=== PATIENT | female | born 1930 | race Caucasian/White ===

== ENCOUNTER 2016-09-17 13:08 | Observation (INO) | payer OTHER, BC ==
[2016-09-17 13:17] VITALS: BMI 33.9
--- NOTE | 2016-09-17 14:13 | PDOC ---
History of Present Illness - History of Present Illness Initial Comments: 09/17/16 18:09 The patient is a 86 year old female, with a significant past medical history of Afib, CHF, hypertension, anemia, and gallstones, who presents to the emergency department via taxi from [address] [place] [address] with persistent nausea withand intermittent diarrhea since Thursday. The patient reports mild left upper quadrant discomfort after episodes of constant dry-heaving. She denies episode of emesis , but reports a few episodes of small, watery, yellow bowel movements. She states she has not eaten a meal since lunch at the nursing facility on Thursday. She states she can not tolerate food, but states she has been drinking water without exacerbating her symptoms. She denies any recent travels or sick contacts. Pt denies any worsening of symptoms with exertion but states she hasnt really gotten to get out of her house since not feeling well. She denies chest pain, shortness of breath, diaphoresis, headache and dizziness. She denies fever, chills, vomit, and constipation. She denies dysuria , frequency, urgency and hematuria. Allergies: IV contrast Past surgical history: appendectomy PMD: Dr. Moeller Repair Specialist - Dr. Floyd <Otilia Henderson - Last Filed: 09/17/16 18:25> <Renzo Zaman - Last Filed: 09/17/16 18:47> - General Chief Complaint: Diarrhea Stated Complaint: LOSS OF APPETITE, TREMORS Time Seen by Provider: 09/17/16 14:05 Past History <Otilia Henderson - Last Filed: 09/17/16 18:25> - Past Medical History Anemia: Yes Cardiac Disorders: Yes (A FIB) CHF: Yes HTN: Yes Thyroid Disease: Yes (DENIES) - Surgical History Appendectomy: Yes Cholecystectomy: Yes - Immunization History Td Vaccination: Yes Immunization Up to Date: (UNKNOWN) - Psycho/Social/Smoking Cessation Hx Anxiety: No Suicidal Ideation: No Smoking Status: No Smoking History: Never smoked Have you smoked in the past 12 months: No Number of Cigarettes Smoked Daily: 0 Hx Alcohol Use: No Drug/Substance Use Hx: No Substance Use Type: None Hx Substance Use Treatment: No <Renzo Zaman - Last Filed: 09/17/16 18:47> - Past Medical History Allergies/Adverse Reactions: Allergies Allergy/AdvReac Type Severity Reaction Status Date / Time Iodinated Contrast Media - Allergy Unknown Hives Verified 09/17/16 13:18 Oral and morphine Allergy Nausea for Verified 09/17/16 13:18 long periods IV Contrast dyes Allergy Hives Uncoded 09/17/16 13:18 Home Medications: Ambulatory Orders Warfarin Sodium [Coumadin] 5 mg PO HS 04/07/14 Latanoprost 0.005% Eye Drops [Xalatan 0.005% Eye Drops -] 0 drop ASDIR 09/17/16 Metoprolol Tartrate [Lopressor -] 25 mg PO DAILY 09/17/16 Nitroglycerin [Minitran] 1 each TD ASDIR 09/17/16 Olmesartan Medoxomil [Benicar (Nf)] 0 mg PO ASDIR 09/17/16 Sennosides/Docusate Sodium [Senna S Tablet] 1 each PO ASDIR 09/17/16 Review of Systems - Review of Systems Able to Perform ROS?: Yes Comments:: 09/17/16 18:10 CONSTITUTIONAL: +Loss of Appetite No reported: Fever, Chills, Diaphoresis, Generalized Weakness , Malaise, HEENT: No reported: Rhinorrhea, Nasal Congestion, Throat Pain, Throat Swelling, Difficulty Swallowing, Mouth Swelling, Ear Pain, Eye Pain, Visual Changes CARDIOVASCULAR: No reported: Chest Pain, Syncope, Palpitations, Irregular Heart Rate, Lightheadedness, Peripheral Edema RESPIRATORY: No reported: Cough, Shortness of Breath, SOB with Exertion, Orthopnea, Wheezing , Stridor, Hemoptysis GASTROINTESTINAL: + Nausea, Diarrhea, No reported: Abdominal pain, Abdominal Distension, Vomiting ,Constipation, Melena, Hematochezia GENITOURINARY: No reported: Dysuria, Frequency, Urgency, Hesitancy, Flank Pain, Genital Pain MUSCULOSKELETAL: No reported: Myalgia, Arthralgia, Joint Swelling, Back pain, Neck Pain SKIN: No reported: Rash, Itching, Pallor HEMEATOLOGIC/IMMUNOLOGIC: No reported: Easy Bleeding, Easy Bruising, Lymphadenopathy, Frequent infections ENDOCRINE: No reported: Unexplained Weight Gain, Unexplained Weight Loss, Heat Intolerance , Cold Intolerance NEUROLOGIC: No reported: Headache, Focal Weakness, Paresthesias, Vertigo, Lightheadedness, Unsteady Gait, Seizure, Mental Status Changes, Incontinence PSYCHIATRIC: No reported: Anxiety, Depression <Morenzi,Otilia - Last Filed: 09/17/16 18:25> *Physical Exam - Vital Signs Last Vital Signs Temp Pulse Resp BP Pulse Ox 98.5 F 78 20 161/83 96 09/17/16 13:14 09/17/16 13:14 09/17/16 13:14 09/17/16 13:14 09/17/16 13:14 - Physical Exam Comments: 09/17/16 18:10 GENERAL: The patient is awake, alert, and fully oriented, Nontoxic - in no acute distress. HEAD: Normocephalic, atraumatic. EYES: extraocular movements intact, sclera anicteric, conjunctiva clear. ENT: Normal voice, Moist mucous membranes. NECK: Normal range of motion, supple LUNGS: Breath sounds equal, clear to auscultation bilaterally. No wheezes, no rhonchi, no rales. HEART: irregularly irregular, without murmur, rub or gallop. ABDOMEN: Soft, nontender, normoactive bowel sounds. No guarding, no rebound.No CVA tenderness EXTREMITIES: Normal range of motion, no edema. No clubbing or cyanosis. No cords, erythema, or tenderness. NEUROLOGICAL: No facial assymetry, Normal speech, PSYCH: Normal mood, normal affect. SKIN: Warm, Dry, normal turgor, <Otilia Henderson - Last Filed: 09/17/16 18:25> - Vital Signs Last Vital Signs Temp Pulse Resp BP Pulse Ox 98.5 F 78 20 161/83 96 09/17/16 13:14 09/17/16 13:14 09/17/16 13:14 09/17/16 13:14 09/17/16 13:14 <Renzo Zaman - Last Filed: 09/17/16 18:47> Heart Score/ECG Review - ECG Impressions Comment:: 09/17/16 18:08 Twelve-lead EKG was performed and reviewed by me. Irregularly irregular Left anterior fascicular block No significant changes when compared with EKG dated 12/03/2014 <Renzo Zaman - Last Filed: 09/17/16 18:47> ED Treatment Course - LABORATORY CBC & Chemistry Diagram: 09/17/16 15:20 09/17/16 15:20 - RADIOLOGY Radiograph Interpretation: 09/17/16 15:42 CXR was read by Dr. 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 Cardiomegaly. Mild increased density in the right lower lung zone, however, this are is not optimally seen in part due to patient rotation. Prominence of right hilum and mass cannot be excluded. CT could be helpful to further evaluate. - Medications Given in the ED: ED Medications Discontinued Medications Generic Name Dose Route Start Last Admin Trade Name Freq PRN Reason Stop Dose Admin Sodium Chloride 500 mls @ 500 mls/hr 09/17/16 14:38 09/17/16 15:25 Normal Saline - IV 09/17/16 15:37 500 mls/hr ASDIR STA Administration Ondansetron HCl 4 mg 09/17/16 14:38 09/17/16 15:25 Zofran Injection IVPB 09/17/16 14:39 4 mg ONCE ONE Administration <Otilia Henderson - Last Filed: 09/17/16 18:25> - LABORATORY CBC & Chemistry Diagram: 09/17/16 15:20 09/17/16 15:20 <Renzo Zaman - Last Filed: 09/17/16 18:47> Medical Decision Making - Medical Decision Making 09/17/16 18:21 Dr. Floyd, stereotyper helper, was oaged via phone answering service at 18:12 requesting a call back for doctor to doctor consult. Dr. Carlisle was paged via phone answering service at 18:22 requesting a call back for doctor to doctor consult and admission of Dr. Moeller's patient. Dr. Carlisle returned the call at 18:25 and the patient's case was discussed. She accepts the patient for admission at this time. <Otilia Henderson - Last Filed: 09/17/16 18:25> - Medical Decision Making 09/17/16 16:47 86Y hx of afib, chf, htn, anemia, gall stones present with persistent nausea and intermittent diarrhea x 5 days pt denies any viji abd pain, fever/chlls, diaphoresis, chest pain although the pt notes she has bene having some STEVENSON. pts exxam is unremarakble, without any notable abd tenderness. differential for the pts persistent nausea and intermittnet diarrhea includes gastroenteritis, gastritis, possible acs as pts sypmtoms are fairly vague will obtain blood work, ekg, will give pepcid, maalox gentle fluid hydration 09/17/16 18:04 trop noted borderline at .11, ?from old event? will bear repeating to trend ekg unchanged from prior will admit to observation for further management will discuss with dr. carlisle and dr. floyd A portion of this note was documented by scribe services under my direction. I have reviewed the details of the note, within reason, and agree with the documentation with the following case summary and management plan written by me 09/17/16 18:[address] Giang and dr. Carlisle will place pt in observation for r/o mi, hydration stable for tele obs Case discussed in detail with admitting physician including history, physical exam and ancillary studies. Admitting physician has assumed care for the patient, will follow all pending diagnostics and will complete the evaluation and treatment. <Renzo Zaman - Last Filed: 09/17/16 18:47> *DC/Admit/Observation/Transfer - Attestations Scribe Attestion: 09/17/16 18:11 Documentation prepared by Otilia Henderson, acting as medical claims assistant for Renzo Zaman MD <Otilia Henderson - Last Filed: 09/17/16 18:25> - Discharge Dispostion Admit: Yes <Renzo Zaman - Last Filed: 09/17/16 18:47> Diagnosis at time of Disposition: Nausea, Gastroenteritis - Discharge Dispostion Condition at time of disposition: Stable - Referrals Referrals: Joelle Moeller [Primary Care Provider] -
[2016-09-17] MEDS ORDERED: ONDANSETRON 4 MG/2 ML VIAL IVPB ONE (14:38)
[2016-09-17] MEDS ORDERED: SODIUM CHLORIDE 500 ML IV STA ×2 (14:38→17:58)
[2016-09-17] MEDS ORDERED: ONDANSETRON 4 MG/2 ML VIAL ONE (15:27)
[2016-09-17 15:33] LABS: BASOPHIL 0.4 % (0-2.0); EOSINOPHIL 0.7 % (0-4.5); MCH 28.8 pg (25.7-33.7); MCHC 32.6 g/dl (32.0-36.0); MEAN CELL VOLUME 88.3 fl (80-96); NEUTROPHILS 65.7 % (42.8-82.8); PLATELET COUNT 200 K/MM3 (134-434); RDW 13.9 % (11.6-15.6); WHITE BLOOD COUNT 5.3 K/mm3 (4.0-10.0)
[2016-09-17] MEDS ORDERED: FAMOTIDINE 20 MG/50 ML IVPB 20 MG in PREMIX 50 IVPB ONE (15:39)
[2016-09-17] MEDS ORDERED: MAG HYDROX/AL HYDROX/SIMETH 355 ML ORAL.SUSP PO ONE (15:39)
[2016-09-17] MEDS ORDERED: MAG HYDROX/AL HYDROX/SIMETH 30 ML UNIT-DOSE CUP ONE (15:43)
[2016-09-17] MEDS ORDERED: FAMOTIDINE 20 MG/50 ML IVPB 50 ML IVPB ONE (15:43)
[2016-09-17 15:52] LABS: ALBUMIN 3.5 g/dl (3.4-5.0); CALCIUM 8.6 mg/dL (8.5-10.1); COCKROFT - GAULT 62.968
[2016-09-17 15:54] LABS: TOT PROT 6.9 g/dl (6.4-8.2)
[2016-09-17 15:57] LABS: TROPONIN I 0.11 ng/ml (0.00-0.05)
[2016-09-17 17:00] LABS: URINE APPEARANCE CLEAR; URINE BILIRUBIN NEGATIVE (NEGATIVE); URINE COLOR LTYELLOW; URINE GLUCOSE (UA) NEGATIVE (NEGATIVE); URINE KETONE NEGATIVE (NEGATIVE); URINE NITRITE NEGATIVE (NEGATIVE); URINE PROTEIN NEGATIVE (NEGATIVE); URINE UROBILINOGEN NEGATIVE E.U./dl (0.2-1.0)
[2016-09-17 17:05] LABS: URINE BLOOD 1+ (NEGATIVE); URINE LEUK ESTERASE 1+ (NEGATIVE)
[2016-09-17 17:07] LABS: URINE BACTERIA RARE /hpf (NONE SEEN); URINE MUCUS RARE; URINE RBC 1 /hpf (0-3); URINE WBC 10 /hpf (3-5)
[2016-09-17] MEDS ORDERED: ASPIRIN 81 MG CHEWABLE TABLETS PO ONE (17:17)
[2016-09-17 19:11] LABS: INR 1.86 (0.82-1.09); PROTHROMBIN TIME (PATIENT) 20.7 SEC (9.98-11.88)
[2016-09-18] MEDS: WARFARIN NA 5 MG TABLET (UD) PO SCH ×2 (00:12→18:17)
[2016-09-18] MEDS: METOPROLOL TARTRATE 25 MG TABLET (FP) PO SCH ×3 (00:13→21:12)
[2016-09-18 07:12] LABS: BASOPHIL 0.7 % (0-2.0); EOSINOPHIL 1.4 % (0-4.5); MCH 29.6 pg (25.7-33.7); MCHC 33.6 g/dl (32.0-36.0); NEUTROPHILS 54.6 % (42.8-82.8); PLATELET COUNT 176 K/MM3 (134-434); RDW 13.9 % (11.6-15.6); WHITE BLOOD COUNT 4.7 K/mm3 (4.0-10.0)
[2016-09-18 07:33] LABS: INR 2.03 (0.82-1.09); PROTHROMBIN TIME (PATIENT) 22.6 SEC (9.98-11.88)
[2016-09-18 07:41] LABS: CALCIUM 8.6 mg/dL (8.5-10.1)
[2016-09-18 07:42] LABS: COCKROFT - GAULT 66.9715; CREATININE 0.9 mg/dL (0.55-1.02)
--- NOTE | 2016-09-18 08:40 | HP ---
Admitting History and Physical - Admission History of Present Illness: The patient is a 86 year old female, with a significant past medical history of Afib, CHF, hypertension, anemia, and gallstones, who presents to the emergency department via taxi from [address] [place] [address] with persistent nausea and intermittent diarrhea since Thursday. The patient reports mild left upper quadrant discomfort after episodes of constant dry-heaving. She denies episode of emesis, but reports a few episodes of small, watery, yellow bowel movements. she denies fever / chills / blood in stools. She states she has not eaten a meal since lunch on Thursday. She states she can not tolerate food, but states she has been drinking water without exacerbating her symptoms. She denies any recent travels or sick contacts. Pt denies any worsening of symptoms with exertion but has remained at home for last few days She denies chest pain, shortness of breath, diaphoresis, headache and dizziness. this morning tolerating PO well - no nausea / vomiting reports 7 episodes of diarrhea last nght ?? reports only watery stools History Source: Patient, Medical Record Limitations to Obtaining History: No Limitations - Past Medical History [employer]: Yes: Vertigo Cardiovascular: Yes: AFIB (on coumadin), CHF (diastolic), HTN Gastrointestinal: Yes: Other (hx hepatitis A / reports similar episodes about every 2 months most subside on their own -- takes Zofran PRN as out patient) ...: No Heme/Onc: Yes: Anemia Endocrine: Yes: [place]'s Disease, Hypothyroidism, Other (Goiter) - Past Surgical History Past Surgical History: Yes: Appendectomy, Hysterectomy - Smoking History Smoking history: Never smoked Have you smoked in the past 12 months: No Aproximately how many cigarettes per day: 0 - Alcohol/Substance Use Hx Alcohol Use: No History of Substance Use: reports: None - Social History Usual Living Arrangement: Yes: Alone ADL: Support Services History of Recent Travel: No Home Medications - Allergies Allergies/Adverse Reactions: Allergies Allergy/AdvReac Type Severity Reaction Status Date / Time Iodinated Contrast Media - Allergy Unknown Hives Verified 09/17/16 13:18 Oral and morphine Allergy Nausea for Verified 09/17/16 13:18 long periods IV Contrast dyes Allergy Hives Uncoded 09/17/16 13:18 - Home Medications Home Medications: Ambulatory Orders Warfarin Sodium [Coumadin] 5 mg PO HS 04/07/14 Latanoprost 0.005% Eye Drops [Xalatan 0.005% Eye Drops -] 0 drop ASDIR 09/17/16 Metoprolol Tartrate [Lopressor -] 25 mg PO DAILY 09/17/16 Nitroglycerin [Minitran] 1 each TD ASDIR 09/17/16 Olmesartan Medoxomil [Benicar (Nf)] 0 mg PO ASDIR 09/17/16 Sennosides/Docusate Sodium [Senna S Tablet] 1 each PO ASDIR 09/17/16 Family Disease History - Family Disease History Family Disease History: Heart Disease: Sister (1 sister of heart dz; another sister of Alzheimer's) Review of Systems - Review of Systems Constitutional: reports: Loss of Appetite, Malaise, Weakness Eyes: reports: No Symptoms HENT: reports: No Symptoms Neck: reports: No Symptoms Cardiovascular: reports: No Symptoms Respiratory: reports: No Symptoms Gastrointestinal: reports: Abdominal Pain, Diarrhea, Nausea Genitourinary: reports: No Symptoms Breasts: reports: No Symptoms Reported Musculoskeletal: reports: No Symptoms Integumentary: reports: No Symptoms Neurological: reports: No Symptoms Endocrine: reports: No Symptoms Hematology/Lymphatic: reports: No Symptoms Psychiatric: reports: No Symptoms Physical Examination Vital Signs: Vital Signs Temperature 98.1 F 09/18/16 05:00 Pulse Rate 68 09/18/16 05:00 Respiratory Rate 18 09/18/16 05:00 Blood Pressure 179/72 09/18/16 05:00 O2 Sat by Pulse Oximetry (%) 97 09/17/16 22:36 Constitutional: Yes: Well Nourished, No Distress, Calm Eyes: Yes: Conjunctiva Clear, EOM Intact HENT: Yes: Atraumatic, Normocephalic Neck: Yes: WNL, Supple, Trachea Midline Cardiovascular: Yes: WNL, Pulse Irregular Respiratory: Yes: Regular, CTA Bilaterally Gastrointestinal: Yes: Normal Bowel Sounds, Soft, Abdomen, Obese, Tenderness ( diffusely tender left lower quadrant / no guarding) Renal/: Yes: WNL Musculoskeletal: Yes: WNL Extremities: Yes: WNL Peripheral Pulses WNL: Yes Peripheral Pulses: Left Radial: 1+, Right Radial: 1+, Left Doralis Pedis: 1+, Right Dorsalis Pedis: 1+, Left Femoral: 1+, Right Femoral: 1+ Integumentary: Yes: WNL Wound/Incision: Yes: Clean/Dry Neurological: Yes: Alert, Oriented Psychiatric: Yes: Alert, Oriented Labs: CBC, BMP 09/18/16 05:35 09/18/16 05:35 Problem List - Problems (1) Gastroenteritis Code(s): K52.9 - NONINFECTIVE GASTROENTERITIS AND COLITIS, UNSPECIFIED (2) Nausea Code(s): R11.0 - NAUSEA (3) Atrial fibrillation Code(s): I48.91 - UNSPECIFIED ATRIAL FIBRILLATION (4) Dizziness Code(s): R42 - DIZZINESS AND GIDDINESS (5) Fatigue Code(s): R53.83 - OTHER FATIGUE (6) Hypertension Code(s): I10 - ESSENTIAL (PRIMARY) HYPERTENSION
[2016-09-18] MEDS: PANTOPRAZOLE 40 MG TABLET (FP) PO SCH (09:55)
[2016-09-18] MEDS ORDERED: METOPROLOL TARTRATE 25 MG TABLET (FP) PO SCH (10:00)
[2016-09-18] MEDS ORDERED: LOSARTAN POTASSIUM 50 MG TABLET (FP) PO SCH (10:00)
[2016-09-18 10:40] LABS: TROPONIN I 0.1 ng/ml (0.00-0.05)
--- NOTE | 2016-09-18 11:33 | CON.CARD ---
Cardiology Consult (text) - Consultation Consultation Note: cc: sent from [facility] for n/v hpi: 86 f hx dchf, htn, afib, dvts, hep b, sent from [facility] for n/v. For years has intermittent episodes of n/v/lack of appetite. Hadn't happened in a while then occurred few days ago with nausea/vomiting/diarrhea/abd pain. No cp, sob, palps, dizzy, loc, pnd, orthopnea, le edema. Ate breakfast this AM and feeling better now. Sees dr floyd for cardio. pmh: per hpi psh: appendectomy, hysterectomy social: no tob fam: no premature cad, scd ros: per hpi; no fever, cough, nasal congestion, PHILIPPE, vision changes, rash, gib , hematuria, dysuria meds: Ambulatory Orders Warfarin Sodium [Coumadin] 5 mg PO HS 04/07/14 Latanoprost 0.005% Eye Drops [Xalatan 0.005% Eye Drops -] 0 drop ASDIR 09/17/16 Metoprolol Tartrate [Lopressor -] 25 mg PO DAILY 09/17/16 Nitroglycerin [Minitran] 1 each TD ASDIR 09/17/16 Olmesartan Medoxomil [Benicar (Nf)] 0 mg PO ASDIR 09/17/16 Sennosides/Docusate Sodium [Senna S Tablet] 1 each PO ASDIR 09/17/16 pe: Vital Signs Period Temp Pulse Resp BP Sys/Menjivar Pulse Ox Last 24 Hr 97.9 F-98.9 F 60-78 18-20 151-191/72-98 96-97 nad no jvd irreg s1s2 no mrg cta bl nl eff aaox3 no le e/c/c abd nt nd pos bs no jaundice diaphoresis pos dp pt no carotid bruits Laboratory Last Values WBC 4.7 K/mm3 (4.0-10.0) 09/18/16 05:35 RBC 4.76 M/mm3 (3.60-5.2) 09/18/16 05:35 Hgb 14.1 GM/dL (10.7-15.3) 09/18/16 05:35 Hct 41.8 % (32.4-45.2) 09/18/16 05:35 MCV 88.0 fl (80-96) 09/18/16 05:35 MCHC 33.6 g/dl (32.0-36.0) 09/18/16 05:35 RDW 13.9 % (11.6-15.6) 09/18/16 05:35 Plt Count 176 K/MM3 (134-434) 09/18/16 05:35 MPV 9.0 fl (7.5-11.1) 09/18/16 05:35 Neutrophils % 54.6 % (42.8-82.8) 09/18/16 05:35 Lymphocytes % 31.1 % (8-40) D 09/18/16 05:35 Monocytes % 12.2 % (3.8-10.2) H 09/18/16 05:35 Eosinophils % 1.4 % (0-4.5) D 09/18/16 05:35 Basophils % 0.7 % (0-2.0) 09/18/16 05:35 INR 2.03 (0.82-1.09) H 09/18/16 05:35 Sodium 142 mmol/L (136-145) 09/18/16 05:35 Potassium 3.7 mmol/L (3.5-5.1) 09/18/16 05:35 Chloride 104 mmol/L (98-107) 09/18/16 05:35 Carbon Dioxide 26 mmol/L (21-32) 09/18/16 05:35 Anion Gap 12 (8-16) 09/18/16 05:35 BUN 10 mg/dL (7-18) 09/18/16 05:35 Creatinine 0.9 mg/dL (0.55-1.02) 09/18/16 05:35 Creat Clearance w eGFR 52.82 (>60) 09/17/16 15:20 Random Glucose 95 mg/dL (74-106) 09/18/16 05:35 Calcium 8.6 mg/dL (8.5-10.1) 09/18/16 05:35 Magnesium 2.0 mg/dL (1.8-2.4) 09/18/16 05:35 Total Bilirubin 1.0 mg/dL (0.2-1.0) 09/17/16 15:20 AST 30 U/L (15-37) D 09/17/16 15:20 ALT 22 U/L (12-78) 09/17/16 15:20 Alkaline Phosphatase 55 U/L (45-117) 09/17/16 15:20 Creatine Kinase 157 IU/L (26-192) 09/18/16 05:35 Troponin I 0.10 ng/ml (0.00-0.05) H 09/18/16 05:35 Total Protein 6.9 g/dl (6.4-8.2) 09/17/16 15:20 Albumin 3.5 g/dl (3.4-5.0) 09/17/16 15:20 Lipase 158 U/L (73-393) 09/17/16 15:20 Urine Color Ltyellow 09/17/16 16:26 Urine Appearance Clear 09/17/16 16:26 Urine pH 5.0 (5.0-8.0) D 09/17/16 16:26 Ur Specific [place] <= 1.005 (1.005-1.025) 09/17/16 16:26 Urine Protein Negative (NEGATIVE) 09/17/16 16:26 Urine Glucose (UA) Negative (NEGATIVE) 09/17/16 16:26 Urine Ketones Negative (NEGATIVE) 09/17/16 16:26 Urine Blood 1+ (NEGATIVE) H 09/17/16 16:26 Urine Nitrite Negative (NEGATIVE) 09/17/16 16:26 Urine Bilirubin Negative (NEGATIVE) 09/17/16 16:26 Urine Urobilinogen Negative E.U./dl (0.2-1.0) 09/17/16 16:26 Ur Leukocyte Esterase 1+ (NEGATIVE) H 09/17/16 16:26 Urine RBC 1 /hpf (0-3) 09/17/16 16:26 Urine WBC 10 /hpf (3-5) 09/17/16 16:26 Ur Epithelial Cells Rare /hpf (FEW) 09/17/16 16:26 Urine Bacteria Rare /hpf (NONE SEEN) 09/17/16 16:26 Urine Mucus Rare 09/17/16 16:26 ecg 09/17/16: afib, 70, nl qtc, lvh, no ischemic changes cxr: no chf echo 09/2014: nl lv/rv, mod lae, mild ar/mr tele: rate controlled afib a/p: 86 f hx dchf, htn, afib, dvts, hep b, sent from [facility] for n/v. n/v/d: -no obvious cardiac etiology -trop in borderline range with nl ck and flat trend. Prior similar trop levels in 2013 and 2014 so these elevations represent her baseline and not acs. -w/u per pmd dchf: -stable, no vol overload -check updated echo htn: -cont home meds, likely elevated 2/2 pain yesterday, monitor afib: -rate controlled on bb -cont ac per inr if echo benign then ok for dc from cardiac pov
[2016-09-18] MEDS: NITROGLYCERIN 0.2 MG/HOUR TD PATCH TD SCH (12:01)
--- NOTE | 2016-09-18 16:30 | EKG ---
Test Reason : Blood Pressure : / mmHG Vent. Rate : 068 BPM Atrial Rate : 052 BPM P-R Int : 000 ms QRS Dur : 122 ms QT Int : 440 ms P-R-T Axes : 000 -52 060 degrees QTc Int : 467 ms ATRIAL FIBRILLATION LEFT ANTERIOR FASCICULAR BLOCK LEFT VENTRICULAR HYPERTROPHY WITH QRS WIDENING ABNORMAL ECG WHEN COMPARED WITH ECG OF 03-DEC-2014 16:24, NO SIGNIFICANT CHANGE WAS FOUND Confirmed by AP RESTREPO, VIV ([id number]) on 09/18/2016 4:30:21 PM Referred By: Confirmed By:VIV DE SOUZA MD
[2016-09-18] MEDS ORDERED: LOSARTAN POTASSIUM 50 MG TABLET (FP) PO ONE (18:00)
[2016-09-18] MEDS ORDERED: WARFARIN NA 5 MG TABLET (UD) PO SCH (18:00)
[2016-09-18] MEDS: ONDANSETRON 4 MG/2 ML VIAL IVPUSH PRN (18:17)
[2016-09-18] MEDS: SENNOSIDES 8.6MG TABLET (FP) PO SCH (21:13)
[2016-09-18] MEDS ORDERED: PT OWN MED DRAWER 7, Y5N ONE (22:39)
[2016-09-19] MEDS ORDERED: PT OWN MED DRAWER 7, Y5N ONE (09:27)
[2016-09-19] MEDS: LOSARTAN POTASSIUM 50 MG TABLET (FP) PO SCH (09:29)
[2016-09-19] MEDS: amLODIPine BESYLATE 5 MG TABLET (FP) PO SCH (09:29)
[2016-09-19] MEDS: METOPROLOL TARTRATE 25 MG TABLET (FP) PO SCH ×2 (09:29→21:52)
[2016-09-19] MEDS: PANTOPRAZOLE 40 MG TABLET (FP) PO SCH (09:29)
--- NOTE | 2016-09-19 10:54 | PN ---
Progress Note (short form) - Note Progress Note: s: no cp sob palps dizzy; ate this AM, stomach feeling better o: Vital Signs Period Temp Pulse Resp BP Sys/Menjivar Pulse Ox Last 24 Hr 97.5 F-98.1 F 59-73 16-18 165-178/69-85 97 nad no jvd irreg s1s2 no mrg cta bl nl eff aaox3 no le e/c/c abd nt nd pos bs no jaundice diaphoresis Current Medications Generic Name Dose Route Start Last Admin Trade Name Freq PRN Reason Stop Dose Admin Amlodipine Besylate 5 mg 09/19/16 10:00 09/19/16 09:29 Norvasc - PO 5 mg DAILY AMALIA Administration Losartan Potassium 100 mg 09/19/16 10:00 09/19/16 09:29 Cozaar - PO 100 mg DAILY AMALIA Administration Metoprolol Tartrate 25 mg 09/17/16 23:45 09/19/16 09:29 Lopressor - PO 25 mg BID AMALIA Administration Nitroglycerin 0.2 mg 09/18/16 10:00 09/18/16 12:01 Nitro-Dur Patch - TD 0.2 mg DAILY AMALIA Administration Ondansetron HCl 4 mg 09/18/16 09:01 09/18/16 18:17 Zofran Injection IVPUSH 4 mg Q6H PRN Administration NAUSEA AND/OR VOMITING Pantoprazole Sodium 40 mg 09/18/16 10:00 09/19/16 09:29 Protonix - PO 40 mg DAILY AMALIA Administration Senna 1 tab 09/18/16 22:00 09/18/16 21:13 Senna - PO 1 tab HS AMALIA Administration Warfarin Sodium 5 mg 09/17/16 23:45 09/18/16 18:17 Coumadin - PO 5 mg DAILY@1800 AMALIA Administration CBC, BMP 09/18/16 05:35 09/18/16 05:35 ecg 09/17/16: afib, 70, nl qtc, lvh, no ischemic changes cxr: no chf echo 09/2014: nl lv/rv, mod lae, mild ar/mr echo 09/2016: nl lv/rv, mild lae, mild mr, mild pulm htn, mod tele: rate controlled afib a/p: 86 f hx dchf, htn, afib, dvts, hep b, sent from [facility] for n/v. n/v/d: -no obvious cardiac etiology -trop in borderline range with nl ck and flat trend. Prior similar trop levels in 2013 and 2014 so these elevations represent her baseline and not acs. -w/u per pmd/GI dchf: -stable, no vol overload -echo with nl lvef, no severe valve dz htn: -remains elevated despite increasing cozaar yesterday. Will add norvasc 5mg today. afib: -rate controlled on bb -cont ac per inr : -moderate on echo here, cont routine outpt monitoring
[2016-09-19] MEDS: NITROGLYCERIN 0.2 MG/HOUR TD PATCH TD SCH (11:43)
[2016-09-19] MEDS: ONDANSETRON 4 MG/2 ML VIAL IVPUSH PRN (14:10)
--- NOTE | 2016-09-19 16:02 | CON.GI ---
Consult Consult Specialty:: GI Referred by:: Dr. Carlisle Reason for Consultation:: nausea, vomiting and diarrhea - History of Present Illness Chief Complaint: I was nauseaous and couldn't take any food for 4 days History of Present Illness: 86F admitted though [facility] ER for evaluation of nausea, vomiting and diarrhea. She is followed by Dr. Lenz and last saw him 03/05 for similar complaints. at that time he felt that she had chronic nausea without weight loss and advised CT head to exclude brain lesion (this has been performed and was negative), trial of an antidepressant, and he felt that he gallstones were not the cause of her chronic nausea. She says that this episode was different than previous as she simply could not tolerate any solids or liquids for 4 days priot to admission and did not want to eat. She had associated diarrhea as well however there was no abdominal pain. there were no fevers/chills. Electrolytes and BUN were normal on admission as was her WBC. There has been no diarrhea reported and seems to have been tolerating food during the admission. 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 She had an unrevealing non contrast CT scan of the abdomen and pelvis in 2013 aside from gallstones. - History Source History Provided By: Patient, Medical Record Limitations to Obtaining History: No Limitations - Past Medical History [employer]AD[employer]: Yes: Vertigo Cardio/Vascular: Yes: AFIB (on coumadin), CHF (diastolic), HTN, Other (Moderate aortic stenosis) Gastrointestinal: Yes: Other (hx hepatitis A / reports similar episodes about every 2 months most subside on their own -- takes Zofran PRN as out patient) ...: No Endocrine: Yes: Juniata's Disease, Hypothyroidism, Other (Goiter) - Past Surgical History Past Surgical History: Yes: Appendectomy, Hysterectomy - Alcohol/Substance Use Hx Alcohol Use: No History of Substance Use: reports: None - Smoking History Smoking history: Never smoked Have you smoked in the past 12 months: No Aproximately how many cigarettes per day: 0 - Social History Usual Living Arrangement: Assisted Living ADL: Support Services Place of : [place] History of Recent Travel: No Home Medications - Allergies Allergies/Adverse Reactions: Allergies Allergy/AdvReac Type Severity Reaction Status Date / Time Iodinated Contrast Media - Allergy Unknown Hives Verified 09/17/16 13:18 Oral and morphine Allergy Nausea for Verified 09/17/16 13:18 long periods IV Contrast dyes Allergy Hives Uncoded 09/17/16 13:18 - Home Medications Home Medications: Ambulatory Orders Warfarin Sodium [Coumadin] 5 mg PO HS 04/07/14 Latanoprost 0.005% Eye Drops [Xalatan 0.005% Eye Drops -] 0 drop ASDIR 09/17/16 Metoprolol Tartrate [Lopressor -] 25 mg PO DAILY 09/17/16 Nitroglycerin [Minitran] 1 each TD ASDIR 09/17/16 Olmesartan Medoxomil [Benicar (Nf)] 0 mg PO ASDIR 09/17/16 Sennosides/Docusate Sodium [Senna S Tablet] 1 each PO ASDIR 09/17/16 Family Disease History - Family Disease History Family Disease History: Heart Disease: Sister (1 sister of heart dz; another sister of Alzheimer's) Other Family History: No family history of colorectal cancer or other GI malignancy Review of Systems - Review of Systems Constitutional: denies: Chills, Diaphoresis Cardiovascular: denies: Chest Pain, Shortness of Breath Respiratory: denies: Cough Gastrointestinal: reports: Diarrhea, Nausea, Vomiting. denies: Abdominal Pain, Constipation, Dysphagia, Melena, Rectal Bleeding, Vomiting Blood Physical Exam-GI Vital Signs: Vital Signs Temperature 98.2 F 09/19/16 14:41 Pulse Rate 61 09/19/16 14:41 Respiratory Rate 16 09/19/16 14:41 Blood Pressure 157/90 09/19/16 14:41 O2 Sat by Pulse Oximetry (%) 95 09/19/16 09:00 Constitutional: Yes: Calm Eyes: No: Sclera Icterus Cardiovascular: Yes: Regular Rate and Rhythm, Murmur Respiratory: Yes: CTA Bilaterally Gastrointestinal Inspection: Yes: Scars (+ pelvic surgical scar). No: Distention ...Auscultate: Yes: Normoactive Bowel Sounds ...Palpate: No: Tenderness ...Percussion: No: Tympanitic ...Rectal Exam: Yes: Guaiac Negative (trace light brown stool) Edema: Yes (trace LE edema) Neurological: Yes: Alert, Oriented Labs: CBC, BMP 09/18/16 05:35 09/18/16 05:35 INR, PTT INR 2.03 (0.82-1.09) H 09/18/16 05:35 Hepatic Panel Total Bilirubin 1.0 mg/dL (0.2-1.0) 09/17/16 15:20 AST 30 U/L (15-37) D 09/17/16 15:20 ALT 22 U/L (12-78) 09/17/16 15:20 Alkaline Phosphatase 55 U/L (45-117) 09/17/16 15:20 Albumin 3.5 g/dl (3.4-5.0) 09/17/16 15:20 Problem List - Problems (1) Nausea Assessment/Plan: Acute on chronic complaint: CT scan of the abdomen and pelvis with PO contrast Low residue diet consider changing BP medication from benicar as it can cause a sprue like intestinal disease probiotic HIDA with EF If unrevealing, MRI of the abdomen with contrast (given her iodinated IV contrast allergy) If diarrhea, check stool for c. diff, O&P, culture, norovirus Code(s): R11.0 - NAUSEA
[2016-09-19] MEDS: LACTOBACILLUS ACIDOPHILUS 1 EACH TAB (FP) PO SCH (17:58)
[2016-09-19 18:06] LABS: INR 2.23 (0.82-1.09); PROTHROMBIN TIME (PATIENT) 24.9 SEC (9.98-11.88)
[2016-09-19] MEDS: WARFARIN NA 5 MG TABLET (UD) PO SCH (18:43)
[2016-09-19] MEDS ORDERED: amLODIPine BESYLATE 5 MG TABLET (FP) PO ONE (18:45)
[2016-09-19] MEDS: SENNOSIDES 8.6MG TABLET (FP) PO SCH (21:52)
--- NOTE | 2016-09-19 22:43 | PN ---
Progress Note (short form) - Note Progress Note: sitting in chair tolerating PO well reports has regained her appetite no documented diarrhea denies abdominal pain Vital Signs Period Temp Pulse Resp BP Sys/Menjivar Pulse Ox Last 24 Hr 97.5 F-98.6 F 59-71 16-18 157-198/67-90 95 neck supple heart reg S1/S2 lungs clear bilat abd soft non tender ext race edema / no calf tenderness CBC, BMP 09/18/16 05:35 09/18/16 05:35 INR, PTT INR 2.23 (0.82-1.09) H 09/19/16 16:30 appreciate Cardio follow up and GI consult HTN medication adjusted as per GI recommendation will keep off Benicar and adjust meds for adequate control Problem List - Problems (1) Hypertension Assessment/Plan: uncontrolled / meds adjusted Code(s): I10 - ESSENTIAL (PRIMARY) HYPERTENSION (2) Nausea Code(s): R11.0 - NAUSEA (3) Atrial fibrillation Code(s): I48.91 - UNSPECIFIED ATRIAL FIBRILLATION (4) Gastroenteritis Code(s): K52.9 - NONINFECTIVE GASTROENTERITIS AND COLITIS, UNSPECIFIED (5) Dizziness Code(s): R42 - DIZZINESS AND GIDDINESS (6) Fatigue Code(s): R53.83 - OTHER FATIGUE
[2016-09-20] MEDS ORDERED: PT OWN MED DRAWER 7, Y5N ONE (10:24)
[2016-09-20] MEDS: LACTOBACILLUS ACIDOPHILUS 1 EACH TAB (FP) PO SCH (10:28)
[2016-09-20] MEDS: amLODIPine BESYLATE 5 MG TABLET (FP) PO SCH (10:29)
[2016-09-20] MEDS: PANTOPRAZOLE 40 MG TABLET (FP) PO SCH (10:29)
[2016-09-20] MEDS: METOPROLOL TARTRATE 25 MG TABLET (FP) PO SCH ×2 (10:29→22:10)
[2016-09-20] MEDS: LOSARTAN POTASSIUM 50 MG TABLET (FP) PO SCH (10:29)
[2016-09-20] MEDS ORDERED: amLODIPine BESYLATE 10 MG TABLET (FP) PO SCH (11:15)
[2016-09-20] MEDS ORDERED: FUROSEMIDE 40 MG TABLET (FP) PO ONE (11:15)
[2016-09-20 11:28] LABS: INR 2.52 (0.82-1.09); PROTHROMBIN TIME (PATIENT) 28.3 SEC (9.98-11.88)
--- NOTE | 2016-09-20 12:05 | PN ---
Progress Note (short form) - Note Progress Note: sitting in chair comfortable but states still with GI discomfort No Nausea / vomiting / diarrhea concerned over all the testing done / I have reviewed all with her. Vital Signs Period Temp Pulse Resp BP Sys/Menjivar Pulse Ox Last 24 Hr 97.8 F-99 F 61-71 16-18 157-198/67-91 95-96 neck supple heart S1/s2 lungs clear bilat abd soft non tender / no guarding ext no calf tenderness CBC, BMP 09/18/16 05:35 09/18/16 05:35 INR, PTT INR 2.52 (0.82-1.09) H 09/20/16 10:[address] of abd /pelvis HIDA requested yet patient declines / aware she has gallstones Will D/C HIDA Active Medications Amlodipine Besylate (Norvasc -) 10 mg PO DAILY [facility] Lactobacillus Acidophilus (Bacid -) 1 tab PO DAILY [facility] Last Admin: 09/20/16 10:28 Dose: 1 tab Losartan Potassium (Cozaar -) 100 mg PO DAILY [facility] Last Admin: 09/20/16 10:29 Dose: 100 mg Metoprolol Tartrate (Lopressor -) 25 mg PO BID [facility] Last Admin: 09/20/16 10:29 Dose: 25 mg Nitroglycerin (Nitro-Dur Patch -) 0.2 mg TD DAILY [facility] Last Admin: 09/19/16 11:43 Dose: 0.2 mg Ondansetron HCl (Zofran Injection) 4 mg IVPUSH Q6H PRN PRN Reason: NAUSEA AND/OR VOMITING Last Admin: 09/19/16 14:10 Dose: 4 mg Pantoprazole Sodium (Protonix -) 40 mg PO DAILY [facility] Last Admin: 09/20/16 10:29 Dose: 40 mg Senna (Senna -) 1 tab PO HS [facility] Last Admin: 09/19/16 21:52 Dose: 1 tab Warfarin Sodium (Coumadin -) 5 mg PO DAILY@1800 [facility] Last Admin: 09/19/16 18:43 Dose: 5 mg Problem List - Problems (1) Hypertension Assessment/Plan: NOrvasc increased will add HCTZ 12.5 mg Q Day continue with Losartan instead of Benicar as out patient Code(s): I10 - ESSENTIAL (PRIMARY) HYPERTENSION (2) Nausea Code(s): R11.0 - NAUSEA (3) Atrial fibrillation Code(s): I48.91 - UNSPECIFIED ATRIAL FIBRILLATION (4) Gastroenteritis Code(s): K52.9 - NONINFECTIVE GASTROENTERITIS AND COLITIS, UNSPECIFIED (5) Dizziness Code(s): R42 - DIZZINESS AND GIDDINESS (6) Fatigue Code(s): R53.83 - OTHER FATIGUE
--- NOTE | 2016-09-20 12:15 | PN ---
Progress Note, Physician History of Present Illness: No CV complaints Tele Afib 50s - Current Medication List Current Medications: Active Medications Amlodipine Besylate (Norvasc -) 10 mg PO DAILY [facility] Hydrochlorothiazide (Hctz -) 12.5 mg PO DAILY [facility] Lactobacillus Acidophilus (Bacid -) 1 tab PO DAILY [facility] Last Admin: 09/20/16 10:28 Dose: 1 tab Losartan Potassium (Cozaar -) 100 mg PO DAILY [facility] Last Admin: 09/20/16 10:29 Dose: 100 mg Metoprolol Tartrate (Lopressor -) 25 mg PO BID [facility] Last Admin: 09/20/16 10:29 Dose: 25 mg Nitroglycerin (Nitro-Dur Patch -) 0.2 mg TD DAILY [facility] Last Admin: 09/19/16 11:43 Dose: 0.2 mg Ondansetron HCl (Zofran Injection) 4 mg IVPUSH Q6H PRN PRN Reason: NAUSEA AND/OR VOMITING Last Admin: 09/19/16 14:10 Dose: 4 mg Pantoprazole Sodium (Protonix -) 40 mg PO DAILY [facility] Last Admin: 09/20/16 10:29 Dose: 40 mg Senna (Senna -) 1 tab PO HS [facility] Last Admin: 09/19/16 21:52 Dose: 1 tab Warfarin Sodium (Coumadin -) 5 mg PO DAILY@1800 [facility] Last Admin: 09/19/16 18:43 Dose: 5 mg - Objective Vital Signs: Vital Signs Temperature 99 F 09/20/16 09:21 Pulse Rate 67 09/20/16 09:21 Respiratory Rate 18 09/20/16 09:21 Blood Pressure 184/76 09/20/16 09:21 O2 Sat by Pulse Oximetry (%) 96 09/20/16 09:00 Constitutional: Yes: No Distress Eyes: Yes: WNL HENT: Yes: WNL Neck: Yes: WNL Cardiovascular: Yes: Pulse Irregular Respiratory: Yes: Regular, CTA Bilaterally Edema: No Labs: CBC, BMP 09/18/16 05:35 09/18/16 05:35 INR, PTT INR 2.52 (0.82-1.09) H 09/20/16 10:50 Assessment/Plan a/p: 86 f hx dchf, htn, afib, dvts, hep b, sent from [facility] for n/v. n/v/d: -no obvious cardiac etiology -trop in borderline range with nl ck and flat trend. Prior similar trop levels in 2013 and 2014 so these elevations represent her baseline and not acs. -w/u per pmd/GI dchf: -stable, no vol overload -echo with nl lvef, no severe valve dz htn: -remains elevated despite increasing cozaar yesterday. Will increase norvasc to 10mg today. Will given single dose furosemide afib: -rate controlled on bb -cont ac per inr : -moderate on echo here, cont routine outpt monitoring
[2016-09-20] MEDS ORDERED: amLODIPine BESYLATE 5 MG TABLET (FP) PO ONE (12:45)
[2016-09-20] MEDS: NITROGLYCERIN 0.2 MG/HOUR TD PATCH TD SCH (12:49)
[2016-09-20] MEDS: HYDROCHLOROTHIAZIDE 12.5 MG CAPSULE (FP) PO SCH (12:52)
--- NOTE | 2016-09-20 14:14 | PN ---
GI Progress Note Subjective: GI F/U NOTE PT APPEARS VERY COMFORTABLE OOB IN CHAIR RESTING COMFORTABLY FEELS A LITTLE BETTER NO F/C/S NO VOMITING SOME NAUSEA NO PAIN NO BM GOING TO TRY SOME FRUIT - Objective Vital Signs: Vital Signs Temperature 98.8 F 09/20/16 13:40 Pulse Rate 62 09/20/16 13:40 Respiratory Rate 18 09/20/16 13:40 Blood Pressure 157/75 09/20/16 13:40 O2 Sat by Pulse Oximetry (%) 96 09/20/16 09:00 Constitutional: Well Nourished, No Distress, Calm (+BS/SOFT/NT NO M/R/G) Labs: CBC, BMP 09/18/16 05:35 09/18/16 05:35 INR, PTT INR 2.52 (0.82-1.09) H 09/20/16 10:50 Assessment/Plan CHRONIC INTERMITTENT NASUSEA OF LONGSTANDING DURATION HAS HAD W/U IN PAST WITHOUT FINDINGS NOW FEELS BETTER NO OTHER GI COMPLAINTS AT ALL NO PAIN PT HAS KNOWN GALLSTONES, BUT THAT DOESNOT APPEAR TO BE THE CULPRIT HAS NORMAL EXAM, LABS, AND CT SCAN NO ACUTE GI FINDINGS SUPPORTIVE CARE/ INCREASE DIET/ OBSERVE MD BERENICE
[2016-09-20] MEDS: WARFARIN NA 5 MG TABLET (UD) PO SCH (18:21)
[2016-09-20] MEDS: SENNOSIDES 8.6MG TABLET (FP) PO SCH (22:09)
[2016-09-21] MEDS ORDERED: DOCUSATE SODIUM 100 MG CAPSULE (FP) PO ONE (06:30)
[2016-09-21] MEDS ORDERED: POLYETHYLENE GLYCOL 3350 119 GM BTL PO ONE (06:30)
[2016-09-21 08:55] LABS: INR 2.79 (0.82-1.09); PROTHROMBIN TIME (PATIENT) 31.3 SEC (9.98-11.88)
--- NOTE | 2016-09-21 09:12 | PN ---
Progress Note, Physician History of Present Illness: No CV complaints Tele HR 40s - Current Medication List Current Medications: Active Medications Amlodipine Besylate (Norvasc -) 10 mg PO DAILY [facility] Hydrochlorothiazide (Hctz -) 12.5 mg PO DAILY [facility] Last Admin: 09/20/16 12:52 Dose: 12.5 mg Lactobacillus Acidophilus (Bacid -) 1 tab PO DAILY [facility] Last Admin: 09/20/16 10:28 Dose: 1 tab Losartan Potassium (Cozaar -) 100 mg PO DAILY [facility] Last Admin: 09/20/16 10:29 Dose: 100 mg Metoprolol Tartrate (Lopressor -) 25 mg PO BID [facility] Last Admin: 09/20/16 22:10 Dose: Not Given Nitroglycerin (Nitro-Dur Patch -) 0.2 mg TD DAILY [facility] Last Admin: 09/20/16 12:49 Dose: 0.2 mg Ondansetron HCl (Zofran Injection) 4 mg IVPUSH Q6H PRN PRN Reason: NAUSEA AND/OR VOMITING Last Admin: 09/19/16 14:10 Dose: 4 mg Pantoprazole Sodium (Protonix -) 40 mg PO DAILY [facility] Last Admin: 09/20/16 10:29 Dose: 40 mg Senna (Senna -) 1 tab PO HS [facility] Last Admin: 09/20/16 22:09 Dose: 1 tab Warfarin Sodium (Coumadin -) 5 mg PO DAILY@1800 [facility] Last Admin: 09/20/16 18:21 Dose: 5 mg - Objective Vital Signs: Vital Signs Temperature 98.0 F 09/21/16 06:00 Pulse Rate 61 09/21/16 06:00 Respiratory Rate 20 09/21/16 06:00 Blood Pressure 132/72 09/21/16 06:00 O2 Sat by Pulse Oximetry (%) 96 09/20/16 21:00 Constitutional: Yes: No Distress Eyes: Yes: WNL HENT: Yes: WNL Neck: Yes: WNL Cardiovascular: Yes: Regular Rate and Rhythm, Murmur Respiratory: Yes: WNL Edema: No Labs: CBC, BMP 09/18/16 05:35 09/18/16 05:35 INR, PTT INR 2.79 (0.82-1.09) H 09/21/16 08:05 Assessment/Plan a/p: 86 f hx dchf, htn, afib, dvts, hep b, sent from [facility] for n/v. n/v/d: -no obvious cardiac etiology -trop in borderline range with nl ck and flat trend. Prior similar trop levels in 2013 and 2014 so these elevations represent her baseline and not acs. -w/u per pmd/GI dchf: -stable, no vol overload -echo with nl lvef, no severe valve dz htn: -Given HCTZ yesterday -BP much improved -Would continue Norvasc at 10 ng decrease metoprolol to QD given shaka at night. afib: -rate controlled on bb -cont ac per inr : -moderate on echo here, cont routine outpt monitoring
[2016-09-21] MEDS: LACTOBACILLUS ACIDOPHILUS 1 EACH TAB (FP) PO SCH (11:05)
[2016-09-21] MEDS: LOSARTAN POTASSIUM 50 MG TABLET (FP) PO SCH (11:07)
[2016-09-21] MEDS: NITROGLYCERIN 0.2 MG/HOUR TD PATCH TD SCH (11:07)
[2016-09-21] MEDS: HYDROCHLOROTHIAZIDE 12.5 MG CAPSULE (FP) PO SCH (11:07)
[2016-09-21] MEDS: METOPROLOL SUCCINATE 25 MG TAB.SR.24H (FP) PO SCH (11:08)
[2016-09-21] MEDS: PANTOPRAZOLE 40 MG TABLET (FP) PO SCH (11:08)
[2016-09-21] MEDS: amLODIPine BESYLATE 10 MG TABLET (FP) PO SCH (11:08)
[2016-09-21] MEDS ORDERED: NITROGLYCERIN 0.2 MG/HOUR TD PATCH TD SCH (11:15)
--- NOTE | 2016-09-21 11:40 | PN ---
Progress Note (short form) - Note Progress Note: appreciate cardio follow up episode of shaka on tele over niught HR 30 asymptomatic ?? now decreased to once daily BP improved control c/o of constipation no BM in "days" tolerating PO well for last 2 days Vital Signs Period Temp Pulse Resp BP Sys/Menjivar Pulse Ox Last 24 Hr 97.9 F-98.8 F 54-70 18-20 132-157/61-77 96 neck supple heart irreg [id number] CLEAR BILAT ABD SOFT6 NON tender EXT no edema CBC, BMP 09/18/16 05:35 09/18/16 05:35 INR, PTT INR 2.79 (0.82-1.09) H 09/21/16 08:05 Active Medications Amlodipine Besylate (Norvasc -) 10 mg PO DAILY [facility] Last Admin: 09/21/16 11:08 Dose: 10 mg Docusate Sodium (Colace -) 200 mg PO BID [facility] Hydrochlorothiazide (Hctz -) 12.5 mg PO DAILY [facility] Last Admin: 09/21/16 11:07 Dose: 12.5 mg Lactobacillus Acidophilus (Bacid -) 1 tab PO DAILY [facility] Last Admin: 09/21/16 11:05 Dose: 1 tab Losartan Potassium (Cozaar -) 100 mg PO DAILY [facility] Last Admin: 09/21/16 11:07 Dose: 100 mg Metoprolol Succinate (Toprol Xl -) 25 mg PO DAILY [facility] Last Admin: 09/21/16 11:08 Dose: 25 mg Nitroglycerin (Nitro-Dur Patch -) 0.2 mg TD DAILY [facility] Ondansetron HCl (Zofran Injection) 4 mg IVPUSH Q6H PRN PRN Reason: NAUSEA AND/OR VOMITING Last Admin: 09/19/16 14:10 Dose: 4 mg Pantoprazole Sodium (Protonix -) 40 mg PO DAILY [facility] Last Admin: 09/21/16 11:08 Dose: 40 mg Polyethylene Glycol (Miralax (For Daily Use) -) 17 gm PO BID [facility] Senna (Senna -) 1 tab PO HS [facility] Last Admin: 09/20/16 22:09 Dose: 1 tab Warfarin Sodium (Coumadin -) 5 mg PO DAILY@1800 [facility] Stop: 09/24/16 23:59 Last Admin: 09/20/16 18:21 Dose: 5 mg Problem List - Problems (1) Hypertension Code(s): I10 - ESSENTIAL (PRIMARY) HYPERTENSION (2) Nausea Code(s): R11.0 - NAUSEA (3) Atrial fibrillation Code(s): I48.91 - UNSPECIFIED ATRIAL FIBRILLATION (4) Gastroenteritis Code(s): K52.9 - NONINFECTIVE GASTROENTERITIS AND COLITIS, UNSPECIFIED (5) Dizziness Code(s): R42 - DIZZINESS AND GIDDINESS (6) Fatigue Code(s): R53.83 - OTHER FATIGUE
[2016-09-21] MEDS: POLYETHYLENE GLYCOL 3350 119 GM BTL PO SCH ×2 (12:24→21:20)
[2016-09-21] MEDS: DOCUSATE SODIUM 100 MG CAPSULE (FP) PO SCH ×2 (12:24→21:16)
[2016-09-21] MEDS: WARFARIN NA 5 MG TABLET (UD) PO SCH (18:00)
[2016-09-21] MEDS: SENNOSIDES 8.6MG TABLET (FP) PO SCH (21:16)
[2016-09-22 07:38] LABS: INR 3.37 (0.82-1.09)
--- NOTE | 2016-09-22 08:22 | PN ---
Progress Note, Physician - Current Medication List Current Medications: Active Medications Amlodipine Besylate (Norvasc -) 10 mg PO DAILY [facility] Last Admin: 09/21/16 11:08 Dose: 10 mg Docusate Sodium (Colace -) 200 mg PO BID [facility] Last Admin: 09/21/16 21:16 Dose: 200 mg Hydrochlorothiazide (Hctz -) 12.5 mg PO DAILY [facility] Last Admin: 09/21/16 11:07 Dose: 12.5 mg Lactobacillus Acidophilus (Bacid -) 1 tab PO DAILY [facility] Last Admin: 09/21/16 11:05 Dose: 1 tab Losartan Potassium (Cozaar -) 100 mg PO DAILY [facility] Last Admin: 09/21/16 11:07 Dose: 100 mg Metoprolol Succinate (Toprol Xl -) 25 mg PO DAILY [facility] Last Admin: 09/21/16 11:08 Dose: 25 mg Nitroglycerin (Nitro-Dur Patch -) 0.2 mg TD DAILY [facility] Last Admin: 09/21/16 12:23 Dose: 0.2 mg Ondansetron HCl (Zofran Injection) 4 mg IVPUSH Q6H PRN PRN Reason: NAUSEA AND/OR VOMITING Last Admin: 09/19/16 14:10 Dose: 4 mg Pantoprazole Sodium (Protonix -) 40 mg PO DAILY [facility] Last Admin: 09/21/16 11:08 Dose: 40 mg Polyethylene Glycol (Miralax (For Daily Use) -) 17 gm PO BID [facility] Last Admin: 09/21/16 21:20 Dose: Not Given Senna (Senna -) 1 tab PO HS [facility] Last Admin: 09/21/16 21:16 Dose: 1 tab Warfarin Sodium (Coumadin -) 5 mg PO DAILY@1800 [facility] Stop: 09/24/16 23:59 Last Admin: 09/21/16 18:00 Dose: 5 mg - Objective Vital Signs: Vital Signs Temperature 97.6 F 09/22/16 06:00 Pulse Rate 75 09/22/16 06:00 Respiratory Rate 20 09/22/16 06:00 Blood Pressure 156/80 09/22/16 06:00 O2 Sat by Pulse Oximetry (%) 95 09/21/16 21:00 Labs: CBC, BMP 09/18/16 05:35 09/18/16 05:35 INR, PTT INR 3.37 (0.82-1.09) H 09/22/16 05:38 Assessment/Plan ecg 09/17/16: afib, 70, nl qtc, lvh, no ischemic changes cxr: no chf echo 09/2014: nl lv/rv, mod lae, mild ar/mr echo 09/2016: nl lv/rv, mild lae, mild mr, mild pulm htn, mod tele: rate controlled afib a/p: 86 f hx dchf, htn, afib, dvts, hep b, [facility]. n/v/d: -no obvious cardiac etiology -trop in borderline range with nl ck and flat trend. Prior similar trop levels in 2013 and 2014 so these elevations represent her baseline and not acs. -no further w/u necessary per GI input dchf: -stable, no vol overload -wt down 201 to 196 on its own here -echo with nl lvef, no severe valve dz htn: -BP elevated here: losartan added, amlodipine added then incr'd to 10mg, HCTZ given 09/21 -she will not adhere with thiazide at home, given repeated objections to any diuretic therapy (due to her severe urinary frequency) -change losartan to diovan (greater potency) -would add low dose hydralazine next (10-20mg bid) if necessary -observe trend: would rec tolerating sbp <160 with occasional 160s here, given pt risks of med non-compliance at home afib: -rate controlled on bb -cont ac per inr : -moderate on echo here, cont routine outpt monitoring
[2016-09-22] MEDS ORDERED: PT OWN MED DRAWER 7, Y5N ONE (09:04)
[2016-09-22] MEDS: PANTOPRAZOLE 40 MG TABLET (FP) PO SCH (09:20)
[2016-09-22] MEDS: LACTOBACILLUS ACIDOPHILUS 1 EACH TAB (FP) PO SCH (09:20)
[2016-09-22] MEDS: METOPROLOL SUCCINATE 25 MG TAB.SR.24H (FP) PO SCH (09:20)
[2016-09-22] MEDS: amLODIPine BESYLATE 10 MG TABLET (FP) PO SCH (09:21)
[2016-09-22] MEDS: DOCUSATE SODIUM 100 MG CAPSULE (FP) PO SCH (09:21)
[2016-09-22] MEDS: POLYETHYLENE GLYCOL 3350 119 GM BTL PO SCH (09:23)
[2016-09-22] MEDS ORDERED: VALSARTAN 160 MG TABLET (UD) PO SCH (10:00)
--- NOTE | 2016-09-22 11:07 | PN ---
Problem List - Problems (1) Hypertension Code(s): I10 - ESSENTIAL (PRIMARY) HYPERTENSION (2) Nausea Code(s): R11.0 - NAUSEA (3) Atrial fibrillation Code(s): I48.91 - UNSPECIFIED ATRIAL FIBRILLATION (4) Gastroenteritis Code(s): K52.9 - NONINFECTIVE GASTROENTERITIS AND COLITIS, UNSPECIFIED (5) Dizziness Code(s): R42 - DIZZINESS AND GIDDINESS (6) Fatigue Code(s): R53.83 - OTHER FATIGUE
--- NOTE | 2016-09-22 11:29 | DS ---
Physical Examination Vital Signs: Vital Signs Temperature 97.6 F 09/22/16 06:00 Pulse Rate 75 09/22/16 06:00 Respiratory Rate 20 09/22/16 06:00 Blood Pressure 156/80 09/22/16 06:00 O2 Sat by Pulse Oximetry (%) 95 09/21/16 21:00 Constitutional: Yes: Well Nourished, No Distress, Calm Eyes: Yes: WNL, Conjunctiva Clear, EOM Intact HENT: Yes: WNL, Atraumatic, Normocephalic Neck: Yes: Supple, Trachea Midline Cardiovascular: Yes: Pulse Irregular Respiratory: Yes: WNL, CTA Bilaterally Gastrointestinal: Yes: Normal Bowel Sounds, Soft, Abdomen, Obese Renal/: Yes: WNL Breast(s): Yes: WNL Musculoskeletal: Yes: WNL Extremities: Yes: WNL Edema: LLE: Trace, RLE: Trace Peripheral Pulses WNL: Yes Integumentary: Yes: WNL Neurological: Yes: WNL, Alert, Oriented ...Motor Strength: WNL Psychiatric: Yes: Alert, Oriented Labs: CBC, BMP 09/18/16 05:35 09/18/16 05:35 Discharge Summary Reason For Visit: NAUSEA Current Active Problems Gastroenteritis (Acute) Nausea (Acute) atrial fibrillation Aortic stenosis dehydration htn -- uncontrolled Medication changes avoid diuretics - as per Cardio will not comply Cholelithiasis recommed low fat diet Patient will be discharged home today assited living documentation completed Condition: Stable - Instructions Referrals: Joelle Moeller [Primary Care Provider] - Vik Lenz MD [Staff Physician] - 2 Weeks - Home Medications Comprehensive Discharge Medication List: Ambulatory Orders Warfarin Sodium [Coumadin] 5 mg PO HS 04/07/14 Latanoprost 0.005% Eye Drops [Xalatan 0.005% Eye Drops -] 0 drop ASDIR 09/17/16 Amlodipine Besylate [Norvasc -] 10 mg PO DAILY #30 tablet 09/22/16 Lactobacillus Acidophilus [Bacid -] 1 tab PO DAILY tab 09/22/16 Valsartan [Diovan] 320 mg PO DAILY #30 tablet 09/22/16 Warfarin Na [Coumadin -] 5 mg PO DAILY@1800 tablet 09/22/16
[2016-09-22 12:31] VITALS: BP 137/69; PULSE 69; TEMP 97.3
== END 2016-09-22 13:13 ==
LOC: JER 13:08 → JERBED 18:30 → J4S 21:17
PROVIDERS: ADMIT Family Medicine; ATTEND Family Medicine
PROC: 3E033GC Introduction of Other Therapeutic Substance into Peripheral Vein, Percutaneous Approach (ICD-10-PCS; principal; 2016-09-17)
PROC: 3E0337Z Introduction of Electrolytic and Water Balance Substance into Peripheral Vein, Percutaneous Approach (ICD-10-PCS; 2016-09-17)
DX: K52.9 Noninfective gastroenteritis and colitis, unspecified (principal); R11.0 Nausea; I48.91 Unspecified atrial fibrillation; R42 Dizziness and giddiness; R53.83 Other fatigue; I10 Essential (primary) hypertension; I50.30 Unspecified diastolic (congestive) heart failure; Z79.01 Long term (current) use of anticoagulants; E86.0 Dehydration; I35.0 Nonrheumatic aortic (valve) stenosis; K80.20 Calculus of gallbladder without cholecystitis without obstruction; Z88.6 Allergy status to analgesic agent; Z86.2 Personal history of diseases of the blood and blood-forming organs and certain disorders involving the immune mechanism; Z91.041 Radiographic dye allergy status
CPT/HCPCS: 36415; 70450-TC; 71010-TC; 71250-TC; 74176-TC; 80048; 80053; 81003; 81015; 82550; 82553; 83690; 83735; 84484; 85025; 85610; 93005; 93010; 93306-TC; 97116-GP; 97161; 99284-25; G0378

== ENCOUNTER 2016-10-27 23:24 | Inpatient (IN) | payer OTHER, BC ==
[2016-10-28] MEDS ORDERED: ONDANSETRON 4 MG/2 ML VIAL IVPUSH ONE (00:02)
[2016-10-28] MEDS ORDERED: ONDANSETRON 4 MG/2 ML VIAL ONE (00:12)
--- NOTE | 2016-10-28 00:17 | PDOC ---
History of Present Illness - General Chief Complaint: Nausea Stated Complaint: Nausea Time Seen by Provider: 10/27/16 23:32 - History of Present Illness Initial Comments: 86 year old female, with PMH of Afib, CHF, hypertension, anemia, and gallstones , who presents to the emergency department via EMS from [address] [place] [address] for nausea and abdominal pain x 3 hours. She denies any strange food ingestion or recent sick symptoms/ sick contacts but reports this burning deep abdominal pain that started suddenly along with some belching and nausea along with a feeling of impending . Denies radiation of pain, shortness of breath, diarrhea, cough, explicit chest pain, or other sick symptoms. She was seen for this issue many times in the past without any GI pathology elucidated despite extensive imaging. Her PCP is Dr. Joelle Moeller but there are some notes from Dr. Carlisle and her pulp press tender is Dr. Aranda. Past History - Past Medical History Allergies/Adverse Reactions: Allergies Allergy/AdvReac Type Severity Reaction Status Date / Time Iodinated Contrast Media - Allergy Unknown Hives Verified 10/27/16 23:41 Oral and morphine Allergy Nausea for Verified 10/27/16 23:41 long periods IV Contrast dyes Allergy Hives Uncoded 10/27/16 23:41 Home Medications: Ambulatory Orders Warfarin Sodium [Coumadin] 5 mg PO HS 04/07/14 Latanoprost 0.005% Eye Drops [Xalatan 0.005% Eye Drops -] 0 drop ASDIR 09/17/16 Amlodipine Besylate [Norvasc -] 10 mg PO DAILY #30 tablet 09/22/16 Lactobacillus Acidophilus [Bacid -] 1 tab PO DAILY tab 09/22/16 Valsartan [Diovan] 320 mg PO DAILY #30 tablet 09/22/16 Warfarin Na [Coumadin -] 5 mg PO DAILY@1800 tablet 09/22/16 Anemia: Yes Cardiac Disorders: Yes (A FIB) CHF: Yes HTN: Yes Thyroid Disease: Yes (GOITER) - Surgical History Appendectomy: Yes Cholecystectomy: Yes - Immunization History Td Vaccination: Yes Immunization Up to Date: (UNKNOWN) - Psycho/Social/Smoking Cessation Hx Anxiety: No Suicidal Ideation: No Smoking Status: No Smoking History: Never smoked Have you smoked in the past 12 months: No Number of Cigarettes Smoked Daily: 0 Information on smoking cessation initiated: No Hx Alcohol Use: No Drug/Substance Use Hx: No Substance Use Type: None Hx Substance Use Treatment: No *Physical Exam - Vital Signs Last Vital Signs Temp Pulse Resp BP Pulse Ox 98.1 F 81 16 170/78 95 10/27/16 23:41 10/27/16 23:41 10/27/16 23:41 10/27/16 23:41 10/27/16 23:41 ED Treatment Course - LABORATORY CBC & Chemistry Diagram: 10/28/16 00:56 10/28/16 00:56 Medical Decision Making - Medical Decision Making 86 year old female presenting with nausea, belching, and abdominal pain since 9 :00PM. She has history of CHF but no MIs in the past. On eliquist for chronic Afib. Given her risk factors of HTN, age, story (deep boring pain with feeling of impending ) and cardiac history will obtian EKG, troponin and treat her symptomatically. At 1:58 AM her troponin returned at .15 without EKG changes and an INR of 2.9. Will admit patient for HEART pathway rule out ACS (most likely NSTEMI Type II). 10/28/16 01:56 10/28/16 02:[address] Carlisle and we will admit her as an observation for a troponin rule out via the heart pathway. Will give reglan and maalox for GI complaints. *DC/Admit/Observation/Transfer Diagnosis at time of Disposition: Elevated troponin I level Diagnosis at time of Disposition: (Ruled Out): NSTEMI, initial episode of care - Discharge Dispostion Condition at time of disposition: Stable Admit: Yes - Attestations Physician Attestion: 10/28/16 02:55 I, Dr. Moira Singh, attest that this document has been prepared under my direction and personally reviewed by me in its entirety. I further attest, that it accurately reflects all work, treatment, procedures and medical decision -making performed by me.
[2016-10-28 01:06] LABS: MCH 28.9 pg (25.7-33.7); MCHC 33.1 g/dl (32.0-36.0); MEAN CELL VOLUME 87.4 fl (80-96); MEAN PLT VOLUME 8.8 fl (7.5-11.1); PLATELET COUNT 233 K/MM3 (134-434); WHITE BLOOD COUNT 10.7 K/mm3 (4.0-10.0)
[2016-10-28 01:19] LABS: INR 2.8 (0.82-1.09); PROTHROMBIN TIME (PATIENT) 31.4 SEC (9.98-11.88)
[2016-10-28 01:44] LABS: ALBUMIN 3.7 g/dl (3.4-5.0); ANION GAP 12 (8-16); BILIRUBIN,TOTAL 0.8 mg/dL (0.2-1.0); CALCIUM 8.7 mg/dL (8.5-10.1); CO2 24 mmol/L (21-32); CREATININE 0.9 mg/dL (0.55-1.02); GLUCOSE,RANDOM 138 mg/dL (74-106); SGOT/AST 24 U/L (15-37); SGPT/ALT 23 U/L (12-78); TOT PROT 7.3 g/dl (6.4-8.2)
[2016-10-28 01:45] LABS: ALK PHOS 72 U/L (45-117)
[2016-10-28 01:46] LABS: AMYLASE 48 U/L (25-115)
[2016-10-28] MEDS ORDERED: MAG HYDROX/AL HYDROX/SIMETH 30 ML UNIT-DOSE CUP PO ONE (02:15)
[2016-10-28] MEDS ORDERED: METOCLOPRAMIDE HCL INJECTION 10 MG/2 ML VIAL IVPUSH ONE (02:16)
[2016-10-28] MEDS ORDERED: METOCLOPRAMIDE HCL INJECTION 10 MG/2 ML VIAL ONE (02:17)
[2016-10-28] MEDS ORDERED: MAG HYDROX/AL HYDROX/SIMETH 30 ML UNIT-DOSE CUP ONE (02:18)
[2016-10-28] MEDS ORDERED: ASPIRIN 81 MG CHEWABLE TABLETS PO ONE ×2 (02:36→23:30)
[2016-10-28] MEDS ORDERED: ASPIRIN 81 MG CHEWABLE TABLETS ONE (02:48)
[2016-10-28 08:14] VITALS: BMI 32.6
[2016-10-28] MEDS ORDERED: ONDANSETRON 4 MG/2 ML VIAL IVPB PRN (09:29)
[2016-10-28] MEDS ORDERED: DEXTROSE 5%-0.45% SALINE 1,000 ML IV SCH (09:30)
[2016-10-28 09:44] LABS: TROPONIN I 1.15 ng/ml (0.00-0.05)
[2016-10-28] MEDS ORDERED: HEPARIN NA (PORCINE) 5,000 UNITS/ML 1ML VIAL SQ SCH (10:00)
[2016-10-28] MEDS: METOCLOPRAMIDE HCL INJECTION 10 MG/2 ML VIAL IVPB SCH ×2 (11:00→17:22)
--- NOTE | 2016-10-28 11:40 | CON.CARD ---
Cardiology Consult (text) - Consultation Consultation Note: cc: elevated troponins hpi: 86 f hx dchf, htn, hl, afib on coumadin, h/o TIA per Dr. 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 For years has intermittent episodes of n/v/lack of appetite. Now with recurrence of nausea. Unable to gather further history, patient states she cannot remember her recent symptoms. Per Dr. Floyd's note. + cid at baseline (walking from one room to the next). May be slowly progressive. No cp, palps, dizzy, loc, pnd, orthopnea, le edema. no f/c/s, cough, congestion, rashes, visual disturbances, headache. Sees dr floyd for cardio. pmh: per hpi psh: appendectomy, hysterectomy social: no tob fam: mother of CHF 68; no CAD ros: per hpi; meds: Ambulatory Orders Warfarin Sodium [Coumadin] 5 mg PO HS 04/07/14 Latanoprost 0.005% Eye Drops [Xalatan 0.005% Eye Drops -] 0 drop ASDIR 09/17/16 Amlodipine Besylate [Norvasc -] 10 mg PO DAILY #30 tablet 09/22/16 Lactobacillus Acidophilus [Bacid -] 1 tab PO DAILY tab 09/22/16 Valsartan [Diovan] 320 mg PO DAILY #30 tablet 09/22/16 Warfarin Na [Coumadin -] 5 mg PO DAILY@1800 tablet 09/22/16 Current Medications Heparin Sodium (Porcine) (Heparin -) 5,000 unit SQ BID AMALIA Dextrose/Sodium Chloride (D5-1/2ns -) 1,000 mls @ 83 mls/hr IV ASDIR AMALIA Metoclopramide HCl (Reglan Injection -) 10 mg IVPB Q8H-IV AMALIA Ondansetron HCl (Zofran Injection) 4 mg IVPB Q6H PRN PRN Reason: NAUSEA Vital Signs - 24 hr 10/27/16 10/28/16 10/28/16 23:41 02:55 04:15 Temperature 98.1 F 98 F 98.1 F Pulse Rate 81 98 H Pulse Rate [ 82 Apical] Respiratory 16 16 16 Rate Blood Pressure 170/78 149/72 Blood Pressure 168/82 [Right] O2 Sat by Pulse 95 96 100 Oximetry (%) Intake & Output 10/26/16 10/27/16 10/28/16 10/29/16 07:59 07:59 07:59 07:59 Weight 202 lb 4 oz nad calm jvd?, neck supple irreg s1s2 no 2/6 murmur at sternal border bibasilar crackles, nl eff no le e/c/c abd nt nd pos bs no jaundice diaphoresis pos dp pt no carotid bruits CBC, BMP 10/28/16 00:56 10/28/16 00:56 Laboratory Tests 09/18/16 10/28/16 10/28/16 05:35 00:56 00:56 INR Total Bilirubin 0.8 AST 24 ALT 23 Alkaline Phosphatase 72 D Creatine Kinase 157 Troponin I 0.10 H Albumin 3.7 Total Amylase 48 Lipase 192 10/28/16 10/28/16 00:56 08:35 INR 2.80 H Total Bilirubin AST ALT Alkaline Phosphatase Creatine Kinase Troponin I 1.15 H* Albumin Total Amylase Lipase ecg afib, lad, lvh with qrs widening. non-specific anterolateral twi. similar to priors tele: afib, rate controlled. cxr: wnl echo 08/2016: nl lv/rv, 1+ lae, mod (3.3 m/s, 44/27), 1+ mr, 1+ phtn MIBI 03/04 (lala): no STs; no isch (variable breast); nl EF; no LVE/TID a/p: 86 f hx dchf, htn, hl, afib on coumadin, h/o TIA per Dr. 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 nstemi - Prior trop levels have been in intermediate range and not thought to represent acs. However, now with higher spike, would treat as ACS. Already anticoagulated with therapeutic INR. If head CT negative (patient unable to remember recent events? does not appear to have memory issues based on recent notes) --> transition to heparin drip/lovenox once INR subtherapeutic. Add asa , plavix, statin. Trend cardiac enzymes to peak. - ? nausea unlikely to be anginal equivalent as is longstanding, but cid may be. - MB remains wnl ddx of troponin elevation --> aortic stenosis (if it is more severe than measured on recent echo), CVA, PE (pt with h/o hypercoaguable state) , myopericarditis. Would get CTA. ESR. CRP - repeat echo n/v/d: - chronic mgm't per pmd - while getting chest CTA would evaluate abdominal arteries as well. ? mesenteric ischemia. mod /dchf: -recently initiated on torsemide 20 mg prn as outpatient. currently holding while with nausea/clear liquids diet. stable, no vol overload. -currently on IVF. Would decrease rate. - ? mod on echo should not be causing sx's. Repeat echo - daily standing weights, bmp, I/O's. htn: -cont home meds: benicar 40, toprol 25. Also on nitrol patch, but will hold off for now to avoid hypotension. afib: -rate controlled on bb -holding coumadin as above h/o TIA - head ct to rule out cva, - AC, statin chronic cid - appears to be at baseline? - r/o PE as mentioned. ? anginal equivalent. - does not appear to have pulmonary edema, con't to monitor - ? diagnosis of copd, will defer to pmd.
--- NOTE | 2016-10-28 11:46 | HP ---
Admitting History and Physical - Primary Care Physician PCP: Betty Carlisle I - Admission Chief Complaint: nausea and vomiting History of Present Illness: 86F PMHx of Afib on coumadin, diastolic CHF, hypertension,, who presented to the emergency department via EMS from [address] [place] [address] for nausea and abdominal pain for a couple hours prior to presentation. Difficulty answering some questions due to physical condition. She stated that she has some burning chest and abdominal pain. She denies diaphoresis or radiation of the pain to her arm or jaw. She denies visual changes or any neurological symptoms. She states the pain was dull in nature. When the abdominal pain started she started having belching and felt worried. Denies sick contacts or recent travel. Denies radiation of pain, shortness of breath, diarrhea, cough, explicit chest pain. Patient was given aspirin in the ED. second troponin increased to 1.15. Patient is already anticoagulated on coumadin. 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 Cardiovascular: Yes: AFIB (on coumadin), CHF (diastolic), HTN, Other (Moderate aortic stenosis) Gastrointestinal: Yes: Other (hx hepatitis A / reports similar episodes about every 2 months most subside on their own -- takes Zofran PRN as out patient) Heme/Onc: Yes: Anemia Endocrine: Yes: Ankur's Disease, Hypothyroidism, Other (Goiter) - Past Surgical History Past Surgical History: Yes: Appendectomy, Hysterectomy Additional Past Surgical History: Knee surgery - Smoking History Smoking history: Never smoked Have you smoked in the past 12 months: No Aproximately how many cigarettes per day: 0 - Alcohol/Substance Use Hx Alcohol Use: No History of Substance Use: reports: None - Social History ADL: Support Services History of Recent Travel: No Home Medications - Allergies Allergies/Adverse Reactions: Allergies Allergy/AdvReac Type Severity Reaction Status Date / Time Iodinated Contrast Media - Allergy Unknown Hives Verified 10/27/16 23:41 Oral and morphine Allergy Nausea for Verified 10/27/16 23:41 long periods IV Contrast dyes Allergy Hives Uncoded 10/27/16 23:41 - Home Medications Home Medications: Ambulatory Orders Latanoprost 0.005% Eye Drops [Xalatan 0.005% Eye Drops -] 0 drop ASDIR 09/17/16 Amlodipine Besylate [Norvasc -] 10 mg PO DAILY #30 tablet 09/22/16 Lactobacillus Acidophilus [Bacid -] 1 tab PO DAILY tab 09/22/16 Valsartan [Diovan] 320 mg PO DAILY #30 tablet 09/22/16 Warfarin Na [Coumadin -] 5 mg PO DAILY@1800 tablet 09/22/16 Family Disease History - Family Disease History Family Disease History: Heart Disease: Sister (1 sister of heart dz; another sister of Alzheimer's) Review of Systems - Review of Systems Constitutional: reports: Malaise Eyes: reports: No Symptoms HENT: reports: No Symptoms Neck: reports: No Symptoms Cardiovascular: reports: Chest Pain, Shortness of Breath Respiratory: denies: Cough Gastrointestinal: reports: Abdominal Pain, Nausea, Vomiting Genitourinary: reports: No Symptoms Musculoskeletal: reports: No Symptoms Integumentary: reports: No Symptoms Neurological: reports: No Symptoms Endocrine: reports: No Symptoms Hematology/Lymphatic: reports: No Symptoms Psychiatric: reports: No Symptoms Physical Examination Vital Signs: Vital Signs Temperature 98.1 F 10/28/16 04:15 Pulse Rate 82 10/28/16 04:15 Respiratory Rate 16 10/28/16 04:15 Blood Pressure 168/82 10/28/16 04:15 O2 Sat by Pulse Oximetry (%) 100 10/28/16 04:15 Constitutional: Yes: No Distress Eyes: Yes: Conjunctiva Clear HENT: Yes: Atraumatic, Normocephalic Cardiovascular: Yes: Pulse Irregular, Murmur (3/6 systolic murmur best heard at RUSB), S1, S2 Respiratory: Yes: CTA Bilaterally Gastrointestinal: Yes: Soft Edema: Yes Edema: LLE: 1+, RLE: 1+ Neurological: Yes: Alert, Oriented ...Motor Strength: WNL Imaging - Results Chest X-ray: Report Reviewed, Image Reviewed Assessment/Plan 86F with multiple medical probelsm presents to the ED with abdominal pain found to have elevated troponin. Problem list: NSTEMI possible exacerbation of heart failure secondary to aortic stenosis diastolic CHF Hepatitis A Anemia Addisons Disease Hypothyroidism/Goiter HTN Plan: Admit to Telemetry Trend troponins for peak Send CK/MB patient is already anticoagulated-continue coumadin EKG PRN chest pain restart Home BP meds Check lipid panel Check HbA1c Give statin Will consider aspirin and plavix pending cardiology recommendations Will do Head CT to rule out CVA as this may be a cause for elevated troponin- patient was tired appearing at the beginning of interview now is more awake consider GI consult if nausea and vomiting worsens Cardiology consult appreciated may need a stress test Echo recently done last month Case discussed with attending and medical team. Full H&P to follow by medical team Visit type - Emergency Visit Emergency Visit: Yes ED Registration Date: 10/28/16 Care time: The patient presented to the Emergency Department on the above date and was hospitalized for further evaluation of their emergent condition. - New Patient This patient is new to me today: Yes Date on this admission: 10/28/16 - Critical Care Critical Care patient: No
[2016-10-28 15:52] LABS: CHOLESTEROL 183 mg/dL (50-200); LDL CHOLESTEROL (ONLY SJRH) 110 mg/dL (5-100)
--- NOTE | 2016-10-28 16:19 | HP ---
CHIEF COMPLAINT: Nausea PCP: Dr. Carlisle HISTORY OF PRESENT ILLNESS: Patient is an 86 year old female with a PMHx of Diastolic CHF, HTN, lyme disease , DVT, atrial fibrilation on Coumadin, hypothyriodism, and glaucoma that presented overnight to the ED for severe nausea that woke her from sleep. The patient does not note any associated pain. Patient normally complains of indigestion and nausea at baseline but states that her current symptoms are more intense and makes her feel "like she is going to ." Patient reports a dull constant headache and painful swelling in the lower extremities. Otherwise , patient denies any chest pain, SOB, fever, chills, arthralgias, LOC, trauma, sick contacts or recent travel. ER course was notable for: (1) Vital signs in ED: 98.1F, HR 81, BP 170/78, RR 16, 95 (2) ASA 162mg PO, Metoclopramide 10mg IV push, Zofran 4mg IV push, Mylanta 30ml PO (3) EKG, CXR Recent Travel: denies PAST MEDICAL/Surgical HISTORY: - hysterectomy at age 48 - 1 knee and 2 hip replacments at age 64 - lyme disease - HTN - diastolic HF - Glaucoma Social History: Smoking: Denies Alcohol: Denies Drugs: Denies - patient eats a balanced diet at assisted living facility, has a minimum level of exercise, drinks one cup of caffeine, no history of prolonged smoking, and patient had a colonoscopy previously at an unknown date. Family History: -mother and father had diastolic heart failure -father of lung cancer -both sisters diagnosed with Alzheimer Allergies Iodinated Contrast Media - Oral and Allergy (Unknown, Verified 10/27/16 23:41) Hives morphine Allergy (Verified 10/27/16 23:41) Nausea for long periods IV Contrast dyes Allergy (Uncoded 10/27/16 23:41) Hives HOME MEDICATIONS: Home Medications Medication Instructions Recorded Latanoprost 0.005% Eye Drops 0 drop ASDIR 09/17/16 [Xalatan 0.005% Eye Drops -] Amlodipine Besylate [Norvasc -] 10 mg PO DAILY #30 tablet 09/22/16 Lactobacillus Acidophilus [Bacid -] 1 tab PO DAILY tab 09/22/16 Valsartan [Diovan] 320 mg PO DAILY #30 tablet 09/22/16 Warfarin Na [Coumadin -] 5 mg PO DAILY@1800 tablet 09/22/16 Metoprolol Succinate [Toprol Xl -] 25 mg PO DAILY 10/28/16 Nitroglycerin Patch [Nitro-Dur] 0.2 mg TD DAILY 10/28/16 Torsemide [Demadex] 20 mg PO BID 10/28/16 REVIEW OF SYSTEMS CONSTITUTIONAL: malaise Absent: fever, chills, diaphoresis, generalized weakness, loss of appetite, weight change HEENT: rhinorrhea Absent: nasal congestion, throat pain, throat swelling, difficulty swallowing, mouth swelling, ear pain, eye pain, visual changes CARDIOVASCULAR: peripheral edema Absent: chest pain, syncope, palpitations, irregular heart rate, lightheadedness , RESPIRATORY: Absent: cough, shortness of breath, dyspnea with exertion, orthopnea, wheezing, stridor, hemoptysis GASTROINTESTINAL:nausea Absent: abdominal pain, abdominal distension, , vomiting, diarrhea, constipation , melena, hematochezia GENITOURINARY: hesitancy Absent: dysuria, frequency, urgency, hematuria, flank pain, genital pain MUSCULOSKELETAL: Absent: myalgia, arthralgia, joint swelling, back pain, neck pain SKIN: Absent: rash, itching, pallor HEMATOLOGIC/IMMUNOLOGIC: Absent: easy bleeding, easy bruising, lymphadenopathy, frequent infections ENDOCRINE: Absent: unexplained weight gain, unexplained weight loss, heat intolerance, cold intolerance NEUROLOGIC: headache Absent: , focal weakness or paresthesias, dizziness, unsteady gait, seizure, mental status changes, bladder or bowel incontinence PSYCHIATRIC: Absent: anxiety, depression, suicidal or homicidal ideation, hallucinations. PHYSICAL EXAMINATION Vital Signs - 24 hr 10/28/16 10/28/16 10/28/16 04:15 09:00 09:30 Temperature 98.1 F 98.4 F Pulse Rate 89 Pulse Rate [ 82 Apical] Respiratory 16 16 Rate Blood Pressure 147/65 Blood Pressure 168/82 [Right] O2 Sat by Pulse 100 100 Oximetry (%) 10/28/16 10/28/16 15:00 15:17 Temperature 99.4 F 98 F Pulse Rate 71 69 Pulse Rate [ Apical] Respiratory 18 18 Rate Blood Pressure 130/66 129/74 Blood Pressure [Right] O2 Sat by Pulse Oximetry (%) GENERAL: Awake, alert, and fully oriented, in no acute distress. HEAD: Normal with no signs of trauma. EYES: Pupils equal, round and reactive to light, extraocular movements intact, sclera anicteric, conjunctiva clear. No lid lag. EARS, NOSE, THROAT: Ears normal, nares patent, oropharynx clear without exudates. Moist mucous membranes. NECK: Normal range of motion, supple without lymphadenopathy, JVD, or masses. LUNGS: Breath sounds equal, clear to auscultation bilaterally. No wheezes, and no crackles. No accessory muscle use. HEART: Regular rate and rhythm, normal S1 and soft S2 with 3/6 systolic murmur best heard right upper sternal border, no rub or gallop. ABDOMEN: Soft, nontender on distracted exam, not distended, normoactive bowel sounds, no guarding, no rebound, no masses. No hepatomegaly or splenomegaly. MUSCULOSKELETAL: Normal range of motion at all joints. No bony deformities or tenderness. No CVA tenderness. UPPER EXTREMITIES: 2+ pulses, warm, well-perfused. No cyanosis. No clubbing. No peripheral edema. LOWER EXTREMITIES: 2+ pulses, warm, well-perfused. No calf tenderness. 1+ pitting edema. NEUROLOGICAL: Cranial nerves II-XII intact. Normal speech. Gait not observed. PSYCHIATRIC: Cooperative. Good eye contact. Appropriate mood and affect. SKIN: Warm, dry, normal turgor, no rashes or lesions noted, normal capillary refill. Laboratory Results - last 24 hr 10/28/16 10/28/16 08:35 14:30 Hemoglobin A1c % 6.1 H Creatine Kinase 166 CK-MB (CK-2) 3.157 Troponin I 1.15 H* ASSESSMENT/PLAN: Charlene is a 86 year old female with multiple past medical histories who presented to the ER after one day of nasuea and abdomenal pain. # NSTEMI - Head CT was ordered to rule out CVA - Patient was given in ER: ASA 162mg PO, Metoclopramide 10mg IV push, Zofran 4mg IV push, Mylanta 30ml PO - EKG, CXR in ED - Cardiology has been consulted with possible cathertization or stress test at a later date - Patient therapeutic on warfarin 5 mg PO (INR 2.8), atorvastatin 40 mg PO daily , SQ heparin BID 5000 units and D5 1/2 NS at 1000 mls @ 83 mls/hr. -Clopidogrel 75mg PO #Hypertension -Patient started on amlodipine 10 mg PO daily -Valsartan 20mg PO daily #Diastolic CHF -Torsemide 20mg PO BID #R/o DM - A1C ordered to rule out diabetes #R/o HLD - Lipid panel is ordered Visit type - Emergency Visit Emergency Visit: Yes ED Registration Date: 10/28/16 Care time: The patient presented to the Emergency Department on the above date and was hospitalized for further evaluation of their emergent condition. - New Patient This patient is new to me today: Yes Date on this admission: 10/29/16 - Critical Care Critical Care patient: No
[2016-10-28 16:35] LABS: TROPONIN I 2.27 ng/ml (0.00-0.05)
[2016-10-28] MEDS: amLODIPine BESYLATE 10 MG TABLET (FP) PO SCH (17:22)
[2016-10-28] MEDS: VALSARTAN 160 MG TABLET (UD) PO SCH (17:22)
[2016-10-28] MEDS ORDERED: WARFARIN NA 5 MG TABLET (UD) PO SCH (18:00)
[2016-10-28] MEDS: DEXTROSE 5%-0.45% SALINE 1,000 ML IV SCH (19:25)
--- NOTE | 2016-10-28 20:29 | PN ---
Teaching Attending Note Name of Resident: Too Hahn ATTENDING PHYSICIAN STATEMENT I saw and evaluated the patient. I reviewed the resident's note and discussed the case with the resident. I agree with the resident's findings and plan as documented. SUBJECTIVE: Patient presented with nausea and no other complains. OBJECTIVE: Vital Signs Temperature 98 F 10/28/16 15:17 Pulse Rate 69 10/28/16 15:17 Respiratory Rate 18 10/28/16 15:17 Blood Pressure 129/74 10/28/16 15:17 O2 Sat by Pulse Oximetry (%) 100 10/28/16 09:00 CBCD WBC 10.7 K/mm3 (4.0-10.0) H D 10/28/16 00:56 RBC 4.64 M/mm3 (3.60-5.2) 10/28/16 00:56 Hgb 13.4 GM/dL (10.7-15.3) 10/28/16 00:56 Hct 40.6 % (32.4-45.2) 10/28/16 00:56 MCV 87.4 fl (80-96) 10/28/16 00:56 MCHC 33.1 g/dl (32.0-36.0) 10/28/16 00:56 RDW 14.0 % (11.6-15.6) 10/28/16 00:56 Plt Count 233 K/MM3 (134-434) D 10/28/16 00:56 MPV 8.8 fl (7.5-11.1) 10/28/16 00:56 CMP Sodium 140 mmol/L (136-145) 10/28/16 00:56 Potassium 4.0 mmol/L (3.5-5.1) 10/28/16 00:56 Chloride 104 mmol/L (98-107) 10/28/16 00:56 Carbon Dioxide 24 mmol/L (21-32) 10/28/16 00:56 Anion Gap 12 (8-16) 10/28/16 00:56 BUN 22 mg/dL (7-18) H D 10/28/16 00:56 Creatinine 0.9 mg/dL (0.55-1.02) 10/28/16 00:56 Creat Clearance w eGFR 59.65 (>60) 10/28/16 00:56 Random Glucose 138 mg/dL (74-106) H D 10/28/16 00:56 Calcium 8.7 mg/dL (8.5-10.1) 10/28/16 00:56 Total Bilirubin 0.8 mg/dL (0.2-1.0) 10/28/16 00:56 AST 24 U/L (15-37) 10/28/16 00:56 ALT 23 U/L (12-78) 10/28/16 00:56 Alkaline Phosphatase 72 U/L (45-117) D 10/28/16 00:56 Total Protein 7.3 g/dl (6.4-8.2) 10/28/16 00:56 Albumin 3.7 g/dl (3.4-5.0) 10/28/16 00:56 CARDIAC ENZYMES Creatine Kinase 405 IU/L (26-192) H D 10/28/16 14:30 Troponin I 2.27 ng/ml (0.00-0.05) H* 10/28/16 14:30 CBCD WBC 10.7 K/mm3 (4.0-10.0) H D 10/28/16 00:56 RBC 4.64 M/mm3 (3.60-5.2) 10/28/16 00:56 Hgb 13.4 GM/dL (10.7-15.3) 10/28/16 00:56 Hct 40.6 % (32.4-45.2) 10/28/16 00:56 MCV 87.4 fl (80-96) 10/28/16 00:56 MCHC 33.1 g/dl (32.0-36.0) 10/28/16 00:56 RDW 14.0 % (11.6-15.6) 10/28/16 00:56 Plt Count 233 K/MM3 (134-434) D 10/28/16 00:56 MPV 8.8 fl (7.5-11.1) 10/28/16 00:56 CMP Sodium 140 mmol/L (136-145) 10/28/16 00:56 Potassium 4.0 mmol/L (3.5-5.1) 10/28/16 00:56 Chloride 104 mmol/L (98-107) 10/28/16 00:56 Carbon Dioxide 24 mmol/L (21-32) 10/28/16 00:56 Anion Gap 12 (8-16) 10/28/16 00:56 BUN 22 mg/dL (7-18) H D 10/28/16 00:56 Creatinine 0.9 mg/dL (0.55-1.02) 10/28/16 00:56 Creat Clearance w eGFR 59.65 (>60) 10/28/16 00:56 Random Glucose 138 mg/dL (74-106) H D 10/28/16 00:56 Calcium 8.7 mg/dL (8.5-10.1) 10/28/16 00:56 Total Bilirubin 0.8 mg/dL (0.2-1.0) 10/28/16 00:56 AST 24 U/L (15-37) 10/28/16 00:56 ALT 23 U/L (12-78) 10/28/16 00:56 Alkaline Phosphatase 72 U/L (45-117) D 10/28/16 00:56 Total Protein 7.3 g/dl (6.4-8.2) 10/28/16 00:56 Albumin 3.7 g/dl (3.4-5.0) 10/28/16 00:56 CARDIAC ENZYMES Creatine Kinase 405 IU/L (26-192) H D 10/28/16 14:30 Troponin I 2.27 ng/ml (0.00-0.05) H* 10/28/16 14:30 Current Medications Generic Name Dose Route Start Last Admin Trade Name Freq PRN Reason Stop Dose Admin Amlodipine Besylate 10 mg 10/28/16 12:45 10/28/16 17:22 Norvasc - PO 10 mg DAILY [facility] Administration Aspirin 81 mg 10/29/16 10:00 Asa - PO DAILY [facility] Atorvastatin Calcium 40 mg 10/28/16 22:00 Lipitor - PO HS [facility] Clopidogrel Bisulfate 75 mg 10/28/16 17:30 Plavix - PO DAILY [facility] Dextrose/Sodium Chloride 1,000 mls @ 42 mls/hr 10/28/16 17:45 10/28/16 19:25 D5-1/2ns - IV Not Given ASDIR [facility] Metoclopramide HCl 10 mg 10/28/16 10:00 10/28/16 17:22 Reglan Injection - IVPB 10 mg Q8H-IV [facility] Administration Metoprolol Succinate 25 mg 10/29/16 10:00 Toprol Xl - PO DAILY [facility] Ondansetron HCl 4 mg 10/28/16 09:29 Zofran Injection IVPB Q6H PRN NAUSEA Valsartan 320 mg 10/28/16 12:45 10/28/16 17:22 Diovan - PO 320 mg DAILY [facility] Administration Home Medications Medication Instructions Recorded Latanoprost 0.005% Eye Drops 0 drop ASDIR 09/17/16 [Xalatan 0.005% Eye Drops -] Amlodipine Besylate [Norvasc -] 10 mg PO DAILY #30 tablet 09/22/16 Lactobacillus Acidophilus [Bacid -] 1 tab PO DAILY tab 09/22/16 Valsartan [Diovan] 320 mg PO DAILY #30 tablet 09/22/16 Warfarin Na [Coumadin -] 5 mg PO DAILY@1800 tablet 09/22/16 Metoprolol Succinate [Toprol Xl -] 25 mg PO DAILY 10/28/16 Nitroglycerin Patch [Nitro-Dur] 0.2 mg TD DAILY 10/28/16 Torsemide [Demadex] 20 mg PO BID 10/28/16 Laboratory Tests 10/28/16 10/28/16 10/28/16 00:56 08:35 14:30 Creatine Kinase 166 405 H D Troponin I 0.15 H 1.15 H* 2.[address]* [address] of the head is negative. PE: per resident's note CVS: MIKAYLA 3/6 otherwise RRR. ASSESSMENT AND PLAN: Charlene is a 86 year old female with multiple past medical histories who presented to the ER after one day of nasuea and abdomenal pain. # Acuet NSTEMI, patient is anticoagulated with therapeutic INR, Cardio consulted , appreciated, On asa, plavix, statin., will add 40mg of Lipitor - Patient therapeutic on warfarin 5 mg PO (INR 2.8), atorvastatin 40 mg PO daily , SQ heparin BID 5000 units and D5 1/2 NS at 1000 mls @ 83 mls/hr. -Clopidogrel 75mg PO , Echo, Troponin 2 more sets , #Hypertension on amlodipine 10 mg PO daily and Valsartan 20mg PO daily continue #Hx of Diastolic CHF with Moderate on Torsemide 20mg PO BID continue, I's and Os , daily weight #Mildly elevated Blood sugar r/o T2DM; A1C ordered to rule out diabetes # afib:rate controlled on bb #h/o TIA head ct to rule out cva, AC, statin DVT: on Coumadin case dsicussed with the resident
[2016-10-28] MEDS: CLOPIDOGREL BISULFATE 75 MG TABLET (FP) PO SCH (21:57)
[2016-10-28] MEDS: ATORVASTATIN CA 40 MG TABLET (FP) PO SCH (21:57)
[2016-10-28] MEDS ORDERED: TORSEMIDE 20 MG TABLET (FP) PO SCH (22:00)
[2016-10-28 22:15] LABS: TROPONIN I 2.24 ng/ml (0.00-0.05)
[2016-10-28] MEDS ORDERED: HEPARIN NA (PORCINE) 5,000 UNITS/ML 1ML VIAL IVPUSH PRN ×2 (23:01)
[2016-10-28] MEDS ORDERED: HEPARIN INFUSION - 500 ML IVPB SCH (23:15)
[2016-10-29] MEDS: METOCLOPRAMIDE HCL INJECTION 10 MG/2 ML VIAL IVPB SCH ×3 (02:47→17:26)
[2016-10-29] MEDS: DEXTROSE 5%-0.45% SALINE 1,000 ML IV SCH ×2 (06:46→17:26)
--- NOTE | 2016-10-29 07:54 | PN ---
Physical Exam: SUBJECTIVE: Patient seen and examined at bedside. No acute events overnight. Pt states she feels much better and has no complaints at this time. Pt denies headache, cp, sob, abd pain, nausea, vomiting, diarrhea, dysuria, fever. OBJECTIVE: Vital Signs Period Temp Pulse Resp BP Sys/Menjivar Pulse Ox Last 24 Hr 98 F-99.4 F 69-89 16-18 113-147/54-74 100-100 GENERAL: The patient is awake, alert, and fully oriented, in no acute distress. HEAD: Normal with no signs of trauma. EYES: PERRL, extraocular movements intact, sclera anicteric, conjunctiva clear. No ptosis. ENT: Ears normal, nares patent, oropharynx clear without exudates, moist mucous membranes. NECK: Trachea midline, full range of motion, supple. LUNGS: Breath sounds equal, clear to auscultation bilaterally, no wheezes, no crackles, no accessory muscle use. HEART: Regular rate and rhythm, S1, S2 without murmur, rub or gallop. ABDOMEN: Soft, nontender, nondistended, normoactive bowel sounds, no guarding, no rebound, no hepatosplenomegaly, no masses. EXTREMITIES: 2+ pulses, warm, well-perfused, no edema. NEUROLOGICAL: Cranial nerves II through XII grossly intact. Normal speech, gait not observed. PSYCH: Normal mood, normal affect. SKIN: Warm, dry, normal turgor, no rashes or lesions noted Laboratory Results - last 24 hr 10/28/16 10/28/16 10/28/16 08:35 14:30 14:30 ESR D-Dimer Hemoglobin A1c % Lactic Acid Creatine Kinase 166 405 H D CK-MB (CK-2) 3.157 3.184 Troponin I 1.15 H* 2.27 H* C-Reactive Protein Triglycerides 91 Cholesterol 183 Total LDL Cholesterol 110 H HDL Cholesterol 64 H 10/28/16 10/28/16 10/28/16 14:30 20:30 20:30 ESR D-Dimer Hemoglobin A1c % 6.1 H Lactic Acid Creatine Kinase 540 H D CK-MB (CK-2) 2.820 Troponin I 2.24 H* C-Reactive Protein 1.3 H Triglycerides Cholesterol Total LDL Cholesterol HDL Cholesterol 10/28/16 10/28/16 10/28/16 20:30 20:30 20:40 ESR 45 H D-Dimer 239 H Hemoglobin A1c % Lactic Acid 1.0 Creatine Kinase CK-MB (CK-2) Troponin I C-Reactive Protein Triglycerides Cholesterol Total LDL Cholesterol HDL Cholesterol Active Medications Generic Name Dose Route Start Last Admin Trade Name Freq PRN Reason Stop Dose Admin Amlodipine Besylate 10 mg 10/28/16 12:45 10/28/16 17:22 Norvasc - PO 10 mg DAILY [facility] Administration Aspirin 81 mg 10/29/16 10:00 Asa - PO DAILY [facility] Atorvastatin Calcium 40 mg 10/28/16 22:00 10/28/16 21:57 Lipitor - PO 40 mg HS [facility] Administration Clopidogrel Bisulfate 75 mg 10/28/16 17:30 10/28/16 21:57 Plavix - PO 75 mg DAILY [facility] Administration Dextrose/Sodium Chloride 1,000 mls @ 42 mls/hr 10/28/16 17:45 10/29/16 06:46 D5-1/2ns - IV 42 mls/hr ASDIR [facility] Administration Metoclopramide HCl 10 mg 10/28/16 10:00 10/29/16 02:47 Reglan Injection - IVPB 10 mg Q8H-IV [facility] Administration Metoprolol Succinate 25 mg 10/29/16 10:00 Toprol Xl - PO DAILY [facility] Ondansetron HCl 4 mg 10/28/16 09:29 Zofran Injection IVPB Q6H PRN NAUSEA Valsartan 320 mg 10/28/16 12:45 10/28/16 17:22 Diovan - PO 320 mg DAILY [facility] Administration ASSESSMENT/PLAN: Charlene is a 86 year old female with multiple past medical histories who presented to the ER after one day of nasuea and abdomenal pain. # NSTEMI -Tn trend 0.15 -> 1.15 -> 2.27 -> 2.24 -> 1.96 - Head CT ruled out CVA - Patient was given in ER: ASA 162mg PO, Metoclopramide 10mg IV push, Zofran 4mg IV push, Mylanta 30ml PO - EKG, CXR in ED - Cardiology has been consulted with possible cathertization or stress test at a later date - Patient therapeutic on warfarin 5 mg PO (INR 2.8), atorvastatin 40 mg PO daily , SQ heparin BID 5000 units and D5 1/2 NS at 1000 mls @ 83 mls/hr. -Clopidogrel 75mg PO #r/o PE -pt was tachycardic with history of DVT and Afib -f/u U/S -f/u V/Q scan -f/u Echo #Hypertension -Patient started on amlodipine 10 mg PO daily -Valsartan 20mg PO daily #Diastolic CHF -per Dr. Giang, hold Torsemide 20mg PO BID since the patient is stable and has no swelling #R/o DM - A1C ordered to rule out diabetes #R/o HLD - Lipid panel is ordered #FEN -not on fluid -lytes WNL. Will monitor -Soft Diet Discussed with Dr. De Souza Visit type - Emergency Visit Emergency Visit: Yes ED Registration Date: 10/28/16 Care time: The patient presented to the Emergency Department on the above date and was hospitalized for further evaluation of their emergent condition. - New Patient This patient is new to me today: Yes Date on this admission: 10/29/16 - Critical Care Critical Care patient: No
[2016-10-29 08:02] LABS: MCH 29.5 pg (25.7-33.7); MCHC 33.6 g/dl (32.0-36.0); MEAN CELL VOLUME 87.9 fl (80-96); MEAN PLT VOLUME 9.1 fl (7.5-11.1); PLATELET COUNT 230 K/MM3 (134-434); RDW 13.9 % (11.6-15.6); WHITE BLOOD COUNT 8.3 K/mm3 (4.0-10.0)
[2016-10-29 09:05] LABS: INR 2.47 (0.82-1.09); PROTHROMBIN TIME (PATIENT) 27.7 SEC (9.98-11.88)
[2016-10-29 09:35] LABS: ALBUMIN 3.6 g/dl (3.4-5.0); ALK PHOS 65 U/L (45-117); AMYLASE 39 U/L (25-115); ANION GAP 10 (8-16); BILIRUBIN,TOTAL 1.8 mg/dL (0.2-1.0); CALCIUM 8.8 mg/dL (8.5-10.1); CO2 28 mmol/L (21-32); CREATININE 0.8 mg/dL (0.55-1.02); GLUCOSE,RANDOM 95 mg/dL (74-106); MAGNESIUM 2.2 mg/dL (1.8-2.4); PHOSPHOROUS 2.8 mg/dL (2.5-4.9); SGOT/AST 29 U/L (15-37); SGPT/ALT 18 U/L (12-78); TOT PROT 6.3 g/dl (6.4-8.2)
[2016-10-29] MEDS: METOPROLOL SUCCINATE 25 MG TAB.SR.24H (FP) PO SCH (09:43)
[2016-10-29] MEDS: ASPIRIN 81 MG CHEWABLE TABLETS PO SCH (09:43)
[2016-10-29] MEDS: CLOPIDOGREL BISULFATE 75 MG TABLET (FP) PO SCH (09:43)
[2016-10-29] MEDS: amLODIPine BESYLATE 10 MG TABLET (FP) PO SCH (09:43)
[2016-10-29] MEDS: VALSARTAN 160 MG TABLET (UD) PO SCH (09:43)
[2016-10-29 10:08] LABS: TROPONIN I 1.96 ng/ml (0.00-0.05)
--- NOTE | 2016-10-29 10:46 | PN ---
Progress Note (short form) - Note Progress Note: cc: nstemi s: no cp sob palps dizzy; feeling well, no overnight events o: Vital Signs Temp 98.1 F 10/29/16 08:00 Pulse 66 10/29/16 08:00 Resp 18 10/29/16 08:00 BP 116/50 10/29/16 08:00 Pulse Ox 100 10/28/16 21:00 Intake & Output 10/28/16 10/28/16 10/29/16 11:59 23:59 11:59 Intake Total 1001 530 Output Total 3 2 Balance 998 528 Weight 202 lb 4 oz 200 lb 6 oz Intake: IV 701 330 D5-1/2Ns - 1,000 ml @ 83 415 mls/hr IV ASDIR AMALIA Rx#: [id number] D5-1/2Ns - 1,000 ml @ 42 286 330 mls/hr IV ASDIR AMALIA Rx#: [id number] IVPB 50 Oral 300 150 Output: Gastric Drainage 2 Urine 3 Void 3 Other: Voiding Method Toilet Toilet # Unmeasured Voids Void 1 Bowel Movement No Height 5 ft 6 in Body Mass Index (BMI) 32.6 Weight Measurement Method Standing Scale nad calm, no jvd, neck supple irreg s1s2 no 2/6 murmur at sternal border cta bl, nl eff no le e/c/c abd nt nd pos bs no jaundice diaphoresis aaox3 pos dp pt Current Medications Generic Name Dose Route Start Last Admin Trade Name Freq PRN Reason Stop Dose Admin Amlodipine Besylate 10 mg 10/28/16 12:45 10/29/16 09:43 Norvasc - PO 10 mg DAILY [facility] Administration Aspirin 81 mg 10/29/16 10:00 10/29/16 09:43 Asa - PO 81 mg DAILY [facility] Administration Atorvastatin Calcium 40 mg 10/28/16 22:00 10/28/16 21:57 Lipitor - PO 40 mg HS [facility] Administration Clopidogrel Bisulfate 75 mg 10/28/16 17:30 10/29/16 09:43 Plavix - PO 75 mg DAILY [facility] Administration Dextrose/Sodium Chloride 1,000 mls @ 42 mls/hr 10/28/16 17:45 10/29/16 06:46 D5-1/2ns - IV 42 mls/hr ASDIR [facility] Administration Metoclopramide HCl 10 mg 10/28/16 10:00 10/29/16 09:43 Reglan Injection - IVPB 10 mg Q8H-IV [facility] Administration Metoprolol Succinate 25 mg 10/29/16 10:00 10/29/16 09:43 Toprol Xl - PO 25 mg DAILY [facility] Administration Ondansetron HCl 4 mg 10/28/16 09:29 Zofran Injection IVPB Q6H PRN NAUSEA Valsartan 320 mg 10/28/16 12:45 10/29/16 09:43 Diovan - PO 320 mg DAILY [facility] Administration Warfarin Sodium 5 mg 10/29/16 18:00 Coumadin - PO DAILY@1800 [facility] Laboratory Last Values WBC 8.3 K/mm3 (4.0-10.0) 10/29/16 05:48 RBC 4.47 M/mm3 (3.60-5.2) 10/29/16 05:48 Hgb 13.2 GM/dL (10.7-15.3) 10/29/16 05:48 Hct 39.3 % (32.4-45.2) 10/29/16 05:48 MCV 87.9 fl (80-96) 10/29/16 05:48 MCH 29.5 pg (25.7-33.7) 10/29/16 05:48 MCHC 33.6 g/dl (32.0-36.0) 10/29/16 05:48 RDW 13.9 % (11.6-15.6) 10/29/16 05:48 Plt Count 230 K/MM3 (134-434) 10/29/16 05:48 MPV 9.1 fl (7.5-11.1) 10/29/16 05:48 ESR 45 mm/hr (0-30) H 10/28/16 20:30 INR 2.47 (0.82-1.09) H 10/29/16 05:48 D-Dimer 239 ng/ml (<200-235) H 10/28/16 20:30 Sodium 140 mmol/L (136-145) 10/29/16 05:48 Potassium 3.9 mmol/L (3.5-5.1) 10/29/16 05:48 Chloride 102 mmol/L (98-107) 10/29/16 05:48 Carbon Dioxide 28 mmol/L (21-32) 10/29/16 05:48 Anion Gap 10 (8-16) 10/29/16 05:48 BUN 12 mg/dL (7-18) D 10/29/16 05:48 Creatinine 0.8 mg/dL (0.55-1.02) 10/29/16 05:48 Creat Clearance w eGFR > 60 (>60) 10/29/16 05:48 Random Glucose 95 mg/dL (74-106) D 10/29/16 05:48 Hemoglobin A1c % 6.1 % (4.8-6.0) H 10/28/16 14:30 Lactic Acid 1.0 mmol/L (0.4-2.0) 10/28/16 20:40 Calcium 8.8 mg/dL (8.5-10.1) 10/29/16 05:48 Phosphorus 2.8 mg/dL (2.5-4.9) D 10/29/16 05:48 Magnesium 2.2 mg/dL (1.8-2.4) 10/29/16 05:48 Total Bilirubin 1.8 mg/dL (0.2-1.0) H D 10/29/16 05:48 AST 29 U/L (15-37) D 10/29/16 05:48 ALT 18 U/L (12-78) D 10/29/16 05:48 Alkaline Phosphatase 65 U/L (45-117) 10/29/16 05:48 Creatine Kinase 372 IU/L (26-192) H D 10/29/16 05:48 CK-MB (CK-2) 2.119 ng/ml (0.5-3.6) 10/29/16 05:48 Troponin I 1.96 ng/ml (0.00-0.05) H* 10/29/16 05:48 C-Reactive Protein 1.3 MG/DL (0.00-0.3) H 10/28/16 20:30 Total Protein 6.3 g/dl (6.4-8.2) L 10/29/16 05:48 Albumin 3.6 g/dl (3.4-5.0) 10/29/16 05:48 Triglycerides 91 mg/dL (35-160) 10/28/16 14:30 Cholesterol 183 mg/dL (50-200) 10/28/16 14:30 Total LDL Cholesterol 110 mg/dL (5-100) H 10/28/16 14:30 HDL Cholesterol 64 mg/dL (40-60) H 10/28/16 14:30 Total Amylase 39 U/L (25-115) 10/29/16 05:48 Lipase 150 U/L (73-393) 10/29/16 05:48 ecg afib, lad, lvh with qrs widening. non-specific anterolateral twi. similar to priors tele: afib, rate controlled. cxr: wnl echo 08/2016: nl lv/rv, 1+ lae, mod (3.3 m/s, 44/27), 1+ mr, 1+ phtn MIBI 03/04 (lala): no STs; no isch (variable breast); nl EF; no LVE/TID a/p: 86 f hx dchf, htn, hl, afib on coumadin, h/o TIA per Dr. 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 nstemi - Prior trop levels have been in intermediate range and not thought to represent acs. However, now with higher spike, so now treating as ACS. Already anticoagulated with therapeutic INR, cont coumadin. Added asa, plavix, statin. Trend cardiac enzymes until start to trend down - ? nausea unlikely to be anginal equivalent as is longstanding, but cid may be. - MB remains wnl ddx of troponin elevation --> aortic stenosis (if it is more severe than measured on recent echo), CVA, PE (pt with h/o hypercoaguable state) , myopericarditis. v/q scan pending. -repeat echo pending. -will consider stress testing prior to dc for risk stratification n/v/d: - chronic mgm't per pmd mod /dchf: -recently initiated on torsemide 20 mg prn as outpatient. currently holding while with nausea/clear liquids diet. stable, no vol overload. -currently on IVF. - is mod on echo and should not be causing sx's. Repeat echo here to monitor htn: -cont home meds: benicar 40, toprol 25. Also on nitrol patch, but will hold off for now to avoid hypotension. afib: -rate controlled on bb -on ac with coumadin h/o TIA - head ct w/o acute findings - cont AC, statin chronic cid - appears to be at baseline? - r/o PE as mentioned. ? anginal equivalent. - does not appear to have pulmonary edema, con't to monitor - ? diagnosis of copd, will defer to pmd.
[2016-10-29 11:40] LABS: BILIRUBIN,DIRECT 0.3 mg/dL (0.0-0.2)
[2016-10-29 11:55] LABS: THYROID STIMULATING HORMONE 1.77 uIU/ml (0.358-3.74)
--- NOTE | 2016-10-29 11:55 | EKG ---
Test Reason : Blood Pressure : / mmHG Vent. Rate : 064 BPM Atrial Rate : 070 BPM P-R Int : 000 ms QRS Dur : 124 ms QT Int : 434 ms P-R-T Axes : 000 -48 039 degrees QTc Int : 447 ms ATRIAL FIBRILLATION LEFT ANTERIOR FASCICULAR BLOCK LEFT VENTRICULAR HYPERTROPHY WITH QRS WIDENING ABNORMAL ECG WHEN COMPARED WITH ECG OF 28-OCT-2016 00:28, T WAVE INVERSION NO LONGER EVIDENT IN LATERAL LEADS Confirmed by MIREYA JACKSON MD ([id number]) on 10/29/2016 11:55:19 AM Referred By: Evaristo NARAYAN Confirmed By:MIREYA JACKSON MD
--- NOTE | 2016-10-29 13:02 | EKG ---
Test Reason : Blood Pressure : / mmHG Vent. Rate : 088 BPM Atrial Rate : 192 BPM P-R Int : 000 ms QRS Dur : 122 ms QT Int : 392 ms P-R-T Axes : 000 -40 096 degrees QTc Int : 474 ms ATRIAL FIBRILLATION LEFT AXIS DEVIATION LEFT VENTRICULAR HYPERTROPHY WITH QRS WIDENING ABNORMAL ECG WHEN COMPARED WITH ECG OF 17-SEP-2016 15:42, T WAVE INVERSION NOW EVIDENT IN LATERAL LEADS Confirmed by RENETTA RESTREPO, MIREYA ([id number]) on 10/29/2016 1:02:27 PM Referred By: Confirmed By:MIREYA JACKSON MD
[2016-10-29 13:08] LABS: FREE T4 1.24 ng/dl (0.76-1.46)
--- NOTE | 2016-10-29 15:55 | MSN ---
Progress Note (short form) - Note Progress Note: Subjective: Patient was seen by me at the bed side. There were no over night events as per the nurses but telemetry showed multiple boughts of bradycardia <50 bpm over night. Patient was alert and oriented and able to answer questions. Patient stated feeling much better today. When questioned patient stated that he nauseas has subsided and that she no longer has a headache. Patients only complaint is constipation in which she has not defecated since admission. The patient also denies any chest pain, SOB, fever chills, or diarrhea. Vital Signs Period Temp Pulse Resp BP Sys/Menjivar Pulse Ox Last 24 Hr 98.1 F-98.2 F 66-72 16-20 113-133/50-72 96-100 Exam: Gen- alert and oreited in no acute distress Eyes- PEARLA, EOM intact, sclera anicteric and conjuctiva clear Neck- supple, no JVD, lyphademapthy or tracheal deviationb Heart- 3/6 systolic murmur best heard at the upper right sternal boarder with no rubs or gallops Lungs- clear to auscultation bilaterally in all lung rodriguez no wheezes, rales, ort rhonchi abdomen- no guarding, distension or rebounding, normoactive bowel sounds, no tendernes to palpation in any of the four quadrants extremities- 4/5 muscle strength 2/4 pulses and intact sensation in all extremities with decreased edema in the lower extremities. Skin- warm, pink, and dry with normal turgor Laboratory Results - last 24 hr 10/28/16 10/28/16 10/28/16 14:30 14:30 14:30 WBC RBC Hgb Hct MCV MCH MCHC RDW Plt Count MPV ESR INR D-Dimer Sodium Potassium Chloride Carbon Dioxide Anion Gap BUN Creatinine Creat Clearance w eGFR Random Glucose Hemoglobin A1c % 6.1 H Lactic Acid Calcium Phosphorus Magnesium Total Bilirubin Direct Bilirubin AST ALT Alkaline Phosphatase Creatine Kinase 405 H D CK-MB (CK-2) 3.184 Troponin I 2.27 H* C-Reactive Protein Total Protein Albumin Triglycerides 91 Cholesterol 183 Total LDL Cholesterol 110 H HDL Cholesterol 64 H Total Amylase Lipase TSH Free T4 10/28/16 10/28/16 10/28/16 20:30 20:30 20:30 WBC RBC Hgb Hct MCV MCH MCHC RDW Plt Count MPV ESR 45 H INR D-Dimer Sodium Potassium Chloride Carbon Dioxide Anion Gap BUN Creatinine Creat Clearance w eGFR Random Glucose Hemoglobin A1c % Lactic Acid Calcium Phosphorus Magnesium Total Bilirubin Direct Bilirubin AST ALT Alkaline Phosphatase Creatine Kinase 540 H D CK-MB (CK-2) 2.820 Troponin I 2.24 H* C-Reactive Protein 1.3 H Total Protein Albumin Triglycerides Cholesterol Total LDL Cholesterol HDL Cholesterol Total Amylase Lipase TSH Free T4 10/28/16 10/28/16 10/29/16 20:30 20:40 05:48 WBC 8.3 RBC 4.47 Hgb 13.2 Hct 39.3 MCV 87.9 MCH 29.5 MCHC 33.6 RDW 13.9 Plt Count 230 MPV 9.1 ESR INR D-Dimer 239 H Sodium Potassium Chloride Carbon Dioxide Anion Gap BUN Creatinine Creat Clearance w eGFR Random Glucose Hemoglobin A1c % Lactic Acid 1.0 Calcium Phosphorus Magnesium Total Bilirubin Direct Bilirubin AST ALT Alkaline Phosphatase Creatine Kinase CK-MB (CK-2) Troponin I C-Reactive Protein Total Protein Albumin Triglycerides Cholesterol Total LDL Cholesterol HDL Cholesterol Total Amylase Lipase TSH Free T4 10/29/16 10/29/16 10/29/16 05:48 05:48 05:48 WBC RBC Hgb Hct MCV MCH MCHC RDW Plt Count MPV ESR INR 2.47 H D-Dimer Sodium 140 Potassium 3.9 Chloride 102 Carbon Dioxide 28 Anion Gap 10 BUN 12 D Creatinine 0.8 Creat Clearance w eGFR > 60 Random Glucose 95 D Hemoglobin A1c % Lactic Acid Calcium 8.8 Phosphorus 2.8 D Magnesium 2.2 Total Bilirubin 1.8 H D Direct Bilirubin 0.3 H AST 29 D ALT 18 D Alkaline Phosphatase 65 Creatine Kinase 372 H D CK-MB (CK-2) 2.119 Troponin I 1.96 H* C-Reactive Protein Total Protein 6.3 L Albumin 3.6 Triglycerides Cholesterol Total LDL Cholesterol HDL Cholesterol Total Amylase 39 Lipase 150 TSH 1.77 Free T4 1.24 10/29/16 10/29/16 05:48 10:50 WBC RBC Hgb Hct MCV MCH MCHC RDW Plt Count MPV ESR INR D-Dimer Sodium Potassium Chloride Carbon Dioxide Anion Gap BUN Creatinine Creat Clearance w eGFR Random Glucose Hemoglobin A1c % Lactic Acid Calcium Phosphorus Magnesium Total Bilirubin Direct Bilirubin Cancelled AST ALT Alkaline Phosphatase Creatine Kinase CK-MB (CK-2) Troponin I C-Reactive Protein Total Protein Albumin Triglycerides Cholesterol Total LDL Cholesterol HDL Cholesterol Total Amylase Lipase TSH Free T4 Cancelled Current Medications Generic Name Dose Route Start Last Admin Trade Name Freq PRN Reason Stop Dose Admin Amlodipine Besylate 10 mg 10/28/16 12:45 10/29/16 09:43 Norvasc - PO 10 mg DAILY [facility] Administration Aspirin 81 mg 10/29/16 10:00 10/29/16 09:43 Asa - PO 81 mg DAILY [facility] Administration Atorvastatin Calcium 40 mg 10/28/16 22:00 10/28/16 21:57 Lipitor - PO 40 mg HS [facility] Administration Clopidogrel Bisulfate 75 mg 10/28/16 17:30 10/29/16 09:43 Plavix - PO 75 mg DAILY [facility] Administration Dextrose/Sodium Chloride 1,000 mls @ 42 mls/hr 10/28/16 17:45 10/29/16 06:46 D5-1/2ns - IV 42 mls/hr ASDIR [facility] Administration Metoclopramide HCl 10 mg 10/28/16 10:00 10/29/16 09:43 Reglan Injection - IVPB 10 mg Q8H-IV [facility] Administration Metoprolol Succinate 25 mg 10/29/16 10:00 10/29/16 09:43 Toprol Xl - PO 25 mg DAILY [facility] Administration Ondansetron HCl 4 mg 10/28/16 09:29 Zofran Injection IVPB Q6H PRN NAUSEA Valsartan 320 mg 10/28/16 12:45 10/29/16 09:43 Diovan - PO 320 mg DAILY AMALIA Administration Warfarin Sodium 5 mg 10/29/16 18:00 Coumadin - PO DAILY@1800 AMALIA Imaging: Chest x-ray (10/28/16)- no evidence of any acute pulmonary pathology Head CT (10/28/16)- no acute intracranial pathology RUQ ultrasound (10/29/16)- confirmed cholelithiasis Lower limb Doppler ultra sound (10/29/16)- kam cyst 1.7 x .7, and thrombus in the the superficial femoral vein. Thought to be chronic. Assessment and plan: Patient is an 86 year old female with multiple past medical histories who present to the ER with nasuea and abdominal pain who was found to have NSTEMI. # Nausea - improved - continue metocloprimide 10 mg IVPB q8hr - continue zofran 4mg IVPB q6 hrs PRN #NSTEMI - Echo ordered, awating interpretation - EKG showed no ST canges - trops .15, 1.15, 2.27, 2.24 - conitnue warfarin 5mg PO daily (INR 2.47) - ASA 81 mg PO daily - clopidigrel 75 mg PO daily - metroprol 25mg PO daily - atorvastatin 25mg PO daily #HTN - continue amlodipine 10 mg PO daily - losartan 320 mg PO daily F/E/N - D5 04/21 NS 1000ml @ 42 mls/hr IV - soft diet DVT propholaxysis -currently anticoagulated
[2016-10-29] MEDS ORDERED: PT OWN MED DRAWER 7, Y5N ONE (16:41)
[2016-10-29] MEDS: WARFARIN NA 5 MG TABLET (UD) PO SCH (17:26)
--- NOTE | 2016-10-29 19:07 | PN ---
Teaching Attending Note Name of Resident: Too Hahn ATTENDING PHYSICIAN STATEMENT I saw and evaluated the patient. I reviewed the resident's note and discussed the case with the resident. I agree with the resident's findings and plan as documented. SUBJECTIVE: no CP or fever . has no SOB now . had severe nausea yesterday which was different than her intermittent chronic nausea. OBJECTIVE: NAD CV : RRR, no JVD Lungs: CTAB ext : trace LE edema Abd : sfot, NT,. ND , NL BS . Lower abd surgical scar ASSESSMENT AND PLAN: 86 year old female with h/o DVT, PE, CVA , HTN, A fib on coumadin and other medical problems who presented with severe nausea and was found to have NSTEMI 1- NSTEMI: EKG with A fib and no ST or TW changes. L axis no signs of heart failure or hemodynamic instability - cont ASA , plavix . - cont BB , and statin - INR > 2 , if below 2 will start heparin gtt - will need a stress test before dc - clinical suspicion for PE is low ( WELLS score 0 ) , but D dimer slightly elevated. allergic to Iodine , so VQ scan ( low probability ) and US doppler ( old R popliteal and L superficial femoral clots ) done. ( WELLS 1.5 after US results ) - echo reviewed. NL EF , PUlm HTN, Mod -severe TR 2- A fib , rate controlled on BB - cont BB - cont coumadin 3- h/o D heart failure :L looks euvolemic now . - advanced diet - dc IVF - cont to hold home tordemide for now 4- Nausea: acute severe nausea yesterday , is likely related to her NE. chronic intermittent nausea was extensively w/u in past by GI. notable today rising indirect bili. Us done with no signs of obstruction . - monitor LFTS 5- chronic STEVENSON: probably due to pulm HTN and TR. w/u can cont as out pt with PFTs. 6- prediabetes: diet and exercise HLOC
[2016-10-29] MEDS: ATORVASTATIN CA 40 MG TABLET (FP) PO SCH (21:17)
[2016-10-30] MEDS: METOCLOPRAMIDE HCL INJECTION 10 MG/2 ML VIAL IVPB SCH ×3 (02:55→17:38)
--- NOTE | 2016-10-30 06:16 | PN ---
Physical Exam: SUBJECTIVE: Patient seen and examined at bedside. Pt had pauses of up to 2 sec on the cardiac rn overnight. Pt complains of constipation. No other complaints at this time. Pt denies headache, cp, sob, abd pain, nausea, vomiting , diarrhea, dysuria. OBJECTIVE: Vital Signs Period Temp Pulse Resp BP Sys/Menjivar Pulse Ox Last 24 Hr 97.6 F-98.1 F 61-74 16-20 116-144/50-74 96-97 GENERAL: The patient is awake, alert, and fully oriented, in no acute distress. HEAD: Normal with no signs of trauma. EYES: PERRL, extraocular movements intact, sclera anicteric, conjunctiva clear. No ptosis. ENT: Ears normal, nares patent, oropharynx clear without exudates, moist mucous membranes. NECK: Trachea midline, full range of motion, supple. LUNGS: Breath sounds equal, clear to auscultation bilaterally, no wheezes, no crackles, no accessory muscle use. HEART: Regular rate and rhythm, S1, S2 3/6 systolic murmur, rub or gallop. ABDOMEN: Soft, nontender, nondistended, normoactive bowel sounds, no guarding, no rebound, no hepatosplenomegaly, no masses. EXTREMITIES: 2+ pulses, warm, well-perfused, no edema. NEUROLOGICAL: Cranial nerves II through XII grossly intact. Normal speech, gait not observed. PSYCH: Normal mood, normal affect. SKIN: Warm, dry, normal turgor, no rashes or lesions noted Laboratory Results - last 24 hr 10/29/16 10/29/16 10/29/16 05:48 05:48 05:48 WBC 8.3 RBC 4.47 Hgb 13.2 Hct 39.3 MCV 87.9 MCH 29.5 MCHC 33.6 RDW 13.9 Plt Count 230 MPV 9.1 INR Sodium 140 Potassium 3.9 Chloride 102 Carbon Dioxide 28 Anion Gap 10 BUN 12 D Creatinine 0.8 Creat Clearance w eGFR > 60 Random Glucose 95 D Calcium 8.8 Phosphorus 2.8 D Magnesium 2.2 Total Bilirubin 1.8 H D Direct Bilirubin 0.3 H AST 29 D ALT 18 D Alkaline Phosphatase 65 Creatine Kinase 372 H D CK-MB (CK-2) 2.119 Troponin I 1.96 H* Total Protein 6.3 L Albumin 3.6 Total Amylase 39 Lipase 150 TSH 1.77 Free T4 1.24 Free T3 10/29/16 10/29/16 10/29/16 05:48 05:48 05:48 WBC RBC Hgb Hct MCV MCH MCHC RDW Plt Count MPV INR 2.47 H Sodium Potassium Chloride Carbon Dioxide Anion Gap BUN Creatinine Creat Clearance w eGFR Random Glucose Calcium Phosphorus Magnesium Total Bilirubin Direct Bilirubin AST ALT Alkaline Phosphatase Creatine Kinase CK-MB (CK-2) Troponin I Total Protein Albumin Total Amylase Lipase TSH Free T4 Cancelled Free T3 2.3 10/29/16 10:50 WBC RBC Hgb Hct MCV MCH MCHC RDW Plt Count MPV INR Sodium Potassium Chloride Carbon Dioxide Anion Gap BUN Creatinine Creat Clearance w eGFR Random Glucose Calcium Phosphorus Magnesium Total Bilirubin Direct Bilirubin Cancelled AST ALT Alkaline Phosphatase Creatine Kinase CK-MB (CK-2) Troponin I Total Protein Albumin Total Amylase Lipase TSH Free T4 Free T3 Active Medications Generic Name Dose Route Start Last Admin Trade Name Freq PRN Reason Stop Dose Admin Amlodipine Besylate 10 mg 10/28/16 12:45 10/29/16 09:43 Norvasc - PO 10 mg DAILY AMALIA Administration Aspirin 81 mg 10/29/16 10:00 10/29/16 09:43 Asa - PO 81 mg DAILY AMALIA Administration Atorvastatin Calcium 40 mg 10/28/16 22:00 10/29/16 21:17 Lipitor - PO 40 mg HS AMALIA Administration Clopidogrel Bisulfate 75 mg 10/28/16 17:30 10/29/16 09:43 Plavix - PO 75 mg DAILY AMALIA Administration Metoclopramide HCl 10 mg 10/28/16 10:00 10/30/16 02:55 Reglan Injection - IVPB 10 mg Q8H-IV AMALIA Administration Metoprolol Succinate 25 mg 10/29/16 10:00 10/29/16 09:43 Toprol Xl - PO 25 mg DAILY AMALIA Administration Ondansetron HCl 4 mg 10/28/16 09:29 Zofran Injection IVPB Q6H PRN NAUSEA Valsartan 320 mg 10/28/16 12:45 10/29/16 09:43 Diovan - PO 320 mg DAILY AMALIA Administration Warfarin Sodium 5 mg 10/29/16 18:00 10/29/16 17:26 Coumadin - PO 5 mg DAILY@1800 AMALIA Administration ASSESSMENT/PLAN: Charlene is a 86 year old female with multiple past medical histories who presented to the ER after one day of nasuea and abdomenal pain. # NSTEMI -Tn trend 0.15 -> 1.15 -> 2.27 -> 2.24 -> 1.96 - Head CT ruled out CVA - Patient was given in ER: ASA 162mg PO, Metoclopramide 10mg IV push, Zofran 4mg IV push, Mylanta 30ml PO - EKG stable - CXR - Cardiology has been consulted with possible cathertization at a later date - Per Cardio, pt will have a pharmacologic stress test - Patient therapeutic on warfarin 5 mg PO (INR 2.8) - ASA 81mg PO daily - Atorvastatin 40 mg PO daily -Metopralol 25mg PO daily #Afib -rate control with Metopralol 25mg PO daily -Pt theraputic on Coumadin (INR 2.47) #r/o CVA -Head CT negative #r/o PE -pt was tachycardic with history of DVT and Afib -vascular U/S study showed 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 Large airway disease present -Echo LV function is normal. RV pressure slightly elevated. #nausea -workup by GI in the past -Abd U/S revealed cholelithiasis without cholecystitis #Hypertension -Patient started on amlodipine 10 mg PO daily -Valsartan 20mg PO daily #Diastolic CHF -per Dr. Giang, hold Torsemide 20mg PO BID since the patient is stable and has no swelling #HLD - cholesterol 183 - Total LDL 110 - HDL 64 - Lipitor 40mg PO HS - Plavix 75mg PO HS #Pre DM - A1C 6.1% - Diabetic diet #FEN -not on fluid -lytes WNL. Will monitor -Diabetic Diet Discussed with Dr. De Souza Visit type - Emergency Visit Emergency Visit: No - New Patient This patient is new to me today: No - Critical Care Critical Care patient: No - Discharge Referral Referred to [facility] Med [facility] No
[2016-10-30 07:54] LABS: EOSINOPHIL 3.6 % (0-4.5); MCH 29.1 pg (25.7-33.7); MCHC 33.5 g/dl (32.0-36.0); MEAN CELL VOLUME 86.9 fl (80-96); MEAN PLT VOLUME 8.8 fl (7.5-11.1); NEUTROPHILS 64.1 % (42.8-82.8); PLATELET COUNT 250 K/MM3 (134-434); RDW 13.6 % (11.6-15.6); WHITE BLOOD COUNT 7.3 K/mm3 (4.0-10.0)
[2016-10-30 08:26] LABS: ANION GAP 6 (8-16); CALCIUM 8.9 mg/dL (8.5-10.1); CO2 30 mmol/L (21-32); GLUCOSE,RANDOM 103 mg/dL (74-106)
[2016-10-30] MEDS ORDERED: POLYETHYLENE GLYCOL 3350 119 GM BTL PO ONE (09:30)
[2016-10-30] MEDS: ASPIRIN 81 MG CHEWABLE TABLETS PO SCH (09:44)
[2016-10-30] MEDS: CLOPIDOGREL BISULFATE 75 MG TABLET (FP) PO SCH (09:44)
[2016-10-30] MEDS: amLODIPine BESYLATE 10 MG TABLET (FP) PO SCH (09:44)
[2016-10-30] MEDS: METOPROLOL SUCCINATE 25 MG TAB.SR.24H (FP) PO SCH (09:44)
[2016-10-30] MEDS: VALSARTAN 160 MG TABLET (UD) PO SCH (09:44)
[2016-10-30 09:47] LABS: CREATININE 0.9 mg/dL (0.55-1.02)
[2016-10-30] MEDS: DOCUSATE SODIUM 100 MG CAPSULE (FP) PO SCH ×2 (09:47→21:09)
[2016-10-30] MEDS ORDERED: DOCUSATE SODIUM 100 MG CAPSULE (FP) PO SCH (10:00)
--- NOTE | 2016-10-30 11:35 | PN ---
Progress Note (short form) - Note Progress Note: cc: nstemi s: no cp sob palps dizzy; feeling well, no overnight events no cigs o: Vital Signs Temp 98 F 10/30/16 10:00 Pulse 78 10/30/16 10:00 Resp 18 10/30/16 10:00 BP 117/66 10/30/16 10:00 Pulse Ox 97 10/30/16 09:00 Intake & Output 10/29/16 10/29/16 10/30/16 11:59 23:59 11:59 Intake Total 530 420 0 Output Total 2 Balance 528 420 0 Weight 200 lb 6 oz 199 lb Intake: IV 330 D5-1/2Ns - 1,000 ml @ 42 330 mls/hr IV ASDIR AMALIA Rx#: [id number] IVPB 50 Oral 150 420 0 Output: Gastric Drainage 2 Other: Voiding Method Toilet Toilet Toilet Bowel Movement No No Weight Measurement Method Standing Scale Standing Scale nad calm, no jvd, neck supple irreg s1s2 no 2/6 murmur at sternal border cta bl, nl eff no le e/c/c abd nt nd pos bs no jaundice diaphoresis aaox3 pos dp pt Current Medications Generic Name Dose Route Start Last Admin Trade Name Freq PRN Reason Stop Dose Admin Amlodipine Besylate 10 mg 10/28/16 12:45 10/30/16 09:44 Norvasc - PO 10 mg DAILY AMALIA Administration Aspirin 81 mg 10/29/16 10:00 10/30/16 09:44 Asa - PO 81 mg DAILY AMALIA Administration Atorvastatin Calcium 40 mg 10/28/16 22:00 10/29/16 21:17 Lipitor - PO 40 mg HS AMALIA Administration Clopidogrel Bisulfate 75 mg 10/28/16 17:30 10/30/16 09:44 Plavix - PO 75 mg DAILY AMALIA Administration Docusate Sodium 100 mg 10/30/16 10:00 10/30/16 09:47 Colace - PO 100 mg BID AMALIA Administration Metoclopramide HCl 10 mg 10/28/16 10:00 10/30/16 09:44 Reglan Injection - IVPB 10 mg Q8H-IV AMALIA Administration Metoprolol Succinate 25 mg 10/29/16 10:00 10/30/16 09:44 Toprol Xl - PO 25 mg DAILY AMALIA Administration Ondansetron HCl 4 mg 10/28/16 09:29 Zofran Injection IVPB Q6H PRN NAUSEA Polyethylene Glycol 17 gm 10/31/16 10:00 Miralax (For Daily Use) - PO DAILY [facility] Senna 2 tab 10/30/16 22:00 Senna - PO HS [facility] Valsartan 320 mg 10/28/16 12:45 10/30/16 09:44 Diovan - PO 320 mg DAILY [facility] Administration Warfarin Sodium 5 mg 10/29/16 18:00 10/29/16 17:26 Coumadin - PO 5 mg DAILY@1800 AMALIA Administration Laboratory Last Values WBC 7.3 K/mm3 (4.0-10.0) 10/30/16 05:45 RBC 4.77 M/mm3 (3.60-5.2) 10/30/16 05:45 Hgb 13.9 GM/dL (10.7-15.3) 10/30/16 05:45 Hct 41.4 % (32.4-45.2) 10/30/16 05:45 MCV 86.9 fl (80-96) 10/30/16 05:45 MCH 29.1 pg (25.7-33.7) 10/30/16 05:45 MCHC 33.5 g/dl (32.0-36.0) 10/30/16 05:45 RDW 13.6 % (11.6-15.6) 10/30/16 05:45 Plt Count 250 K/MM3 (134-434) 10/30/16 05:45 MPV 8.8 fl (7.5-11.1) 10/30/16 05:45 Neutrophils % 64.1 % (42.8-82.8) 10/30/16 05:45 Lymphocytes % 23.5 % (8-40) D 10/30/16 05:45 Monocytes % 7.8 % (3.8-10.2) 10/30/16 05:45 Eosinophils % 3.6 % (0-4.5) D 10/30/16 05:45 Basophils % 1.0 % (0-2.0) 10/30/16 05:45 ESR 45 mm/hr (0-30) H 10/28/16 20:30 INR 2.47 (0.82-1.09) H 10/29/16 05:48 D-Dimer 239 ng/ml (<200-235) H 10/28/16 20:30 Sodium 139 mmol/L (136-145) 10/30/16 05:45 Potassium 4.1 mmol/L (3.5-5.1) 10/30/16 05:45 Chloride 103 mmol/L (98-107) 10/30/16 05:45 Carbon Dioxide 30 mmol/L (21-32) 10/30/16 05:45 Anion Gap 6 (8-16) L 10/30/16 05:45 BUN 14 mg/dL (7-18) 10/30/16 05:45 Creatinine 0.9 mg/dL (0.55-1.02) 10/30/16 05:45 Creat Clearance w eGFR > 60 (>60) 10/29/16 05:48 Random Glucose 103 mg/dL (74-106) 10/30/16 05:45 Hemoglobin A1c % 6.1 % (4.8-6.0) H 10/28/16 14:30 Lactic Acid 1.0 mmol/L (0.4-2.0) 10/28/16 20:40 Calcium 8.9 mg/dL (8.5-10.1) 10/30/16 05:45 Phosphorus 2.8 mg/dL (2.5-4.9) D 10/29/16 05:48 Magnesium 2.2 mg/dL (1.8-2.4) 10/29/16 05:48 Total Bilirubin 1.8 mg/dL (0.2-1.0) H D 10/29/16 05:48 Direct Bilirubin Cancelled 10/29/16 10:50 AST 29 U/L (15-37) D 10/29/16 05:48 ALT 18 U/L (12-78) D 10/29/16 05:48 Alkaline Phosphatase 65 U/L (45-117) 10/29/16 05:48 Creatine Kinase 372 IU/L (26-192) H D 10/29/16 05:48 CK-MB (CK-2) 2.119 ng/ml (0.5-3.6) 10/29/16 05:48 Troponin I 1.96 ng/ml (0.00-0.05) H* 10/29/16 05:48 C-Reactive Protein 1.3 MG/DL (0.00-0.3) H 10/28/16 20:30 Total Protein 6.3 g/dl (6.4-8.2) L 10/29/16 05:48 Albumin 3.6 g/dl (3.4-5.0) 10/29/16 05:48 Triglycerides 91 mg/dL (35-160) 10/28/16 14:30 Cholesterol 183 mg/dL (50-200) 10/28/16 14:30 Total LDL Cholesterol 110 mg/dL (5-100) H 10/28/16 14:30 HDL Cholesterol 64 mg/dL (40-60) H 10/28/16 14:30 Total Amylase 39 U/L (25-115) 10/29/16 05:48 Lipase 150 U/L (73-393) 10/29/16 05:48 TSH 1.77 uIU/ml (0.358-3.74) 10/29/16 05:48 Free T4 1.24 ng/dl (0.76-1.46) 10/29/16 05:48 Free T3 2.3 pg/ml (2.0-4.4) 10/29/16 05:48 ecg afib, lad, lvh with qrs widening. non-specific anterolateral twi. similar to priors tele: afib, rate controlled. cxr: wnl echo 08/2016: nl lv/rv, 1+ lae, mod (3.3 m/s, 44/27), 1+ mr, 1+ phtn echo 11/03: nl lvef, rv tds, mod fallon, mild mr, mod as, mild-mod AR, mod-sev tr, rvsp 40-50 MIBI 03/04 (lala): no STs; no isch (variable breast); nl EF; no LVE/TID a/p: 86 f hx dchf, htn, hl, afib on coumadin, h/o TIA per Dr. 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 nstemi - Prior trop levels have been in intermediate range and not thought to represent acs. However, now with higher spike, so now treating as ACS. Already anticoagulated with therapeutic INR, cont coumadin. Added asa, plavix, statin. trop trending down now. -v/q scan low prob -echo similar to prior -will send for nuclear stress test tomorrow for risk stratification n/v/d: - chronic mgm't per pmd mod /dchf: -recently initiated on torsemide 20 mg prn as outpatient. currently holding while with nausea/clear liquids diet. stable, no vol overload. - is mod on echo and should not be causing sx's. htn: -cont home meds: benicar 40, toprol 25. Also on nitrol patch, but will hold off for now to avoid hypotension. afib: -rate controlled on bb -on ac with coumadin h/o TIA - head ct w/o acute findings - cont AC, statin
--- NOTE | 2016-10-30 14:13 | MSN ---
Progress Note (short form) - Note Progress Note: Subjective: Patient was seen by my at the bedside. Patient was shown to have bradycardia < 50 bpm on multiple occasions over night as per the monitor worker. When seen the patient was alert and oriented and able to answer questions. when asked patient stated that she slept well and felt improved from previous days. the patients only complaint was constipation and was concerned that she had not moved her bowels in several days. Otherwise, the patient denied any chest pain, SOB, abdominal pain, fever, chills, headache, or swelling in her legs. Vital Signs Period Temp Pulse Resp BP Sys/Menjivar Pulse Ox Last 24 Hr 97.6 F-98.4 F 61-78 18-20 117-144/58-74 97-97 Exam- Gen- elderly white female sitting in bed comfortably, alert and oriented in no acute distress, appears stated age, well looking, well nourished. Eyes- PEARLA, EOM intact, sclera anicteric, conjunctiva clear. Heart- Regular, rate, and rhythm 3/6 systolic murmur and no rubs, or gallops. Lungs- Clear to auscultation bilaterally in all lung rodriguez with no wheezes, rales, or rhonchi. Abdomen- no distention, guarding or rebounding, normoactive bowel sounds, no tenderness to palpation in any of the four quadrants. Extremities- 4/5 muscle strength, 2/4 pulses and intact sensations in all extremities with no edema in the lower extremities but pain on palpation that is her baseline. Skin- warm, pink and dry Laboratory Results - last 24 hr 10/29/16 10/30/16 10/30/16 05:48 05:45 05:45 WBC 7.3 RBC 4.77 Hgb 13.9 Hct 41.4 MCV 86.9 MCH 29.1 MCHC 33.5 RDW 13.6 Plt Count 250 MPV 8.8 Neutrophils % 64.1 Lymphocytes % 23.5 D Monocytes % 7.8 Eosinophils % 3.6 D Basophils % 1.0 Sodium 139 Potassium 4.1 Chloride 103 Carbon Dioxide 30 Anion Gap 6 L BUN 14 Creatinine 0.9 Random Glucose 103 Calcium 8.9 Free T3 2.3 Current Medications Generic Name Dose Route Start Last Admin Trade Name Freq PRN Reason Stop Dose Admin Amlodipine Besylate 10 mg 10/28/16 12:45 10/30/16 09:44 Norvasc - PO 10 mg DAILY AMALIA Administration Aspirin 81 mg 10/29/16 10:00 10/30/16 09:44 Asa - PO 81 mg DAILY AMALIA Administration Atorvastatin Calcium 40 mg 10/28/16 22:00 10/29/16 21:17 Lipitor - PO 40 mg HS AMALIA Administration Clopidogrel Bisulfate 75 mg 10/28/16 17:30 10/30/16 09:44 Plavix - PO 75 mg DAILY AMALIA Administration Docusate Sodium 100 mg 10/30/16 10:00 10/30/16 09:47 Colace - PO 100 mg BID AMALIA Administration Metoclopramide HCl 10 mg 10/28/16 10:00 10/30/16 09:44 Reglan Injection - IVPB 10 mg Q8H-IV AMALIA Administration Metoprolol Succinate 25 mg 10/29/16 10:00 10/30/16 09:44 Toprol Xl - PO 25 mg DAILY AMALIA Administration Ondansetron HCl 4 mg 10/28/16 09:29 Zofran Injection IVPB Q6H PRN NAUSEA Polyethylene Glycol 17 gm 10/31/16 10:00 Miralax (For Daily Use) - PO DAILY [facility] Senna 2 tab 10/30/16 22:00 Senna - PO HS AMALIA Valsartan 320 mg 10/28/16 12:45 10/30/16 09:44 Diovan - PO 320 mg DAILY AMALIA Administration Warfarin Sodium 5 mg 10/29/16 18:00 10/29/16 17:26 Coumadin - PO 5 mg DAILY@1800 AMALIA Administration Imaging: Chest x-ray (10/28/16)- no evidence of any acute pulmonary pathology Head CT (10/28/16)- no acute intracranial pathology RUQ ultrasound (10/29/16)- confirmed cholelithiasis Lower limb Doppler ultra sound (10/29/16)- kam cyst 1.7 x .7, and thrombus in the the superficial femoral vein. Thought to be chronic. Echocardiogram (10/29/16)- Right ventricular pressure elevated, normal left ventricular size and ejection fraction, right and left atrial dilation, and mild aortic regurgitation. Assessment and plan: Patient is an 86 year old female with multiple past medical histories who present to the ER with nasuea and abdominal pain who was found to have NSTEMI. # Nausea - improved - continue metocloprimide 10 mg IVPB q8hr - continue zofran 4mg IVPB q6 hrs PRN #NSTEMI - stress test planned for tomorrow morning - Echo completed, showed right ventricular pressure elevated, normal left ventricular size and ejection fraction, right and left atrial dilation, and mild aortic regurgitation. - EKG showed no ST canges - trops .15, 1.15, 2.27, 2.24, 1.96 - conitnue warfarin 5mg PO daily (INR 2.47) - ASA 81 mg PO daily - clopidigrel 75 mg PO daily - metroprol 25mg PO daily - atorvastatin 25mg PO daily - plan to restart torsemide 20mg PO BID #HTN - continue amlodipine 10 mg PO daily - losartan 320 mg PO daily F/E/N - D/C D5 1/2 NS 1000ml @ 42 mls/hr IV - continue soft diet DVT propholaxysis -currently anticoagulated
--- NOTE | 2016-10-30 14:48 | PN ---
Teaching Attending Note Name of Resident: Too Hahn ATTENDING PHYSICIAN STATEMENT I saw and evaluated the patient. I reviewed the resident's note and discussed the case with the resident. I agree with the resident's findings and plan as documented. SUBJECTIVE: no fever or chills. has nausea , with eating , but no vomiting. no cp or SOB. OBJECTIVE: NAD CV : RRR, no JVD Lungs: CTAB ext: trace LE edema ASSESSMENT AND PLAN: 86 year old female with h/o DVT, PE, CVA , HTN, A fib on coumadin and other medical problems who presented with severe nausea and was found to have NSTEMI 1- NSTEMI: EKG no acute ischemic changes no signs of heart failure or hemodynamic instability - cont ASA , plavix . - cont BB , and statin - anticoagulated - stress test tomorrow 2- A fib , rate controlled on BB - cont BB - cont coumadin 3- h/o D heart failure :L looks euvolemic now . - will probably resume Torsemide tomorrow 4-chronic Nausea was extensively w/u in past by GI. Us with no signs of obstruction . will repeat LFTS tomorrow rest of w/u for nausea as out pt 5- Chronic STEVENSON: probably due to pulm HTN and TR. w/u can cont as out pt with PFTs. 6- pre-diabetes: diet and exercise HLOC
[2016-10-30 15:27] LABS: INR 2.24 (0.82-1.09)
[2016-10-30] MEDS: WARFARIN NA 5 MG TABLET (UD) PO SCH (17:38)
[2016-10-30] MEDS ORDERED: GLYCERIN 1 RECTAL SUPPOSITORY, ADULT PR ONE (18:08)
[2016-10-30] MEDS: ATORVASTATIN CA 40 MG TABLET (FP) PO SCH (21:10)
[2016-10-30] MEDS ORDERED: SENNOSIDES 8.6MG TABLET (FP) PO SCH (22:00)
[2016-10-31] MEDS: METOCLOPRAMIDE HCL INJECTION 10 MG/2 ML VIAL IVPB SCH ×3 (01:17→17:00)
[2016-10-31 07:22] LABS: MCH 29.9 pg (25.7-33.7); MCHC 34.3 g/dl (32.0-36.0); MEAN CELL VOLUME 87.2 fl (80-96); MEAN PLT VOLUME 8.4 fl (7.5-11.1); PLATELET COUNT 224 K/MM3 (134-434); RDW 13.3 % (11.6-15.6); WHITE BLOOD COUNT 6.5 K/mm3 (4.0-10.0)
[2016-10-31 08:56] LABS: INR 2.12 (0.82-1.09); PROTHROMBIN TIME (PATIENT) 23.7 SEC (9.98-11.88)
[2016-10-31 09:50] LABS: ALBUMIN 2.9 g/dl (3.4-5.0); ANION GAP 8 (8-16); CALCIUM 8.4 mg/dL (8.5-10.1); CO2 28 mmol/L (21-32); CREATININE 0.9 mg/dL (0.55-1.02); GLUCOSE,RANDOM 91 mg/dL (74-106); SGOT/AST 22 U/L (15-37); SGPT/ALT 18 U/L (12-78)
[2016-10-31 09:52] LABS: ALK PHOS 60 U/L (45-117); BILIRUBIN,DIRECT 0.2 mg/dL (0.0-0.2); BILIRUBIN,TOTAL 1.2 mg/dL (0.2-1.0)
[2016-10-31] MEDS ORDERED: DIPYRIDAMOLE STRESS TEST 50 MG in DEXTROSE 5%-WATER - 40 ML IVPB ONE (10:00)
[2016-10-31] MEDS ORDERED: POLYETHYLENE GLYCOL 3350 119 GM BTL PO SCH (10:00)
[2016-10-31] MEDS ORDERED: TORSEMIDE 20 MG TABLET (FP) PO SCH (11:30)
[2016-10-31] MEDS: ASPIRIN 81 MG CHEWABLE TABLETS PO SCH (12:23)
[2016-10-31] MEDS: amLODIPine BESYLATE 10 MG TABLET (FP) PO SCH (12:23)
[2016-10-31] MEDS: CLOPIDOGREL BISULFATE 75 MG TABLET (FP) PO SCH (12:23)
[2016-10-31] MEDS: DOCUSATE SODIUM 100 MG CAPSULE (FP) PO SCH (12:23)
[2016-10-31] MEDS: VALSARTAN 160 MG TABLET (UD) PO SCH (12:23)
[2016-10-31] MEDS: METOPROLOL SUCCINATE 25 MG TAB.SR.24H (FP) PO SCH (12:23)
[2016-10-31] MEDS ORDERED: TORSEMIDE 20 MG TABLET (FP) PO PRN (15:29)
[2016-10-31 15:41] VITALS: BP 164/74; PULSE 81; TEMP 97.8
--- NOTE | 2016-10-31 16:30 | MSN ---
Progress Note (short form) - Note Progress Note: Subjective: Patient was seen by me at the bedside. Patient was alert and oriented and able to answer questions.The patient stated that she felt well today. When questioned , her only new complaint was that she had two bought of watery diarrhea over night that was not brought on by anything in particular including food or drink. Otherwise she denied any fever, chills, chest pain, SOB, or headache. Vital Signs Period Temp Pulse Resp BP Sys/Menjivar Pulse Ox Last 24 Hr 97.2 F-98.8 F 60-81 18-20 120-164/54-78 96-96 Exam: General: Patient was seated comfortably in her bed, alert and oriented and in no distress Heart: Regular rate and rhythm, normal S1 and S2, with no murmurs rubs or gallops. Lungs: clear to auscultation bilaterally in all lung rodriguez with no wheezes, rales or rhonchi.
[2016-10-31] MEDS: WARFARIN NA 2.5 MG TABLET (FP) PO ONE ×2 (16:41→17:00)
[2016-10-31] MEDS: WARFARIN NA 5 MG TABLET (UD) PO SCH ×2 (16:42→17:00)
--- NOTE | 2016-10-31 18:20 | PN ---
Teaching Attending Note Name of Resident: Too Hahn ATTENDING PHYSICIAN STATEMENT I saw and evaluated the patient. I reviewed the resident's note and discussed the case with the resident. I agree with the resident's findings and plan as documented. ASSESSMENT AND PLAN: 86 year old female with h/o DVT, PE, CVA , HTN, A fib on coumadin and other medical problems who presented with severe nausea and was found to have NSTEMI 1- NSTEMI: stress test with fixed anterioapical defect with small area of reversible ischemia . this was d/w Card and no cath was indicated. Medical management was indicated dc plavix , cont asa and coumadin cont BB and statin f/u with card as outpt 2- A fib , rate controlled on BB - cont BB - cont coumadin . INR trended down, will give 7.5 today and 5 daily after then . INR on Thursday 3- h/o D heart failure :L looks euvolemic now . on PRN torsemide at home. will resume as per pre-admission 4-Chronic Nausea was extensively w/u in past by GI. Us with no signs of obstruction . LFTS improved rest of w/u for nausea as out pt 5- Chronic STEVENSON: probably due to pulm HTN and TR. w/u can cont as out pt with PFTs. Dc home . dw card by team
--- NOTE | 2016-10-31 19:26 | DS ---
Physical Exam: SUBJECTIVE: Patient seen and examined OBJECTIVE: Vital Signs Period Temp Pulse Resp BP Sys/Menjivar Pulse Ox Last 24 Hr 97.2 F-98.8 F 60-81 18-20 120-164/54-78 96-96 PHYSICAL EXAM GENERAL: The patient is awake, alert, and fully oriented, in no acute distress. HEAD: Normal with no signs of trauma. EYES: PERRL, extraocular movements intact, sclera anicteric, conjunctiva clear. ENT: Ears normal, nares patent, oropharynx clear without exudates, moist mucous membranes. NECK: Trachea midline, full range of motion, supple. LUNGS: Breath sounds equal, clear to auscultation bilaterally, no wheezes, no crackles, no accessory muscle use. HEART: Regular rate and rhythm, S1, S2 without murmur, rub or gallop. ABDOMEN: Soft, nontender, nondistended, normoactive bowel sounds, no guarding, no rebound, no hepatosplenomegaly, no masses. EXTREMITIES: 2+ pulses, warm, well-perfused, no edema. NEUROLOGICAL: Cranial nerves II through XII grossly intact. Normal speech, gait not observed. PSYCH: Normal mood, normal affect. SKIN: Warm, dry, normal turgor, no rashes or lesions noted. LABS Laboratory Results - last 24 hr 10/31/16 10/31/16 10/31/16 05:35 05:35 08:28 WBC 6.5 RBC 4.30 Hgb 12.9 Hct 37.5 MCV 87.2 MCH 29.9 MCHC 34.3 RDW 13.3 Plt Count 224 MPV 8.4 INR 2.12 H Sodium 141 Potassium 4.0 Chloride 105 Carbon Dioxide 28 Anion Gap 8 BUN 18 D Creatinine 0.9 Creat Clearance w eGFR 59.65 Random Glucose 91 Calcium 8.4 L Total Bilirubin 1.2 H D Direct Bilirubin 0.2 D AST 22 D ALT 18 Alkaline Phosphatase 60 Total Protein 6.0 L Albumin 2.9 L HOSPITAL COURSE: Date of Admission:10/28/16 Date of Discharge: 10/31/16 This paitent is a 86 year old female with multiple past medical histories who presented to the ER after one day of nasuea and abdomenal pain. The patient was admitted for diagnosis and treatment of an NSTEMI. Troponins were trended and peaked at 2.27. The patient's CXR was normal. EKG was stable from previous and did not have ST segment elevation. The patient was therapeutic on warfarin and was given ASA, Metoclopramide, Zofran, Mylanta. A head CT was done, which ruled out a CVA. The patient was started on ASA, Atorvastatin, and Metopralol, and she was continued on her coumadin. These medications also covered her Afib therapy goals. Because of her tachycardia with history of DVT and Afib, concern was raised for PE. 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 V/Q scan showed low likelihood of PE. An Echo showed normal LV function and slightly elevated RV pressure. The patient's chronic nausea has been extensively worked up by her GI in the past. Currently, her nausea has subsided. The patient's hypertension was treated with her home medications (amlodipine and valsartan). Per the serging machine operator, the patient's Torsemide was held because her CHF was not worsening during this admission. During her stay, the patient was found to have hyperlipidemia for which she was given lipitor and plavix. She was also found to be prediabetic, which was controlled with diet. Discussed with Dr. Nolvia Piña to complete discharge: 45 Discharge Summary Reason For Visit: TROPONIN ELEVATED REF RANGE R/O ACS Condition: Improved - Instructions Diet, Activity, Other Instructions: You were admitted because of evaluation of chest pain and was found to have a minor heart attack. You were treated with medications to help protect your heart. You were seen by your serging machine operator, while you were here. You had blood work done, which aided in your diagnosis and treatment, and you had several imaging studies done, as well. One of these was a chemical stress test, which showed that your heart muscle is not normal. This abnormality may be related to the minor heart attack you suffered prior to your hospital admission. You will need to see your serging machine operator as an out patient so you can decide the best way to proceed. During your hospital stay, you were also treated for atrial fibrillation. Your blood was anticoagulated appropriately, and you were given medication to control the rate your heart was beating. You were also treated for your hypertension and your heart failure. On you admission, you had a CT scan of your head, which ruled out a stroke (a possible cause of some of your blood work abnormalities). You also had a CT scan of your chest to make sure you didn't have any blood clots in your lungs. There was a concern for this because you have some risk factors, including previous deep vein thrombosis (DVT) in the legs. Please follow up with GI for evaluation of nausea. Please follow up with PCP in a week. Return to the Emergency Department immediately if your symptoms worsen or if you develop any new symptoms. Referrals: Betty Carlisle MD [Staff Physician] - 1 Week Severiano Liu MD [Staff Physician] - 1 Week Disposition: HOME - Home Medications Comprehensive Discharge Medication List: Ambulatory Orders Latanoprost 0.005% Eye Drops [Xalatan 0.005% Eye Drops -] 0 drop ASDIR 09/17/16 Amlodipine Besylate [Norvasc -] 10 mg PO DAILY #30 tablet 09/22/16 Lactobacillus Acidophilus [Bacid -] 1 tab PO DAILY tab 09/22/16 Warfarin Na [Coumadin -] 5 mg PO DAILY@1800 tablet 09/22/16 Metoprolol Succinate [Toprol XL -] 25 mg PO DAILY 10/28/16 Nitroglycerin Patch [Nitro-Dur Patch -] 0.2 mg TD DAILY 10/28/16 Aspirin [ASA -] 81 mg PO DAILY #30 tab.chew 10/31/16 Atorvastatin Ca [Lipitor] 40 mg PO HS #30 tablet 10/31/16 Docusate Sodium [Colace -] 100 mg PO BID #60 cap 10/31/16 Polyethylene Glycol 3350 [Miralax 119 gm Btl -] 17 gm PO DAILY #1 bottle Sennosides [Senna -] 2 tab PO HS #20 tablet 10/31/16 Torsemide [Demadex -] 20 mg PO PRN PRN #20 tablet MDD 1 10/31/16 Valsartan [Diovan] 320 mg PO DAILY tablet 10/31/16 This patient is new to me today: Yes Date on this admission: 11/04/16 Emergency Visit: No Critical Care patient: No - Discharge Referral Referred to [facility] No
== END 2016-10-31 17:10 | disposition home or self-care (01) | DRG 281 ==
LOC: JER 23:24 → JERBED 10-28 02:55 → OBSVTOIN 10-28 02:55 → J4W 10-28 05:40
PROVIDERS: ADMIT Family Medicine; ATTEND Internal Medicine
DX: I21.4 Non-ST elevation (NSTEMI) myocardial infarction (principal); I50.30 Unspecified diastolic (congestive) heart failure; I11.0 Hypertensive heart disease with heart failure; D64.9 Anemia, unspecified; E03.9 Hypothyroidism, unspecified; I35.0 Nonrheumatic aortic (valve) stenosis; I48.91 Unspecified atrial fibrillation; R11.0 Nausea; K80.80 Other cholelithiasis without obstruction
CPT/HCPCS: 36415; 70450-TC; 71010-TC; 76700-TC; 78452-TC; 78582-TC; 80048; 80053; 80061; 80076; 82150; 82248; 82550; 82553; 83036; 83605; 83690; 83721; 83735; 84100; 84439; 84443; 84481; 84484; 85025; 85027; 85379; 85610; 85651; 86140; 93005; 93010; 93017; 93306-TC; 93970-TC; 97116-GP; 97161-GP; 99284-25; A9502; A9539; A9540

== ENCOUNTER 2017-03-06 07:19 | Emergency (ER) | payer OTHER, BC ==
[2017-03-06] MEDS ORDERED: ASPIRIN 325 MG TABLET PO ONE (07:37)
[2017-03-06 07:40] VITALS: TEMP 97.5; BMI 31.9
--- NOTE | 2017-03-06 08:03 | PDOC ---
History of Present Illness - General History Source: Patient - History of Present Illness Timing/Duration: other Associated Symptoms: reports: malaise, nausea/vomiting. denies: chest pain, diaphoresis, fever/chills, shortness of breath <Alexei Norton - Last Filed: 03/06/17 09:32> <Renzo Zaman - Last Filed: 03/06/17 09:39> - General Chief Complaint: Chest Pain Stated Complaint: CHEST PAIN Time Seen by Provider: 03/06/17 07:34 Past History - Past Medical History Anemia: Yes Cardiac Disorders: Yes (A FIB) COPD: No CHF: Yes HTN: Yes Thyroid Disease: Yes (GOITER) - Surgical History Appendectomy: Yes Cholecystectomy: Yes - Immunization History Td Vaccination: Yes Immunization Up to Date: (UNKNOWN) - Suicide/Smoking/Psychosocial Hx Smoking Status: No Smoking History: Never smoked Have you smoked in the past 12 months: No Number of Cigarettes Smoked Daily: 0 Hx Alcohol Use: No Drug/Substance Use Hx: No Substance Use Type: None Hx Substance Use Treatment: No <Alexei Norton - Last Filed: 03/06/17 09:32> <Renzo Zaman - Last Filed: 03/06/17 09:39> - Past Medical History Allergies/Adverse Reactions: Allergies Allergy/AdvReac Type Severity Reaction Status Date / Time Iodinated Contrast- Oral and Allergy Unknown Hives Verified 03/06/17 07:40 IV Dye morphine Allergy Nausea for Verified 03/06/17 07:40 long periods IV Contrast dyes Allergy Hives Uncoded 03/06/17 07:40 Home Medications: Ambulatory Orders Latanoprost 0.005% Eye Drops [Xalatan 0.005% Eye Drops -] 0 drop ASDIR 09/17/16 Amlodipine Besylate [Norvasc -] 10 mg PO DAILY #30 tablet 09/22/16 Warfarin Na [Coumadin -] 5 mg PO DAILY@1800 tablet 09/22/16 Metoprolol Succinate [Toprol XL -] 25 mg PO DAILY 10/28/16 Aspirin [ASA -] 81 mg PO DAILY #30 tab.chew 10/31/16 Atorvastatin Ca [Lipitor] 40 mg PO HS #30 tablet 10/31/16 Polyethylene Glycol 3350 [Miralax 119 gm Btl -] 17 gm PO DAILY #1 bottle Sennosides [Senna -] 2 tab PO HS #20 tablet 10/31/16 Torsemide [Demadex -] 20 mg PO PRN PRN #20 tablet MDD 1 10/31/16 Valsartan [Diovan] 320 mg PO DAILY tablet 10/31/16 Review of Systems - Review of Systems Constitutional: Yes: Malaise. No: Fever Respiratory: No: Cough, Shortness of Breath Cardiac (ROS): No: Chest Pain ABD/GI: Yes: Nausea. No: Constipated, Diarrhea, Vomiting : No: Dysuria <Alexei Norton - Last Filed: 03/06/17 09:32> *Physical Exam - Vital Signs Last Vital Signs Temp Pulse Resp BP Pulse Ox 97.5 F L 63 16 165/69 96 03/06/17 07:20 03/06/17 07:20 03/06/17 07:20 03/06/17 07:20 03/06/17 07:20 - Physical Exam General Appearance: Yes: Appropriately Dressed. No: Apparent Distress HEENT: positive: Normal Voice Neck: positive: Supple Respiratory/Chest: positive: Lungs Clear, Normal Breath Sounds. negative: Respiratory Distress Cardiovascular: positive: Regular Rate, S1, S2 Gastrointestinal/Abdominal: positive: Soft. negative: Tender Extremity: positive: Normal Inspection. negative: Pedal Edema Integumentary: positive: Dry, Warm Neurologic: positive: Fully Oriented, Alert, Normal Mood/Affect <Alexei Norton - Last Filed: 03/06/17 09:32> - Vital Signs Last Vital Signs Temp Pulse Resp BP Pulse Ox 97.5 F L 63 16 165/69 96 03/06/17 07:20 03/06/17 07:20 03/06/17 07:20 03/06/17 07:20 03/06/17 07:20 <Renzo Zaman - Last Filed: 03/06/17 09:39> Heart Score/ECG Review - ECG Impressions Comment:: 03/06/17 09:38 Twelve-lead EKG was performed and reviewed by me. There is irregularly irregular rate of 59 LAFB LVH QRS interval of 124 <Renzo Zaman - Last Filed: 03/06/17 09:39> ED Treatment Course - LABORATORY CBC & Chemistry Diagram: 03/06/17 08:00 03/06/17 08:00 - RADIOLOGY Radiology Studies Ordered: Category Date Time Status CHEST X-RAY PORTABLE* [RAD] Stat Radiology 03/06/17 07:38 Ordered <Alexei Norton - Last Filed: 03/06/17 09:32> - LABORATORY CBC & Chemistry Diagram: 03/06/17 08:00 03/06/17 08:00 - ADDITIONAL ORDERS Additional order review: Laboratory Results 03/06/17 03/06/17 08:00 08:00 Sodium 142 Potassium 4.0 Chloride 106 Carbon Dioxide 24 Anion Gap 12 BUN 18 Creatinine 1.0 Creat Clearance w eGFR 52.82 Random Glucose 100 Calcium 8.6 Total Bilirubin 1.4 H AST 24 ALT 20 Alkaline Phosphatase 60 Creatine Kinase 137 Troponin I 0.06 H B-Natriuretic Peptide 1842.86 H Total Protein 6.7 Albumin 3.4 03/06/17 08:00 RBC 4.82 MCV 88.1 MCHC 32.6 RDW 13.8 MPV 9.1 Neutrophils % 77.9 D Lymphocytes % 14.5 D Monocytes % 5.4 Eosinophils % 1.4 Basophils % 0.8 - Medications Given in the ED: ED Medications Discontinued Medications Generic Name Dose Route Start Last Admin Trade Name Freq PRN Reason Stop Dose Admin Aspirin 325 mg 03/06/17 07:37 03/06/17 08:11 Asa - PO 03/06/17 07:38 325 mg ONCE ONE Administration <AustynRenzo - Last Filed: 03/06/17 09:39> Medical Decision Making - Medical Decision Making 03/06/17 07:58 86 yo F, h/o COPD, HBV, afib on coumadin, mod , chronic STEVENSON, TIA, 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 States symptoms similar to when she suffered an PR. Denies CP, SOB, diaphoresis or vomiting. No and pain, change in BM, dysuria, f/c See exam Nausea and malaise Admitted for similar symptoms 11/03 w/ elevated troponin and tx for NSTEMI ( stress test w/ "fixed anterioapical defect w/ small area of reversible ischemia "-no cath was indicated per cards at the time, was medically managed) No CP/SOB Stable in ED w/ rate controlled afib on EKG, on coumadin -ASA -labs -CXR -discuss dispo w/ Dr Liu (cards) 03/06/17 08:39 Case d/w Dr Giang (coverage for Dr Liu), recommending admitting based on RFs and heart score. States pt will m/l need a cath during this admission 03/06/17 09:06 Trop 0.06 w/ BNP >1800. Bassed on chart review, pt usually makes trops. Pt continue to have no CP or SOB at this time and appears well and currently stable on monitor. States she is no longer nauseous. Tropinemia possibly 2/2 demand ischemia. No e/o fluid overload clinically and will hold off on lasix at this time. Pt given asa. Will recontact [facility] for further recs and admit 03/06/17 09:12 Dr Giang aware of mildly elevated trop, states no recommendations at this time. Will come see this am 03/06/17 09:32 Case d/w Dr Laboy and pt admitted <Alexei Norton - Last Filed: 03/06/17 09:32> - Medical Decision Making 03/06/17 09:39 The patient was seen and evaluated in conjunction with SHIVAM Norton under my direct supervision, ancillary studies were reviewed. I agree with the plan as outlined by SHIVAM Norton . <Renzo Zaman - Last Filed: 03/06/17 09:39> *DC/Admit/Observation/Transfer - Discharge Dispostion Admit: Yes <Alexei Norton - Last Filed: 03/06/17 09:32> <Renzo Zaman - Last Filed: 03/06/17 09:39> Diagnosis at time of Disposition: Nausea - Discharge Dispostion Condition at time of disposition: Good - Referrals Referrals: Severiano Liu MD [Primary Care Provider] -
[2017-03-06] MEDS ORDERED: ASPIRIN 325 MG TABLET ONE (08:06)
[2017-03-06 08:12] LABS: BASOPHIL 0.8 % (0-2.0); EOSINOPHIL 1.4 % (0-4.5); MCH 28.7 pg (25.7-33.7); MCHC 32.6 g/dl (32.0-36.0); MEAN CELL VOLUME 88.1 fl (80-96); MEAN PLT VOLUME 9.1 fl (7.5-11.1); NEUTROPHILS 77.9 % (42.8-82.8); PLATELET COUNT 232 K/MM3 (134-434); RDW 13.8 % (11.6-15.6); WHITE BLOOD COUNT 9.5 K/mm3 (4.0-10.0)
[2017-03-06 08:46] LABS: ALBUMIN 3.4 g/dl (3.4-5.0); ANION GAP 12 (8-16); CALCIUM 8.6 mg/dL (8.5-10.1); CO2 24 mmol/L (21-32); GLUCOSE,RANDOM 100 mg/dL (74-106); SGPT/ALT 20 U/L (12-78)
[2017-03-06 08:50] LABS: ALK PHOS 60 U/L (45-117); BILIRUBIN,TOTAL 1.4 mg/dL (0.2-1.0); TOT PROT 6.7 g/dl (6.4-8.2); TROPONIN I 0.06 ng/ml (0.00-0.05)
[2017-03-06 08:58] LABS: CPK 137 IU/L (26-192); SGOT/AST 24 U/L (15-37)
--- NOTE | 2017-03-06 09:57 | EKG ---
Test Reason : Blood Pressure : / mmHG Vent. Rate : 059 BPM Atrial Rate : 111 BPM P-R Int : 000 ms QRS Dur : 124 ms QT Int : 450 ms P-R-T Axes : 000 -55 059 degrees QTc Int : 445 ms ATRIAL FIBRILLATION WITH SLOW VENTRICULAR RESPONSE LEFT ANTERIOR FASCICULAR BLOCK LEFT VENTRICULAR HYPERTROPHY WITH QRS WIDENING ABNORMAL ECG WHEN COMPARED WITH ECG OF 29-OCT-2016 10:13, NO SIGNIFICANT CHANGE WAS FOUND Confirmed by CHERELLE CATES MD ([id number]) on 03/06/2017 9:56:42 AM Referred By: Confirmed By:CHERELLE CATES MD
[2017-03-06] MEDS ORDERED: ONDANSETRON 4 MG/2 ML VIAL IVPUSH ONE (11:09)
[2017-03-06 11:23] LABS: URINE APPEARANCE SLCLOUDY; URINE BILIRUBIN NEGATIVE (NEGATIVE); URINE BLOOD NEGATIVE (NEGATIVE); URINE COLOR LTYELLOW; URINE GLUCOSE (UA) NEGATIVE (NEGATIVE); URINE KETONE NEGATIVE (NEGATIVE); URINE NITRITE NEGATIVE (NEGATIVE); URINE PROTEIN NEGATIVE (NEGATIVE); URINE UROBILINOGEN NEGATIVE mg/dL (0.2-1.0)
[2017-03-06] MEDS ORDERED: ONDANSETRON 4 MG/2 ML VIAL ONE (11:37)
[2017-03-06] MEDS ORDERED: ONDANSETRON 4 MG TABLET PO ONE (11:52)
[2017-03-06] MEDS ORDERED: ONDANSETRON *ODT* 4 MG TABLET ONE (11:58)
--- NOTE | 2017-03-06 11:59 | PN ---
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 She has arrived with C/o nausea for 4 days, atypical anterior chest pain non radiating, similar to her "heart attack"(2016) , and SOB. She denies diaphoresis, or vomiting. Her symptoms have subsided since her arrival except for nausea. she has had multiple admissions with similar symptoms She is alert / O X3 / NAD Vital Signs Period Temp Pulse Resp BP Sys/Menjivar Pulse Ox Last 24 Hr 97.5 F 63 16 165/69 96 reports episodes of "high Bp" at home unable to provide readings but now feeling better. Requesting to go home. States has been seen by Cardio in the ER and if follow up bloods are negative she is able to go home. neck - jvd heart S1/S2 irr / irr lungs clear bilat abd soft no guarding / no tenderness ext FROM no edema CBC, BMP 03/06/17 08:00 03/06/17 08:00 BMP 1842 TNI 0.06 EKG A fib/ LVH (similar CXR no change from prior stufy no CHF / or infiltrates # atypical chest pain Extensive Cardiac HX - well know to Dr Liu's group multiple hospitalizations for similar complaints --always has elevated BMP thorough cardiac work up in the recent past await follow up cardiac enzymes and Cardiology opinion # Nausea Tx with Zofran and trial of PO Known to have Cholecystitis GI work up and low fat diet as out patient # A fib continue coumadin # COPD "always" has baseline STEVENSON / poor execise tolerance to continue Out patient management for COPD Plan follow serial EKG / TNI / Cardiac opinion if d/c home will follow up on Thursday
--- NOTE | 2017-03-06 12:02 | CON.CARD ---
Cardiology Consult (text) - Consultation Consultation Note: cc: nausea hpi: 86 f hx dchf, htn, afib, dvts, hep b, nstemi 10/2016 (med rx) sent from [facility] for nausea. For years has intermittent episodes of n/v/lack of appetite. Same sxs occurred past few days. No cp, sob, palps, dizzy, loc, pnd, orthopnea , le edema. Asking to go home. Sees dr floyd for cardio. pmh: per hpi psh: appendectomy, hysterectomy social: no tob fam: no premature cad, scd ros: per hpi; no fever, cough, nasal congestion, PHILIPPE, vision changes, rash, gib , hematuria, dysuria meds: Home Medications Medication Instructions Recorded Latanoprost 0.005% Eye Drops 0 drop ASDIR 09/17/16 [Xalatan 0.005% Eye Drops -] Amlodipine Besylate [Norvasc -] 10 mg PO DAILY #30 tablet 09/22/16 Warfarin Na [Coumadin -] 5 mg PO DAILY@1800 tablet 09/22/16 Metoprolol Succinate [Toprol XL -] 25 mg PO DAILY 10/28/16 Aspirin [ASA -] 81 mg PO DAILY #30 tab.chew 10/31/16 Atorvastatin Ca [Lipitor] 40 mg PO HS #30 tablet 10/31/16 Polyethylene Glycol 3350 [Miralax 17 gm PO DAILY #1 bottle 10/31/16 119 gm Btl -] Sennosides [Senna -] 2 tab PO HS #20 tablet 10/31/16 Torsemide [Demadex -] 20 mg PO PRN PRN #20 tablet MDD 1 10/31/16 Valsartan [Diovan] 320 mg PO DAILY tablet 10/31/16 pe: Vital Signs Period Temp Pulse Resp BP Sys/Menjivar Pulse Ox Last 24 Hr 97.5 F 63 16 165/69 96 nad no jvd irreg s1s2 no mrg cta bl nl eff aaox3 no le e/c/c abd nt nd pos bs no jaundice diaphoresis pos dp pt no carotid bruits Laboratory Last Values WBC 9.5 K/mm3 (4.0-10.0) D 03/06/17 08:00 RBC 4.82 M/mm3 (3.60-5.2) 03/06/17 08:00 Hgb 13.9 GM/dL (10.7-15.3) 03/06/17 08:00 Hct 42.5 % (32.4-45.2) 03/06/17 08:00 MCV 88.1 fl (80-96) 03/06/17 08:00 MCH 28.7 pg (25.7-33.7) 03/06/17 08:00 MCHC 32.6 g/dl (32.0-36.0) 03/06/17 08:00 RDW 13.8 % (11.6-15.6) 03/06/17 08:00 Plt Count 232 K/MM3 (134-434) 03/06/17 08:00 MPV 9.1 fl (7.5-11.1) 03/06/17 08:00 Neutrophils % 77.9 % (42.8-82.8) D 03/06/17 08:00 Lymphocytes % 14.5 % (8-40) D 03/06/17 08:00 Monocytes % 5.4 % (3.8-10.2) 03/06/17 08:00 Eosinophils % 1.4 % (0-4.5) 03/06/17 08:00 Basophils % 0.8 % (0-2.0) 03/06/17 08:00 Sodium 142 mmol/L (136-145) 03/06/17 08:00 Potassium 4.0 mmol/L (3.5-5.1) 03/06/17 08:00 Chloride 106 mmol/L (98-107) 03/06/17 08:00 Carbon Dioxide 24 mmol/L (21-32) 03/06/17 08:00 Anion Gap 12 (8-16) 03/06/17 08:00 BUN 18 mg/dL (7-18) 03/06/17 08:00 Creatinine 1.0 mg/dL (0.55-1.02) 03/06/17 08:00 Creat Clearance w eGFR 52.82 (>60) 03/06/17 08:00 Random Glucose 100 mg/dL (74-106) 03/06/17 08:00 Calcium 8.6 mg/dL (8.5-10.1) 03/06/17 08:00 Total Bilirubin 1.4 mg/dL (0.2-1.0) H 03/06/17 08:00 AST 24 U/L (15-37) 03/06/17 08:00 ALT 20 U/L (12-78) 03/06/17 08:00 Alkaline Phosphatase 60 U/L (45-117) 03/06/17 08:00 Creatine Kinase 137 IU/L (26-192) 03/06/17 08:00 Troponin I 0.06 ng/ml (0.00-0.05) H 03/06/17 08:00 B-Natriuretic Peptide 1842.86 pg/ml (5-450) H 03/06/17 08:00 Total Protein 6.7 g/dl (6.4-8.2) 03/06/17 08:00 Albumin 3.4 g/dl (3.4-5.0) 03/06/17 08:00 Urine Color Ltyellow 03/06/17 10:20 Urine Appearance Slcloudy 03/06/17 10:20 Urine pH 5.0 (5.0-8.0) 03/06/17 10:20 Ur Specific [place] 1.010 (1.001-1.035) 03/06/17 10:20 Urine Protein Negative (NEGATIVE) 03/06/17 10:20 Urine Glucose (UA) Negative (NEGATIVE) 03/06/17 10:20 Urine Ketones Negative (NEGATIVE) 03/06/17 10:20 Urine Blood Negative (NEGATIVE) 03/06/17 10:20 Urine Nitrite Negative (NEGATIVE) 03/06/17 10:20 Urine Bilirubin Negative (NEGATIVE) 03/06/17 10:20 Urine Urobilinogen Negative mg/dL (0.2-1.0) 03/06/17 10:20 ecg 03/06/17: afib rate controlled, lvh, no ischemic changes, nl qtc similar to priors cxr: clear lungs echo 08/2016: nl lv/rv, 1+ lae, mod (3.3 m/s, 44/27), 1+ mr, 1+ phtn echo 11/03: nl lvef, rv tds, mod fallon, mild mr, mod as, mild-mod AR, mod-sev tr, rvsp 40-50 MIBI 03/04 (lala): no STs; no isch (variable breast); nl EF; no LVE/TID a/p: hpi: 86 f hx dchf, htn, afib, dvts, hep b, nstemi 10/2016 (med rx) sent from [facility] for nausea. nausea: -this episode of symptoms seems GI related. -no suspicion for acs at present -ecg w/o ischemic changes, ce's negx1 -would check one more set of ce's and if remain in same range then ok for dc today from cardiac pov -Continued GI eval. nstemi 10/2016: -plan as above -recent echo shows nl lvef -mibi at time of nstemi was low risk study (possible mild anteroapical ischemia) -->med management of cad -cont home asa, statin, bb, arb mod /chronic diastolic chf -on torsemide 20 mg prn as outpatient -stable, no vol overload. -routine outpt monitoring of htn: -cont home meds afib: -rate controlled on bb -on ac with coumadin
--- NOTE | 2017-03-06 14:23 | PDOC ---
*Physical Exam - Vital Signs Last Vital Signs Temp Pulse Resp BP Pulse Ox 97.5 F L 63 16 165/69 96 03/06/17 07:20 03/06/17 07:20 03/06/17 07:20 03/06/17 07:20 03/06/17 07:20 - Physical Exam Comments: 03/06/17 14:22 GENERAL: Awake, alert, and fully oriented, in no acute distress HEAD: No signs of trauma, normocephalic, atraumatic EYES: PERRLA, EOMI, sclera anicteric, conjunctiva clear ENT: hearing grossly normal, nares patent, oropharynx clear without exudates. Moist mucosa NECK: Normal ROM, supple, no JVD, or masses LUNGS: No distress, speaks full sentences, clear to auscultation bilaterally HEART: Regular rate and rhythm, normal S1 and S2, no murmurs, rubs or gallops, peripheral pulses normal and equal bilaterally. EXTREMITIES : Normal inspection, Normal range of motion, no edema. No clubbing or cyanosis. NEUROLOGICAL: Cranial nerves II through XII grossly intact. Normal speech, normal gait, no focal sensorimotor deficits SKIN: Warm, Dry, normal turgor, no rashes or lesions noted. ED Treatment Course - LABORATORY CBC & Chemistry Diagram: 03/06/17 08:00 03/06/17 08:00 - ADDITIONAL ORDERS Additional order review: Laboratory Results 03/06/17 03/06/17 08:00 08:00 Sodium 142 Potassium 4.0 Chloride 106 Carbon Dioxide 24 Anion Gap 12 BUN 18 Creatinine 1.0 Creat Clearance w eGFR 52.82 Random Glucose 100 Calcium 8.6 Total Bilirubin 1.4 H AST 24 ALT 20 Alkaline Phosphatase 60 Creatine Kinase 137 Troponin I 0.06 H B-Natriuretic Peptide 1842.86 H Total Protein 6.7 Albumin 3.4 03/06/17 08:00 RBC 4.82 MCV 88.1 MCHC 32.6 RDW 13.8 MPV 9.1 Neutrophils % 77.9 D Lymphocytes % 14.5 D Monocytes % 5.4 Eosinophils % 1.4 Basophils % 0.8 - Medications Given in the ED: ED Medications Discontinued Medications Generic Name Dose Route Start Last Admin Trade Name Freq PRN Reason Stop Dose Admin Aspirin 325 mg 03/06/17 07:37 03/06/17 08:11 Asa - PO 03/06/17 07:38 325 mg ONCE ONE Administration Ondansetron HCl 4 mg 03/06/17 11:09 03/06/17 11:56 Zofran Injection IVPUSH 03/06/17 11:10 Not Given ONCE ONE Ondansetron HCl 4 mg 03/06/17 11:52 03/06/17 12:18 Zofran - PO 03/06/17 11:53 4 mg ONCE ONE Administration Medical Decision Making - Medical Decision Making 03/06/17 14:25 86 yo F wit h/o COPD, afib on coumadin, TIA, 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 Similar symptoms to prior CA. Denies CP, SOB, diaphoresis. Physical exam benign. Recieved handoff from Alexei LANGLEY. Pt. wishes to sign out AMA Pt. case was initially discussed with Dr. agee with plan to admit based on risk factors and heart score. However, patient has baseline elevated trops, chronic nature of symptoms , and is stable at this time. Will D/c if second trop normal. 03/06/17 16:16 Repeat trop and cardiac enzymes unremarkable. Pt is stable and adamant about leaving hospital. Advised to follow up with cardiology and PCP within the next week with strict return precautions. *DC/Admit/Observation/Transfer Diagnosis at time of Disposition: Nausea - Discharge Dispostion Disposition: HOME Condition at time of disposition: Good Admit: No - Referrals - Patient Instructions - Post Discharge Activity - Attestations Physician Attestion: 03/06/17 16:16 I attest to the information provided in this note.
[2017-03-06 15:52] LABS: TROPONIN I 0.06 ng/ml (0.00-0.05)
[2017-03-06 16:19] VITALS: BP 149/59; PULSE 65
[2017-03-06 20:26] LABS: URINE LEUK ESTERASE TRACE (NEGATIVE)
[2017-03-06 23:11] LABS: URINE RBC 0-3 /hpf (0-3)
[2017-03-06 23:12] LABS: URINE BACTERIA MODERATE /hpf (NEGATIVE)
== END 2017-03-06 11:53 | disposition home or self-care (01) ==
LOC: JER 07:19 → UNDOADMIN 09:31 → JERBED 09:31 → JER 11:53 → UNDODISIN 16:25
DX: R11.0 Nausea (principal); I25.2 Old myocardial infarction; I10 Essential (primary) hypertension; I48.91 Unspecified atrial fibrillation; Z79.01 Long term (current) use of anticoagulants; Z79.82 Long term (current) use of aspirin; J44.9 Chronic obstructive pulmonary disease, unspecified
CPT/HCPCS: 36415; 71010-TC; 80053; 81003; 81015; 82550; 82553; 83880; 84484; 85025; 93005; 93010; 99283-25

== ENCOUNTER 2017-11-27 10:03 | Emergency (ER) | payer OTHER, BC ==
--- NOTE | 2017-11-27 10:12 | PDOC ---
History of Present Illness - General Chief Complaint: Pain, Acute Stated Complaint: ABD PAIN Time Seen by Provider: 11/27/17 10:11 History Source: Patient Exam Limitations: No Limitations - History of Present Illness Initial Comments: Pt, with PMH of A-fib (on xarelto), diastolic CHF (preserved EF), TIA, DVT/PE, HTN, HLD, aortic stenosis, and [place], presents with constipation x2-3 weeks. The pt states over the past few months she has noticed changes in stool burden and has been more constipated than usual. 3 weeks ago, the pt noticed only small balls of stool, with bright red blood in the toilet after straining. Over the past 2 weeks, the pt states she has not passed any bowel movements, and had decreased flatulence and decreased urgency to pass stool. She has tried senna, 2 enemas, and 1 box of rectal suppositories without relief. She lives in [address] [place] [address] and saw the [place] physician 10 days ago, who told her to come to the ER due to constipation, which the pt refused. She has had increased abdominal distension, nausea, and belching. She has had decreased food intake but is tolerating oral fluids. She denies fevers/chills, vomiting, chest pain, SOB, abdominal pain, urinary symptoms, diarrhea, or leg swelling. 11/27/17 17:29 Past History - Travel Traveled outside of the country in the last 30 days: No Close contact w/someone who was outside of country & ill: No - Past Medical History Allergies/Adverse Reactions: Allergies Allergy/AdvReac Type Severity Reaction Status Date / Time Iodinated Contrast- Oral and Allergy Unknown Hives Verified 03/06/17 07:40 IV Dye morphine Allergy Nausea for Verified 03/06/17 07:40 long periods IV Contrast dyes Allergy Hives Uncoded 03/06/17 07:40 Home Medications: Ambulatory Orders Latanoprost 0.005% Eye Drops [Xalatan 0.005% Eye Drops -] 1 drop OU HS 09/17/16 Amlodipine Besylate [Norvasc -] 2.5 mg PO DAILY 11/27/17 Atorvastatin Ca [Lipitor] 40 mg PO HS 11/27/17 Gabapentin [Neurontin -] 300 mg PO TID 11/27/17 Nitroglycerin 0.3 mg SL ASDIR PRN 11/27/17 Olmesartan Medoxomil [Benicar (Nf)] 40 mg PO DAILY 11/27/17 Polyethylene Glycol 3350 [Miralax (For Daily Use) -] 17 gm PO DAILY PRN #1 bottle 11/27/17 Psyllium Husk (with Sugar) [Metamucil Packet] 3.4 gm PO DAILY #30 packet Rivaroxaban [Xarelto -] 15 mg PO DAILY 11/27/17 Anemia: Yes Cardiac Disorders: Yes (A FIB) COPD: No CHF: Yes DVT: Yes Diabetes: No GI Disorders: No HTN: Yes Hypercholesterolemia: Yes Thyroid Disease: Yes (GOITER) - Surgical History Abdominal Surgery: Yes (ovarian cyst removal, hysterectomy) Appendectomy: Yes Cholecystectomy: Yes - Immunization History Td Vaccination: Yes Immunization Up to Date: (UNKNOWN) - Suicide/Smoking/Psychosocial Hx Smoking Status: No Smoking History: Never smoked Have you smoked in the past 12 months: No Number of Cigarettes Smoked Daily: 0 Hx Alcohol Use: No Drug/Substance Use Hx: No Substance Use Type: None Hx Substance Use Treatment: No Review of Systems - Review of Systems Able to Perform ROS?: Yes Is the patient limited Portuguese proficient: No Constitutional: Yes: Weight Stable. No: Chills, Diaphoresis, Fever, Loss of Appetite HEENTM: No: Recent change in vision, Double Vision, Hearing Loss, Throat Swelling, Difficulty Swallowing Respiratory: No: Cough, Orthopnea, Shortness of Breath Cardiac (ROS): No: Chest Pain, Edema, Irregular Heart Rate, Lightheadedness, Palpitations, Syncope, Chest Tightness ABD/GI: Yes: Abdominal Distended, Abd. Pain w/ defecation, Blood Streaked Bowels , Constipated, Nausea, Poor Appetite, Rectal Bleeding. No: Diarrhea, Difficulty Swallowing, Poor Fluid Intake, Vomiting, Indigestion, Abdominal cramping, Tarry Stools : No: Burning, Dysuria, Frequency, Hematuria, Pain, Urgency Musculoskeletal: No: Back Pain, Joint Pain Integumentary: No: Bruising, Rash Neurological: No: Headache, Seizure, Weakness, Unsteady Gait, Ataxia, Dizziness Psychiatric: No: Sleep Pattern Change, Change in Appetite Endocrine: No: Increased Urine, Change in Weight Hematologic/Lymphatic: No: Anemia, Blood Clots, Easy Bleeding, Easy Bruising All Other Systems: Reviewed and Negative *Physical Exam - Physical Exam General Appearance: Yes: Nourished, Appropriately Dressed, Obese. No: Apparent Distress HEENT: positive: EOMI, DAYAN, Normal ENT Inspection, Normal Voice, Symmetrical, Pharynx Normal, Hearing Grossly Normal. negative: Scleral Icterus (R), Scleral Icterus (L), Pharyngeal Erythema, Tonsillar Exudate, Tonsillar Erythema Neck: positive: Trachea midline, Normal Thyroid, Supple. negative: Tender, Rigid, Lymphadenopathy (R), Lymphadenopathy (L), Rigidity Respiratory/Chest: positive: Lungs Clear, Normal Breath Sounds. negative: Chest Tender, Respiratory Distress, Accessory Muscle Use, Crackles Cardiovascular: positive: Regular Rhythm, Regular Rate, S1, S2. negative: Edema , JVD, Murmur Vascular Pulses: Dorsalis-Pedis (R): 4+, Doralis-Pedis (L): 4+ Gastrointestinal/Abdominal: positive: Flat, Soft, Increased Bowel Sounds, Protuberent. negative: Normal Bowel Sounds (hyperactive bowel sounds), Tender ( non-tender. abdominal exam produced nausea. ), Organomegaly, Pulsatile Mass, Distended, Guarding, Rebound, Tenderness, Mass (no stool burdern palpated) Rectal Exam: positive: heme negative stool, normal rectal tone, hemorrhoids ( hemorrhoids, no pain with exam, no rectal bleeding). negative: normal exam, melena, decreased tone, heme positive stool Lymphatic: negative: Adenopathy, Tenderness Musculoskeletal: positive: Normal Inspection. negative: CVA Tenderness Extremity: positive: Normal Capillary Refill, Normal Inspection, Normal Range of Motion, Pelvis Stable. negative: Tender, Pedal Edema Integumentary: positive: Normal Color, Dry, Warm. negative: Cold, Clammy, Diaphoresis Neurologic: positive: seat nailer II-XII NML intact, Fully Oriented, Alert, Normal Mood/ Affect, Normal Response, Motor Strength 5/5 ED Treatment Course - LABORATORY CBC & Chemistry Diagram: 11/27/17 11:30 11/27/17 11:30 - RADIOLOGY Radiology Studies Ordered: CT abd/pelvis, non-contrast HISTORY PROVIDED: Constipation, rule out obstruction TECHNIQUE: Sequential axial images were obtained from the domes of the diaphragm through the symphysis pubis following the administration of oral contrast material. The lung rodriguez are clear. The heart is slightly enlarged with a trace pericardial effusion present. The liver, spleen, pancreas and adrenal glands demonstrate no significant abnormalities. Multiple gallstones are identified within the gallbladder. It is somewhat atrophic with no evidence of hydronephrosis or acute pathology. There is no evidence of intra-abdominal or retroperitoneal lymphadenopathy or fluid collections. There is no evidence of pneumoperitoneum, bowel obstruction or intra-abdominal abscess. There is no CT evidence of acute appendicitis or diverticulitis. There is an amorphous appearance to the left colon and the possibility of colitis cannot be excluded. Clinical correlation and colonoscopic follow-up is recommended. Examination of the pelvis is limited due to artifact from the patient's bilateral hip prostheses. There is no evidence of pelvic masses, fluid collections or lymphadenopathy. There is no evidence of acute bony abnormalities. IMPRESSION: Questionable left-sided colitis. No evidence of bowel obstruction or acute pathology within the abdomen or pelvis. Please see above discussion. 11/27/17 16:42 Medical Decision Making - Medical Decision Making Pt seen at bedside, also seen by Dr. Zaman. Pt states she has not had BM "in 3 weeks," and has had minimal urge to defecate. She denies flatulence or vomiting , but she has had belching and nausea. Bright red blood in stool 3 weeks ago "that filled the toilet". Ordered CBC, CMP, lactic, lipase, UA to r/o infection. Pt currently afebrile, and not complaining of pain, only discomfort and distension. Ordered upright and flat abdominal x-ray to look for stool burden. No masses or stool burden was palpated due to pt body habitus. Will pursue CT abd/pelvis if no stool burden is observed. 11/27/17 11:22 Stool burden seen on descending colon on x-ray. Will provide Mag citrate to see if pt can have bowel movement in the ER. If no stool passed, we will order CT abd/pelvis non-contrast to r/o obstructive process. Pt still appears well. 11/27/17 12:42 Pt took Mg Citrate 15 minutes ago, will reassess for BM. 11/27/17 13:56 Pt continues to have no BM after 1 hour. Will order non-contrast CT of abd/ pelvis (pt allergic to contrast - has full hives). 11/27/17 14:[address] read. Pt still lying comfortably with no BM. 11/27/17 16:26 Pt had 1 BM of loose brown stool. Ct showed questionable L-sided colitis. No obstruction. Pt will be discharged back to [facility], with follow-up with PCP and GI (Dr. Iniguez). Pt needs outpatient colonoscopy. Will also provide Metamucil for bulking and Miralax. 11/27/17 16:42 *DC/Admit/Observation/Transfer Diagnosis at time of Disposition: Constipation Qualifiers: Constipation type: unspecified constipation type Qualified Code(s): K59.00 - Constipation, unspecified - Discharge Dispostion Disposition: DETENTION FACILITY Condition at time of disposition: Improved Decision to Admit order: No - Prescriptions Prescriptions: Polyethylene Glycol 3350 [Miralax (For Daily Use) -] 17 gm PO DAILY PRN #1 bottle PRN Reason: Constipation Psyllium Husk (with Sugar) [Metamucil Packet] 3.4 gm PO DAILY #30 packet - Referrals Referrals: Iam Rodriguez MD [Staff Physician] - Juan David Deleon MD [Staff Physician] - - Patient Instructions Printed Discharge Instructions: DI for Constipation Additional Instructions: You were seen in the ER for constipation, and were able to have a bowel movement after medication. The imaging of your abdomen showed no obstruction. Please follow-up with your primary care doctor, and see Dr. Deleon in Gastroenterology to schedule a colonoscopy. Please return to the ER if you have fevers or chills, vomiting, worsening constipation, or any other concerns. We have sent metamucil (1 packet per day) and miralax (1 individual packet as needed) for stool bulking and constipation. - Post Discharge Activity
[2017-11-27 10:38] VITALS: TEMP 97.9; BMI 31.3
--- NOTE | 2017-11-27 10:55 | PDOC ---
Attending Attestation - Resident Resident Name: Tameka Bahena - ED Attending Attestation I have performed the following: I have examined & evaluated the patient, The case was reviewed & discussed with the resident, I agree w/resident's findings & plan, Exceptions are as noted - HPI HPI: 11/27/17 10:49 87y F hx of afib on xerolto, chf, htn, hl, cad s/p mi, hyperthyroidism, dvt, tia , presents with constipation and abdominal discomfort. Has been having small bms a few weeks ago, but states she has been unable to have a BM since then, she did an enema 2 days ago and small pencil thin stools but non since then. Denies any abd pain, urgency to go hav ea BM, vomiting, cp, sob, fever/chills. pt does endorse some rectal bleeding a few weeks ago with stooling, but non since then. last colonscopy many years ago. on exam pt has an obese abdomen, soft slightly tender in the LUQ no stool on rectal exam per resident exam concern for possible mass vs consipation will obtain blood work KUB/abdomen - Physicial Exam PE: 11/29/17 16:09 se above - Medical Decision Making labs reviewed, unremarkble CT abdomen reviwed, no obstruction ?colitis - hoewver pts not sugestive of colitis - will defer treatment stephan dc with pmd fu return precautions were discussed Heart Score/ECG Review - ECG Impressions Comment:: 11/27/17 11:28 Twelve-lead EKG was performed and reviewed by me. Rate is irregularly irregular Rate of 68 Left anterior fascicular block Impression A. fib
[2017-11-27 11:41] LABS: BASO % 0.9 % (0-2.0); EOS % 1.1 % (0-4.5); HEMATOCRIT 40.2 % (32.4-45.2); HEMOGLOBIN 13.6 GM/dL (10.7-15.3); LYMPH % 17.2 % (8-40); MCH 29.6 pg (25.7-33.7); MCHC 33.9 g/dl (32.0-36.0); MEAN CELL VOLUME 87.5 fl (80-96); MEAN PLT VOLUME 8.9 fl (7.5-11.1); MONO % 6.3 % (3.8-10.2); NEUT % 74.5 % (42.8-82.8); PLATELET COUNT 223 K/MM3 (134-434); RBC 4.59 M/mm3 (3.60-5.2); RDW 13.9 % (11.6-15.6); WHITE BLOOD COUNT 8.4 K/mm3 (4.0-10.0)
[2017-11-27 11:45] LABS: URINE APPEARANCE CLEAR; URINE BILIRUBIN NEGATIVE (<2.0 mg/dL); URINE COLOR STRAW; URINE GLUCOSE (UA) NEGATIVE (NEGATIVE); URINE KETONE NEGATIVE (NEGATIVE); URINE LEUK ESTERASE NEGATIVE (NEGATIVE); URINE NITRITE NEGATIVE (NEGATIVE); URINE PROTEIN NEGATIVE (NEGATIVE); URINE UROBILINOGEN NEGATIVE mg/dL (0.2-1.0)
[2017-11-27 12:10] LABS: ALBUMIN 3.7 g/dl (3.4-5.0); ALK PHOS 60 U/L (45-117); ANION GAP 8 (8-16); BILIRUBIN,TOTAL 1.2 mg/dL (0.2-1.0); BLOOD UREA NITROGEN 14 mg/dL (7-18); CALCIUM 9.1 mg/dL (8.5-10.1); CHLORIDE 107 mmol/L (98-107); CO2 27 mmol/L (21-32); CREATININE 0.9 mg/dL (0.55-1.02); GLUCOSE,RANDOM 101 mg/dL (74-106); LIPASE 137 U/L (73-393); POTASSIUM 4.1 mmol/L (3.5-5.1); SGOT/AST 22 U/L (15-37); SGPT/ALT 23 U/L (12-78); SODIUM 142 mmol/L (136-145); TOT PROT 7.2 g/dl (6.4-8.2)
[2017-11-27] MEDS ORDERED: MAGNESIUM CITRATE 300 ML BOTTLE PO ONE (12:31)
[2017-11-27] MEDS ORDERED: MAGNESIUM CITRATE 300 ML BOTTLE ONE (13:23)
[2017-11-27 18:06] VITALS: BP 168/77; PULSE 74
--- NOTE | 2017-11-28 09:05 | EKG ---
Test Reason : Blood Pressure : / mmHG Vent. Rate : 069 BPM Atrial Rate : 066 BPM P-R Int : 000 ms QRS Dur : 124 ms QT Int : 440 ms P-R-T Axes : 000 -46 034 degrees QTc Int : 471 ms ATRIAL FIBRILLATION LEFT ANTERIOR FASCICULAR BLOCK LEFT VENTRICULAR HYPERTROPHY WITH QRS WIDENING ABNORMAL ECG WHEN COMPARED WITH ECG OF 06-MAR-2017 07:22, NO SIGNIFICANT CHANGE WAS FOUND Confirmed by AP RESTREPO, VIV ([id number]) on 11/28/2017 9:05:34 AM Referred By: Confirmed By:VIV DE SOUZA MD
== END 2017-11-27 18:00 ==
LOC: JER 10:03
DX: K59.00 Constipation, unspecified (principal); Z86.718 Personal history of other venous thrombosis and embolism; I10 Essential (primary) hypertension; E78.5 Hyperlipidemia, unspecified; I25.2 Old myocardial infarction; I48.91 Unspecified atrial fibrillation; Z79.01 Long term (current) use of anticoagulants
CPT/HCPCS: 36415; 74019-TC-FY; 74176-TC; 80053; 81003; 82272; 83605; 83690; 85025; 87086; 93005; 93010; 99282-25

== ENCOUNTER 2017-12-18 09:51 | Day surgery (SDC) | payer OTHER, BC ==
[2017-12-17 14:25] VITALS: BMI 30.8
[2017-12-18 12:35] VITALS: TEMP 97.8
[2017-12-18 13:28] VITALS: BP 121/67; PULSE 80
== END 2017-12-18 13:28 | disposition home or self-care (01) ==
LOC: JASU-ENDO 09:51
PROVIDERS: ATTEND Internal Medicine Gastroenterology
PROC: 0DJD8ZZ Inspection of Lower Intestinal Tract, Via Natural or Artificial Opening Endoscopic (ICD-10-PCS; principal; 2017-12-18 11:00)
DX: K57.30 Diverticulosis of large intestine without perforation or abscess without bleeding (principal); R93.3 Abnormal findings on diagnostic imaging of other parts of digestive tract; R19.4 Change in bowel habit; K64.8 Other hemorrhoids; G62.9 Polyneuropathy, unspecified; I25.2 Old myocardial infarction; Z86.19 Personal history of other infectious and parasitic diseases; Z96.652 Presence of left artificial knee joint; Z90.710 Acquired absence of both cervix and uterus

== ENCOUNTER 2018-06-25 09:55 | Observation (INO) | payer OTHER, BC ==
[2018-06-25 10:13] VITALS: BMI 31.8
[2018-06-25] MEDS ORDERED: ASPIRIN 81 MG CHEWABLE TABLETS PO ONE (10:14)
[2018-06-25] MEDS ORDERED: ONDANSETRON 4 MG/2 ML VIAL IVPUSH ONE (10:16)
[2018-06-25] MEDS ORDERED: ASPIRIN 81 MG CHEWABLE TABLETS ONE (10:50)
[2018-06-25] MEDS ORDERED: ONDANSETRON 4 MG/2 ML VIAL ONE (10:51)
[2018-06-25 11:08] LABS: BASO % 0.7 % (0-2.0); EOS % 0.6 % (0-4.5); HEMATOCRIT 40.4 % (32.4-45.2); HEMOGLOBIN 14.1 GM/dL (10.7-15.3); LYMPH % 16.4 % (8-40); MCH 31.3 pg (25.7-33.7); MEAN CELL VOLUME 89.4 fl (80-96); MEAN PLT VOLUME 8.9 fl (7.5-11.1); MONO % 5.3 % (3.8-10.2); PLATELET COUNT 215 K/MM3 (134-434); RBC 4.51 M/mm3 (3.60-5.2); RDW 13.8 % (11.6-15.6); WHITE BLOOD COUNT 7.3 K/mm3 (4.0-10.0)
[2018-06-25 11:13] LABS: INR 1.53 (0.83-1.09); PROTHROMBIN TIME (PATIENT) 18.1 SEC (9.7-13.0)
--- NOTE | 2018-06-25 11:25 | PDOC ---
Attending Attestation - Resident Resident Name: Fernando Sung - ED Attending Attestation I have performed the following: I have examined & evaluated the patient, The case was reviewed & discussed with the resident, I agree w/resident's findings & plan, Exceptions are as noted - HPI HPI: 06/25/18 11:22 88 F with h/o A-fib (on xarelto), diastolic CHF (preserved EF), TIA, DVT/PE, HTN , HLD, aortic stenosis, and TX, presenting to ED with SOB, STEVENSON and constipation. Pt states that her last BM was weeks ago. Endorses abdominal bloating and nausea but no vomiting. Pt has tried suppositories with no relief. Pt also endorses SOB and STEVENSON, which she believes may be related to her constipation. However, she states that the symptoms are also reminiscent of her last TX. Pt denies any chest pain. Denies leg swelling. - Physicial Exam PE: 06/25/18 11:23 GENERAL: Awake, alert, and fully oriented, in no acute distress. HEAD: No signs of trauma EYES: PERRLA, EOMI, sclera anicteric, conjunctiva clear ENT: Auricles normal inspection, hearing grossly normal, nares patent, oropharynx clear without exudates. Moist mucosa NECK: Nontender, no stepoffs, Normal ROM, supple, no lymphadenopathy, JVD, or masses LUNGS: Breath sounds equal, clear to auscultation bilaterally. No wheezes, and no crackles HEART: Regular rate and rhythm, normal S1 and S2, no murmurs, rubs or gallops ABDOMEN: + mild distention, nontender, normoactive bowel sounds. No guarding, no rebound. No masses EXTREMITIES: Normal range of motion, no edema. No clubbing or cyanosis. No cords, erythema, or tenderness NEUROLOGICAL: Cranial nerves II through XII intact. 5/5 strength and sensation in all extremities, Normal speech, normal gait, normal cerebellar function SKIN: Warm, Dry, normal turgor, no rashes or lesions noted. - Critical Care Time Total Critical Care Time: 45 Critical Care Statement: The care of this patient involved high complexity decision making to prevent further life threatening deterioration of the patient 's condition and/or to evaluate & treat vital organ system(s) failure or risk of failure. - Medical Decision Making 06/25/18 11:23 88 F with SOB, STEVENSON, and abdominal distention with nausea. Will evaluate for SBO. Pt will also need cardiac w/u given h/o TX. PE is on differential as well given h/o DVT/PE. However, pt with contrast allergy, unable to obtain CTA at this time. - Labs, trop - EKG - CXR - CTAP w/o contrast (contrast allergy) - BLE US to r/o DVT - Defer CTA 2/2 contrast allergy - Zofran 06/26/18 10:14 Initial trop 0.06 CTAP negative US shows chronic nonocclusive thrombi Pt admitted for ACS r/o and possible V/Q scan to r/o PE
[2018-06-25 11:39] LABS: ALBUMIN 3.5 g/dl (3.4-5.0); ALK PHOS 65 U/L (45-117); ANION GAP 4 MMOL/L (8-16); BILIRUBIN,TOTAL 1.8 mg/dL (0.2-1); BLOOD UREA NITROGEN 15 mg/dL (7-18); CALCIUM 8.7 mg/dL (8.5-10.1); CHLORIDE 108 mmol/L (98-107); CO2 29 mmol/L (21-32); CREATININE 1.3 mg/dL (0.55-1.3); GLUCOSE,RANDOM 110 mg/dL (74-106); MAGNESIUM 2.1 mg/dL (1.8-2.4); POTASSIUM 4.1 mmol/L (3.5-5.1); SGOT/AST < 3 U/L (15-37); SGPT/ALT 19 U/L (13-61); SODIUM 141 mmol/L (136-145); TOT PROT 7.6 g/dl (6.4-8.2)
--- NOTE | 2018-06-25 11:49 | RAPID ---
Physical Examination Vital Signs: Vital Signs Temperature 98 F 06/25/18 10:04 Pulse Rate 78 06/25/18 10:04 Respiratory Rate 18 06/25/18 10:04 Blood Pressure 141/65 06/25/18 10:04 O2 Sat by Pulse Oximetry (%) 99 06/25/18 10:04 Labs: CBC, BMP 06/25/18 10:35 06/25/18 10:35 Rapid Response - Rapid Response Assessment: rapid response was called overhead to central registration area on 1st floor. pt was c/o SOB, nausea and lightheadedness. ED staff present at pt's side upon arrival. PE was unable to be performed as pt was taken to ED right away, however pt appears NAD while sitting in chair. pt will be taken to ED for further monitoring and w/u
--- NOTE | 2018-06-25 11:58 | PDOC ---
History of Present Illness - General Chief Complaint: Lightheaded Stated Complaint: SOB,NAUSEA Time Seen by Provider: 06/25/18 10:00 History Source: Patient Exam Limitations: No Limitations - History of Present Illness Initial Comments: 06/25/18 11:42 Patient is an 88F with history of PE/DVT x2 on Xarelto, HTN, HLD, CHF, aortic stenosis here today complaining of shortness of breath and nausea for the past four days. Patient presented as a rapid response to the registration area. Patient states that this feels like the last time she had a heart attack. Denies fevers, chills, nausea, vomiting. Endorses a chest pain described as minor. Denies recent travel. Endorses compliance with medications. Past History - Past Medical History Allergies/Adverse Reactions: Allergies Allergy/AdvReac Type Severity Reaction Status Date / Time Iodinated Contrast- Oral and Allergy Unknown Hives Verified 03/06/17 07:40 IV Dye morphine Allergy Nausea for Verified 03/06/17 07:40 long periods IV Contrast dyes Allergy Hives Uncoded 03/06/17 07:40 Home Medications: Ambulatory Orders Amlodipine Besylate [Norvasc -] 5 mg PO DAILY 11/27/17 Atorvastatin Ca [Lipitor] 40 mg PO DAILY 11/27/17 Olmesartan Medoxomil [Benicar -] 40 mg PO DAILY 11/27/17 Rivaroxaban [Xarelto] 15 mg PO DAILY 11/27/17 Bimatoprost [Lumigan] 1 drop OU DAILY 12/17/17 Metoprolol Succinate [Toprol Xl] 25 mg PO DAILY 12/17/17 Anemia: Yes Asthma: No Cancer: No Cardiac Disorders: Yes (A FIB, [place] 2016) CVA: No COPD: No CHF: Yes DVT: Yes Dementia: No Diabetes: No GI Disorders: No Disorders: No HTN: Yes Hypercholesterolemia: Yes Liver Disease: No Seizures: No Thyroid Disease: No (GOITER) - Surgical History Abdominal Surgery: Yes (ovarian cyst removal, hysterectomy) Appendectomy: Yes Cholecystectomy: No Orthopedic Surgery: Yes (REUBEN HIP REPLACEMENT, TOTAL KNEE REPLACEMENT) - Immunization History Td Vaccination: Yes Immunization Up to Date: (UNKNOWN) - Suicide/Smoking/Psychosocial Hx Smoking Status: No Smoking History: Never smoked Have you smoked in the past 12 months: No Number of Cigarettes Smoked Daily: 0 Hx Alcohol Use: No Drug/Substance Use Hx: No Substance Use Type: None Hx Substance Use Treatment: No Review of Systems - Review of Systems Comments:: 06/25/18 12:05 GENERAL/CONSTITUTIONAL: No fever or chills. No weakness. HEAD, EYES, EARS, NOSE AND THROAT: No change in vision. No sore throat. CARDIOVASCULAR: +chest pain +shortness of breath RESPIRATORY: No cough, wheezing, or hemoptysis. GASTROINTESTINAL: No nausea, vomiting, diarrhea or constipation. GENITOURINARY: No dysuria, frequency, or change in urination. MUSCULOSKELETAL: No joint or muscle swelling or pain. No neck or back pain. SKIN: No rash NEUROLOGIC: No headache, vertigo, loss of consciousness, or change in strength/ sensation. ENDOCRINE: No increased thirst. No abnormal weight change HEMATOLOGIC/LYMPHATIC: No anemia, easy bleeding, +history of blood clots. ALLERGIC/IMMUNOLOGIC: No hives or skin allergy. *Physical Exam - Vital Signs Last Vital Signs Temp Pulse Resp BP Pulse Ox 98 F 78 18 141/65 99 06/25/18 10:04 06/25/18 10:04 06/25/18 10:04 06/25/18 10:04 06/25/18 10:04 - Physical Exam Comments: 06/25/18 12:06 GENERAL: Awake, alert, and fully oriented, in no acute distress HEAD: No signs of trauma, normocephalic, atraumatic EYES: PERRLA, EOMI, sclera anicteric, conjunctiva clear ENT: Auricles normal inspection, hearing grossly normal, nares patent, oropharynx clear without exudates. Moist mucosa NECK: Normal ROM, supple, no lymphadenopathy, JVD, or masses LUNGS: No distress, speaks full sentences, clear to auscultation bilaterally HEART: Regular rate and rhythm, normal S1 and S2, no murmurs, rubs or gallops, peripheral pulses normal and equal bilaterally. ABDOMEN: Soft, nontender, normoactive bowel sounds. No guarding, no rebound. No masses EXTREMITIES: Normal inspection, bilateral tenderness to palpation in posterior legs. NEUROLOGICAL: Cranial nerves II through XII grossly intact. Normal speech, no focal sensorimotor deficits SKIN: Warm, Dry, normal turgor, no rashes or lesions noted. Moderate Sedation - Procedure Monitoring Vital Signs: Procedure Monitoring Vital Signs Temperature 98 F 06/25/18 10:04 Pulse Rate 78 06/25/18 10:04 Respiratory Rate 18 06/25/18 10:04 Blood Pressure 141/65 06/25/18 10:04 O2 Sat by Pulse Oximetry (%) 99 06/25/18 10:04 ED Treatment Course - LABORATORY CBC & Chemistry Diagram: 06/25/18 10:35 06/25/18 10:35 - ADDITIONAL ORDERS Additional order review: Laboratory Results 06/25/18 06/25/18 10:35 10:35 PT with INR 18.10 H INR 1.53 H Sodium 141 Potassium 4.1 Chloride 108 H Carbon Dioxide 29 Anion Gap 4 L BUN 15 Creatinine 1.3 Creat Clearance w eGFR 38.84 Random Glucose 110 H Calcium 8.7 Magnesium 2.1 Total Bilirubin 1.8 H AST < 3 L ALT 19 Alkaline Phosphatase 65 Creatine Kinase 128 Troponin I 0.06 H Total Protein 7.6 Albumin 3.5 06/25/18 10:35 RBC 4.51 MCV 89.4 MCHC 35.0 RDW 13.8 MPV 8.9 Neutrophils % 77.0 Lymphocytes % 16.4 Monocytes % 5.3 Eosinophils % 0.6 Basophils % 0.7 - RADIOLOGY Radiology Studies Ordered: Category Date Time Status ABDOMEN & PELVIS CT W/O CONTR [CT] Stat CT Scan 06/25/18 11:08 Taken CXRPORT [CHEST X-RAY PORTABLE*] [RAD] Stat Radiology 06/25/18 10:15 Taken DUPLEX VASCUL US-2LEGS [US] Stat Ultrasound 06/25/18 10:15 Ordered - Medications Given in the ED: ED Medications Discontinued Medications Generic Name Dose Route Start Last Admin Trade Name Kushq PRN Reason Stop Dose Admin Aspirin 162 mg 06/25/18 10:14 06/25/18 10:57 Asa - PO 06/25/18 10:15 162 mg ONCE ONE Administration Ondansetron HCl 4 mg 06/25/18 10:16 06/25/18 10:57 Zofran Injection IVPUSH 06/25/18 10:17 4 mg ONCE ONE Administration Medical Decision Making - Medical Decision Making 06/25/18 12:06 Patient is 88F with history of DVT, HTN, HLD, CHF, aortic stenosis here today with shortness of breath, chest pain. Vitals normal and stable. DDx includes, but is not limited to: ACS, DVT, PE, constipation, sbo. Dye allergy prevents CTA , already on anticoagulation. Will evaluate with cardiac labs, ekg, cxr, dvt us , dry abd/pelvis ct. 06/25/18 13:[address] a/p shows no acute abnormalities. US shows chronic thrombosis on both sides. Trop weakly positive to 0.06. Will obs patient. 06/25/18 14:12 Case d/w Dr Carlisle [employer]. *DC/Admit/Observation/Transfer Diagnosis at time of Disposition: Troponin I above reference range - Discharge Dispostion Condition at time of disposition: Stable Decision to Admit order: Yes - Referrals Referrals: Joelle Moeller [Primary Care Provider] - - Patient Instructions - Post Discharge Activity
--- NOTE | 2018-06-25 16:01 | HP ---
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: Vertigo Cardiovascular: Yes: AFIB, CHF, HTN, Hyperlipdemia, TN, Other Gastrointestinal: Yes: Other (hx hepatitis A / reports similar episodes about every 2 months most subside on their own -- takes Zofran PRN as out patient) Heme/Onc: Yes: Anemia Endocrine: Yes: Ankur's Disease, Hypothyroidism, Other (Goiter) - Past Surgical History Past Surgical History: Yes: Appendectomy, Hysterectomy, Joint Replacement - Smoking History Smoking history: Former smoker Have you smoked in the past 12 months: No Aproximately how many cigarettes per day: 0 If you are a former smoker, when did you quit?: 60 yrs ago - Alcohol/Substance Use Hx Alcohol Use: No History of Substance Use: reports: None - Social History ADL: Support Services History of Recent Travel: No Home Medications - Allergies Allergies/Adverse Reactions: Allergies Allergy/AdvReac Type Severity Reaction Status Date / Time Iodinated Contrast- Oral and Allergy Unknown Hives Verified 03/06/17 07:40 IV Dye morphine Allergy Nausea for Verified 03/06/17 07:40 long periods IV Contrast dyes Allergy Hives Uncoded 03/06/17 07:40 - Home Medications Home Medications: Ambulatory Orders Amlodipine Besylate [Norvasc -] 5 mg PO DAILY 11/27/17 Atorvastatin Ca [Lipitor] 40 mg PO DAILY 11/27/17 Olmesartan Medoxomil [Benicar -] 40 mg PO DAILY 11/27/17 Rivaroxaban [Xarelto] 15 mg PO DAILY 11/27/17 Bimatoprost [Lumigan] 1 drop OU DAILY 12/17/17 Metoprolol Succinate [Toprol Xl] 25 mg PO DAILY 12/17/17 Family Disease History - Family Disease History Family Disease History: Heart Disease: Sister (1 sister of heart dz; another sister of Alzheimer's) Review of Systems - Review of Systems Constitutional: reports: Loss of Appetite Cardiovascular: reports: Chest Pain, Shortness of Breath Respiratory: reports: SOB Gastrointestinal: reports: Constipation, Nausea Genitourinary: reports: No Symptoms Breasts: reports: No Symptoms Reported Musculoskeletal: reports: No Symptoms Integumentary: reports: No Symptoms Neurological: reports: No Symptoms Endocrine: reports: No Symptoms Hematology/Lymphatic: reports: No Symptoms Psychiatric: reports: No Symptoms Physical Examination Vital Signs: Vital Signs Temperature 98.3 F 06/25/18 14:21 Pulse Rate 74 06/25/18 14:21 Respiratory Rate 18 06/25/18 10:04 Blood Pressure 167/77 06/25/18 14:21 O2 Sat by Pulse Oximetry (%) 96 06/25/18 14:21 Constitutional: Yes: Well Nourished, No Distress, Calm Eyes: Yes: Conjunctiva Clear, EOM Intact HENT: Yes: Atraumatic, Normocephalic Neck: Yes: Supple, Trachea Midline Cardiovascular: Yes: Regular Rate and Rhythm Respiratory: Yes: Regular, CTA Bilaterally Gastrointestinal: Yes: Normal Bowel Sounds, Soft, Tenderness Renal/: Yes: WNL Breast(s): Yes: WNL Musculoskeletal: Yes: WNL Extremities: Yes: WNL Edema: No Peripheral Pulses WNL: No Integumentary: Yes: WNL Neurological: Yes: Alert, Oriented ...Motor Strength: WNL Psychiatric: Yes: Alert, Oriented Labs: CBC, BMP 06/25/18 10:35 06/25/18 10:35 Imaging - Results Chest X-ray: Report Reviewed (Neg) Problem List - Problems (1) Troponin I above reference range Assessment/Plan: Refer to Cardio Code(s): R74.8 - ABNORMAL LEVELS OF OTHER SERUM ENZYMES (2) Constipation Assessment/Plan: Refer to GI Colace and Senna Code(s): K59.00 - CONSTIPATION, UNSPECIFIED Qualifiers: Constipation type: unspecified constipation type Qualified Code(s): K59.00 - Constipation, unspecified (3) DVT, bilateral lower limbs Assessment/Plan: Cont AC Code(s): I82.403 - ACUTE EMBOLISM AND THOMBOS UNSP DEEP VEINS OF LOW EXTRM, BI (4) Headache Code(s): R51 - HEADACHE (5) Hypertension Assessment/Plan: Monitor BP Code(s): I10 - ESSENTIAL (PRIMARY) HYPERTENSION (6) Nausea Assessment/Plan: Zofran PRN Code(s): R11.0 - NAUSEA Assessment/Plan 88 F with PMHX of A-fib (on Xarelto), diastolic CHF (preserved EF), TIA, DVT/PE , HTN, HLD, aortic stenosis, and TN, presented to central registration at which time rapid response was called for chest pain. Transferred to ED with SOB, STEVENSON, nausea and constipation. Pt states that her last BM was 10 days ago. Endorses abdominal bloating, nausea, SOB and STEVENSON. However, she states that the symptoms are the same as her last TN. Denies vomiting, leg swelling. Plan to admit to obs for Cardiac and GI consults.
[2018-06-25] MEDS ORDERED: ONDANSETRON 4 MG/2 ML VIAL IM PRN (16:42)
[2018-06-25] MEDS: DOCUSATE SODIUM 100 MG CAPSULE (FP) PO SCH (17:57)
[2018-06-25] MEDS: POLYETHYLENE GLYCOL 3350 119 GM BTL PO SCH (17:57)
[2018-06-25] MEDS: ATORVASTATIN CA 40 MG TABLET (FP) PO SCH (22:43)
[2018-06-25] MEDS: LATANOPROST 0.005% OPHTH SOLN 2.5ML BOTTLE OU SCH (22:43)
[2018-06-26 07:11] LABS: BASO % 0.9 % (0-2.0); EOS % 2.6 % (0-4.5); HEMATOCRIT 39.9 % (32.4-45.2); HEMOGLOBIN 13.6 GM/dL (10.7-15.3); MCH 30.4 pg (25.7-33.7); MEAN CELL VOLUME 89.6 fl (80-96); MEAN PLT VOLUME 9.1 fl (7.5-11.1); MONO % 8.2 % (3.8-10.2); NEUT % 64.3 % (42.8-82.8); PLATELET COUNT 217 K/MM3 (134-434); RBC 4.46 M/mm3 (3.60-5.2); RDW 13.5 % (11.6-15.6); WHITE BLOOD COUNT 6.2 K/mm3 (4.0-10.0)
[2018-06-26 07:32] LABS: ANION GAP 5 MMOL/L (8-16); BLOOD UREA NITROGEN 12 mg/dL (7-18); CALCIUM 8.7 mg/dL (8.5-10.1); CHLORIDE 106 mmol/L (98-107); CO2 28 mmol/L (21-32); CREATININE 1.1 mg/dL (0.55-1.3); GLUCOSE,RANDOM 103 mg/dL (74-106); SODIUM 139 mmol/L (136-145)
[2018-06-26] MEDS ORDERED: PT OWN MED DRAWER 7, Y5N ONE (08:21)
[2018-06-26] MEDS: VALSARTAN 160 MG TABLET (UD) PO SCH (09:09)
[2018-06-26] MEDS: DOCUSATE SODIUM 100 MG CAPSULE (FP) PO SCH ×3 (09:09→21:46)
[2018-06-26] MEDS: RIVAROXABAN 15 MG TABLET PO SCH (09:10)
[2018-06-26] MEDS: metoPROLOL SUCCINATE 25 MG TAB.SR.24H (FP) PO SCH (09:10)
[2018-06-26] MEDS: amLODIPine BESYLATE 5 MG TABLET (FP) PO SCH (09:10)
[2018-06-26] MEDS: POLYETHYLENE GLYCOL 3350 119 GM BTL PO SCH (09:13)
[2018-06-26] MEDS ORDERED: ONDANSETRON 4 MG/2 ML VIAL IVPUSH PRN (09:16)
[2018-06-26] MEDS ORDERED: PATIENT'S OWN MEDICATION (NON-FORMULARY) (Bimatoprost [Lumigan] 1 DROP) OU SCH (10:00)
[2018-06-26] MEDS ORDERED: PATIENT'S OWN MEDICATION (NON-FORMULARY) (Olmesartan Medoxomil 40 MG) PO SCH (10:00)
--- NOTE | 2018-06-26 11:29 | CON.CARD ---
Cardiology Consult (text) - Consultation Consultation Note: cc: nausea hpi: 88 f hx dchf, htn, afib, dvts, hep b, nstemi 10/2016 (med rx) here with nausea. For years has intermittent episodes of n/v/lack of appetite. Same sxs occurred past few days. No cp, sob, palps, dizzy, loc, pnd, orthopnea, le edema. Sees dr floyd for cardio. pmh: per hpi psh: appendectomy, hysterectomy social: no tob fam: no premature cad, scd ros: per hpi; no fever, cough, nasal congestion, PHILIPPE, vision changes, rash, gib , hematuria, dysuria meds: Home Medications Medication Instructions Recorded Amlodipine Besylate [Norvasc -] 5 mg PO DAILY 11/27/17 Atorvastatin Ca [Lipitor] 40 mg PO DAILY 11/27/17 Olmesartan Medoxomil [Benicar -] 40 mg PO DAILY 11/27/17 Rivaroxaban [Xarelto] 15 mg PO DAILY 11/27/17 Bimatoprost [Lumigan] 1 drop OU DAILY 12/17/17 Metoprolol Succinate [Toprol Xl] 25 mg PO DAILY 12/17/17 pe: Vital Signs Period Temp Pulse Resp BP Sys/Menjivar Pulse Ox Last 24 Hr 97.8 F-99.3 F 61-80 16-20 132-167/52-88 96-98 nad no jvd irreg s1s2 no mrg cta bl nl eff aaox3 no le e/c/c abd nt nd pos bs no jaundice diaphoresis pos dp pt no carotid bruits Laboratory Last Values WBC 6.2 K/mm3 (4.0-10.0) 06/26/18 05:50 RBC 4.46 M/mm3 (3.60-5.2) 06/26/18 05:50 Hgb 13.6 GM/dL (10.7-15.3) 06/26/18 05:50 Hct 39.9 % (32.4-45.2) 06/26/18 05:50 MCV 89.6 fl (80-96) 06/26/18 05:50 MCH 30.4 pg (25.7-33.7) 06/26/18 05:50 MCHC 34.0 g/dl (32.0-36.0) 06/26/18 05:50 RDW 13.5 % (11.6-15.6) 06/26/18 05:50 Plt Count 217 K/MM3 (134-434) 06/26/18 05:50 MPV 9.1 fl (7.5-11.1) 06/26/18 05:50 Absolute Neuts (auto) 4.0 K/mm3 (1.5-8.0) 06/26/18 05:50 Neutrophils % 64.3 % (42.8-82.8) 06/26/18 05:50 Lymphocytes % 24.0 % (8-40) D 06/26/18 05:50 Monocytes % 8.2 % (3.8-10.2) 06/26/18 05:50 Eosinophils % 2.6 % (0-4.5) D 06/26/18 05:50 Basophils % 0.9 % (0-2.0) 06/26/18 05:50 Nucleated RBC % 0 % (0-0) 06/26/18 05:50 PT with INR 18.10 SEC (9.7-13.0) H 06/25/18 10:35 INR 1.53 (0.83-1.09) H 06/25/18 10:35 Sodium 139 mmol/L (136-145) 06/26/18 05:50 Potassium 4.0 mmol/L (3.5-5.1) 06/26/18 05:50 Chloride 106 mmol/L (98-107) 06/26/18 05:50 Carbon Dioxide 28 mmol/L (21-32) 06/26/18 05:50 Anion Gap 5 MMOL/L (8-16) L 06/26/18 05:50 BUN 12 mg/dL (7-18) 06/26/18 05:50 Creatinine 1.1 mg/dL (0.55-1.3) 06/26/18 05:50 Creat Clearance w eGFR 47.09 (>60) 06/26/18 05:50 Random Glucose 103 mg/dL (74-106) 06/26/18 05:50 Calcium 8.7 mg/dL (8.5-10.1) 06/26/18 05:50 Magnesium 2.1 mg/dL (1.8-2.4) 06/25/18 10:35 Total Bilirubin 1.8 mg/dL (0.2-1) H 06/25/18 10:35 AST < 3 U/L (15-37) L 06/25/18 10:35 ALT 19 U/L (13-61) 06/25/18 10:35 Alkaline Phosphatase 65 U/L (45-117) 06/25/18 10:35 Creatine Kinase 128 U/L (26-192) 06/25/18 10:35 Troponin I 0.06 ng/ml (0.00-0.05) H 06/25/18 10:35 Total Protein 7.6 g/dl (6.4-8.2) 06/25/18 10:35 Albumin 3.5 g/dl (3.4-5.0) 06/25/18 10:35 ecg: afib rate controlled, no ischemic changes, nl qtc similar to priors cxr: clear lungs echo 08/2016: nl lv/rv, 1+ lae, mod (3.3 m/s, 44/27), 1+ mr, 1+ phtn echo 11/03: nl lvef, rv tds, mod fallon, mild mr, mod as, mild-mod AR, mod-sev tr, rvsp 40-50 echo 01/2018: lvh, nl lvef, nl rv, sev lae, mild orly, sev as, mild ar, mild-mod tr, mild phtn, rvsp 35-40 MIBI 03/04 (lala): no STs; no isch (variable breast); nl EF; no LVE/TID mibi 10/2016: no sig ischemia tele: afib, rate ok a/p: 88 f hx dchf, htn, afib, dvts, hep b, nstemi 10/2016 (med rx) here with nausea. nausea: -chronic symptom for years, GI related, not cardiac. -no suspicion for acs at present -ecg w/o ischemic changes. trop is borderline range but this is her baseline value for years, not c/w acs -Continued GI eval. nstemi 10/2016: -plan as above -recent echo shows nl lvef -mibi at time of nstemi was low risk study (possible mild anteroapical ischemia) -->med management of cad -cont home asa, statin, bb, arb /chronic diastolic chf -stable, no vol overload. -routine outpt monitoring of htn: -cont home meds afib: -rate controlled on bb -on ac cardiac moreno stable
[2018-06-26] MEDS ORDERED: BISACODYL 5 MG TABLET.DR (FP) PO ONE (11:57)
--- NOTE | 2018-06-26 12:04 | PN ---
Physical Exam: SUBJECTIVE: Patient seen and examined in the solarium. Daughter present. patient has been having intermittent nausea in the past with chronic constipation. has seen Dr. Deleon in the past. last colonoscopy 3 years ago. She lives at the [facility], came to [facility] via taxi for feelings of nausea that worsened yesterday. She tells me that she ran in the hospital which made her short of breath and feeling weak. A rapid response was called at central registration and she is being evaluated here to rule out ACS. her last BM was 9 days ago. An abd/ct shows no obstruction, but shows that she has significant fecal retention. She takes vicodin or percocet at night on most nights for generalized pain and for insomnia. OBJECTIVE: Vital Signs Period Temp Pulse Resp BP Sys/Menjivar Pulse Ox Last 24 Hr 97.8 F-99.3 F 61-80 16-20 132-167/52-88 96-98 GENERAL: The patient is awake, alert, and fully oriented, in no acute distress. HEAD: Normal with no signs of trauma. EYES: PERRL, extraocular movements intact, sclera anicteric, conjunctiva clear. No ptosis. ENT: Ears normal, nares patent, oropharynx clear without exudates, moist mucous membranes. NECK: Trachea midline, full range of motion, supple. HEART: afib rate controlled ABDOMEN: Soft, nontender, nondistended, normoactive bowel sounds EXTREMITIES: non pitting edema bilaterally NEUROLOGICAL: Normal speech, ambulates with a cane PSYCH: Normal mood, normal affect. SKIN: Warm, dry, normal turgor, no rashes or lesions noted Laboratory Results - last 24 hr 06/26/18 06/26/18 05:50 05:50 WBC 6.2 RBC 4.46 Hgb 13.6 Hct 39.9 MCV 89.6 MCH 30.4 MCHC 34.0 RDW 13.5 Plt Count 217 MPV 9.1 Absolute Neuts (auto) 4.0 Neutrophils % 64.3 Lymphocytes % 24.0 D Monocytes % 8.2 Eosinophils % 2.6 D Basophils % 0.9 Nucleated RBC % 0 Sodium 139 Potassium 4.0 Chloride 106 Carbon Dioxide 28 Anion Gap 5 L BUN 12 Creatinine 1.1 Creat Clearance w eGFR 47.09 Random Glucose 103 Calcium 8.7 Active Medications Generic Name Dose Route Start Last Admin Trade Name Freq PRN Reason Stop Dose Admin Amlodipine Besylate 5 mg 06/26/18 10:00 06/26/18 09:10 Norvasc - PO 5 mg DAILY AMALIA Administration Atorvastatin Calcium 40 mg 06/25/18 22:00 06/25/18 22:43 Lipitor - PO 40 mg HS AMALIA Administration Bisacodyl 10 mg 06/26/18 11:57 Dulcolax - PO 06/26/18 11:58 ONCE ONE Docusate Sodium 200 mg 06/25/18 16:30 06/26/18 09:09 Colace - PO 200 mg DAILY AMALIA Administration Latanoprost 1 drop 06/25/18 22:00 06/25/18 22:43 Xalatan 0.005% Eye Drops - OU 1 drop HS AMALIA Administration Metoprolol Succinate 25 mg 06/26/18 10:00 06/26/18 09:10 Toprol Xl - PO 25 mg DAILY AMALIA Administration Ondansetron HCl 4 mg 06/26/18 09:16 06/26/18 09:48 Zofran Injection IVPUSH 4 mg Q6H PRN Administration NAUSEA Polyethylene Glycol 17 gm 06/25/18 16:30 06/26/18 09:13 Miralax (For Daily Use) - PO 17 gm DAILY AMALIA Administration Rivaroxaban 15 mg 06/26/18 10:00 06/26/18 09:10 Xarelto PO 15 mg DAILY AMALIA Administration Senna 2 tab 06/26/18 22:00 Senna - PO HS AMALIA Valsartan 320 mg 06/26/18 10:00 06/26/18 09:09 Diovan - PO 320 mg DAILY AMALIA Administration ASSESSMENT/PLAN: 88 year old female placed under observation after she became a rapid response for feelings of nausea and weakness at central registration. No LOC loss. Past medical history of: diastolic CHF (preserved EF) TIA DVT/PE HTN HLD [place] 2017 Card: hx of nstemi 2017 ACS ruled our by inter com installer EKG without ischemic changes Troponins boderline Hypertension, controlled diovan, norvasc, metoprolol afib. on xarelto Gi: Persistent nausea/constipation x 9 days Patient reports poor appetite, persistent nausea and no BM for about 9 days Abd/ct without obstruction but shows significant fecal retention Will start bowel regimen GI evaluation full code Visit type - Emergency Visit Emergency Visit: Yes ED Registration Date: 06/25/18 Care time: The patient presented to the Emergency Department on the above date and was hospitalized for further evaluation of their emergent condition. - New Patient This patient is new to me today: Yes Date on this admission: 06/26/18 - Critical Care Critical Care patient: No - Discharge Referral Referred to [facility] Med P.C.: No
[2018-06-26] MEDS: LATANOPROST 0.005% OPHTH SOLN 2.5ML BOTTLE OU SCH (21:46)
[2018-06-26] MEDS: ATORVASTATIN CA 40 MG TABLET (FP) PO SCH (21:46)
[2018-06-26] MEDS ORDERED: SENNOSIDES 8.6MG TABLET (FP) PO SCH (22:00)
[2018-06-27] MEDS: DOCUSATE SODIUM 100 MG CAPSULE (FP) PO SCH (05:39)
[2018-06-27] MEDS: metoPROLOL SUCCINATE 25 MG TAB.SR.24H (FP) PO SCH (09:30)
[2018-06-27] MEDS: amLODIPine BESYLATE 5 MG TABLET (FP) PO SCH (09:30)
[2018-06-27] MEDS: VALSARTAN 160 MG TABLET (UD) PO SCH (09:30)
[2018-06-27] MEDS: POLYETHYLENE GLYCOL 3350 119 GM BTL PO SCH (09:30)
[2018-06-27] MEDS: RIVAROXABAN 15 MG TABLET PO SCH (09:30)
--- NOTE | 2018-06-27 10:33 | DS ---
Physical Exam: SUBJECTIVE: Patient seen and examined at the bedside. sitting up, had breakfast. feels better, no further nausea tells me that she is depressed and may seek to get an anti-depressant with her PCP. OBJECTIVE: discharge back to [facility] living had multiple bowel movements overnight no nausea/no vomiting Vital Signs Period Temp Pulse Resp BP Sys/Menjivar Pulse Ox Last 24 Hr 97.4 F-99.6 F 59-67 17-20 128-147/57-90 96 PHYSICAL EXAM GENERAL: The patient is awake, alert, and fully oriented, in no acute distress. HEAD: Normal with no signs of trauma. EYES: PERRL, extraocular movements intact, sclera anicteric, conjunctiva clear. No ptosis. ENT: Ears normal, nares patent, oropharynx clear without exudates, moist mucous membranes. NECK: Trachea midline, full range of motion, supple. HEART: afib rate controlled ABDOMEN: Soft, nontender, nondistended, normoactive bowel sounds EXTREMITIES: non pitting edema bilaterally NEUROLOGICAL: Normal speech, ambulates with a cane PSYCH: Normal mood, normal affect. SKIN: Warm, dry, normal turgor, no rashes or lesions noted LABS HOSPITAL COURSE: Date of Admission:06/25/18 Date of Discharge: 06/27/18 Patient is an 88 year old female placed under observation after she became a rapid response for feelings of nausea and weakness at central registration. No LOC loss. Past medical history of: diastolic CHF (preserved EF) TIA DVT/PE HTN HLD [place] 2016 Card: Rule out ACS - ruled out hx of nstemi 2017 ACS ruled out by beauty culturist apprentice EKG without ischemic changes Troponins boderline, but flat trending Outpatient follow up with Dr. Liu Hypertension, controlled benicar, norvasc, metoprolol afib. on xarelto HLD, on statin GI: Persistent nausea/constipation x 9 days - resolved Had multiple bowel movements after tap water enema. Refer to GI outpatient. referral given. Patient to continue colace, miralax and senna full code. discharge patient back to [facility] with close pcp and outpatient GI referral. Minutes to complete discharge: 45 Discharge Summary Reason For Visit: ELEVATED TROPONIN LEVEL Current Active Problems Troponin I above reference range (Acute) Condition: Stable - Instructions Diet, Activity, Other Instructions: Mrs Adams: You were placed under observation at [facility] after you experienced nausea and shortness of breath. We monitored you on a cardiac unit and you have been cleared by the beauty culturist apprentice to go home. We also did an abdominal CT scan which showed significant fecal retention. Here are our recommendations: Cardiology: Continue your home medications as you are doing and continue taking the Xarelto. Please follow up with within 2 weeks. Please make a follow up appointment. Constipation: The CT scan showed that you were retaining stool. Therefore, we will be starting you on the following bowel regimen: -Colace 100mg, take one tablet at 8am 2pm and 8pm -Miralax 17gram, take one capful twice per day at 8am and 8pm. You can mix it in your coffee. -Senna 2 tablets at 8pm Please follow up with the GI specialist by calling for an appointment. Their information is enclosed. Thank you Anisha Villaseñor CROP SPECIALIST [facility] [phone] Referrals: Joelle Moeller [Primary Care Provider] - Lina Dash DO [Staff Physician] - Disposition: HOME - Home Medications Comprehensive Discharge Medication List: Ambulatory Orders Amlodipine Besylate [Norvasc -] 5 mg PO DAILY 11/27/17 Atorvastatin Ca [Lipitor] 40 mg PO DAILY 11/27/17 Olmesartan Medoxomil [Benicar -] 40 mg PO DAILY 11/27/17 Rivaroxaban [Xarelto] 15 mg PO DAILY 11/27/17 Bimatoprost [Lumigan] 1 drop OU DAILY 12/17/17 Metoprolol Succinate [Toprol Xl] 25 mg PO DAILY 12/17/17 Docusate Sodium [Colace -] 100 mg PO TID #90 capsule 06/27/18 Polyethylene Glycol 3350 [Miralax 119 gm Btl -] 17 gm PO DAILY #1 bottle Sennosides [Senna -] 2 tab PO HS #120 tablet 06/27/18 This patient is new to me today: No Emergency Visit: Yes ED Registration Date: 06/25/18 Care time: The patient presented to the Emergency Department on the above date and was hospitalized for further evaluation of their emergent condition. Critical Care patient: No - Discharge Referral Referred to [facility] Med P.C.: No
[2018-06-27 10:35] VITALS: BP 135/71; PULSE 68; TEMP 97.8
--- NOTE | 2018-06-27 11:25 | PN ---
Progress Note (short form) - Note Progress Note: s: no sob cp palps dizzy Current Medications Generic Name Dose Route Start Last Admin Trade Name Freq PRN Reason Stop Dose Admin Amlodipine Besylate 5 mg 06/26/18 10:00 06/27/18 09:30 Norvasc - PO 5 mg DAILY AMALIA Administration Atorvastatin Calcium 40 mg 06/25/18 22:00 06/26/18 21:46 Lipitor - PO 40 mg HS AMALIA Administration Docusate Sodium 100 mg 06/26/18 14:00 06/27/18 05:39 Colace - PO 100 mg TID AMALIA Administration Latanoprost 1 drop 06/25/18 22:00 06/26/18 21:46 Xalatan 0.005% Eye Drops - OU 1 drop HS AMALIA Administration Metoprolol Succinate 25 mg 06/26/18 10:00 06/27/18 09:30 Toprol Xl - PO 25 mg DAILY AMALIA Administration Ondansetron HCl 4 mg 06/26/18 09:16 06/26/18 09:48 Zofran Injection IVPUSH 4 mg Q6H PRN Administration NAUSEA Polyethylene Glycol 17 gm 06/25/18 16:30 06/27/18 09:30 Miralax (For Daily Use) - PO 17 gm DAILY AMALIA Administration Rivaroxaban 15 mg 06/26/18 10:00 06/27/18 09:30 Xarelto PO 15 mg DAILY AMALIA Administration Senna 2 tab 06/26/18 22:00 06/26/18 21:46 Senna - PO 2 tab HS AMALIA Administration Valsartan 320 mg 06/26/18 10:00 06/27/18 09:30 Diovan - PO 320 mg DAILY AMALIA Administration Vital Signs Period Temp Pulse Resp BP Sys/Menjivar Pulse Ox Last 24 Hr 97.4 F-99.6 F 59-68 17-20 128-147/57-90 95-96 nad no jvd irreg s1s2 no mrg cta bl nl eff aaox3 no le e/c/c abd nt nd pos bs no jaundice diaphoresis CBC, BMP 06/26/18 05:50 06/26/18 05:50 ecg: afib rate controlled, no ischemic changes, nl qtc similar to priors cxr: clear lungs echo 08/2016: nl lv/rv, 1+ lae, mod (3.3 m/s, 44/27), 1+ mr, 1+ phtn echo 11/03: nl lvef, rv tds, mod fallon, mild mr, mod as, mild-mod AR, mod-sev tr, rvsp 40-50 echo 01/2018: lvh, nl lvef, nl rv, sev lae, mild orly, sev as, mild ar, mild-mod tr, mild phtn, rvsp 35-40 MIBI 03/04 (lala): no STs; no isch (variable breast); nl EF; no LVE/TID mibi 10/2016: no sig ischemia tele: afib, rate ok a/p: 88 f hx dchf, htn, afib, dvts, hep b, nstemi 10/2016 (med rx) here with nausea. nausea, constipation: -chronic symptoms for years, GI related, not cardiac. -no suspicion for acs at present -ecg w/o ischemic changes. trop is borderline range but this is her baseline value for years, not c/w acs -Continued GI eval. nstemi 10/2016: -plan as above -recent echo shows nl lvef -mibi at time of nstemi was low risk study (possible mild anteroapical ischemia) -->med management of cad -cont home asa, statin, bb, arb /chronic diastolic chf -stable, no vol overload. -routine outpt monitoring of htn: -cont home meds afib: -rate controlled on bb -on ac cardiac moreno stable for dc
--- NOTE | 2018-06-27 11:57 | EKG ---
Test Reason : Blood Pressure : / mmHG Vent. Rate : 077 BPM Atrial Rate : 357 BPM P-R Int : 000 ms QRS Dur : 124 ms QT Int : 402 ms P-R-T Axes : 000 -37 087 degrees QTc Int : 454 ms ATRIAL FIBRILLATION LEFT AXIS DEVIATION LEFT VENTRICULAR HYPERTROPHY WITH QRS WIDENING NONSPECIFIC ST AND T WAVE ABNORMALITY ABNORMAL ECG WHEN COMPARED WITH ECG OF 27-NOV-2017 11:02, T WAVE AMPLITUDE HAS INCREASED IN ANTERIOR LEADS T WAVE INVERSION NOW EVIDENT IN LATERAL LEADS Confirmed by VIV DE SOUZA MD ([id number]) on 06/27/2018 11:56:48 AM Referred By: Confirmed By:VIV DE SOUZA MD
== END 2018-06-27 11:46 | disposition home or self-care (01) ==
LOC: JER 09:55 → JERBED 14:02 → J4W 16:24
PROVIDERS: ADMIT Family Medicine; ATTEND Nurse Practitioner Family
PROC: 3E033GC Introduction of Other Therapeutic Substance into Peripheral Vein, Percutaneous Approach (ICD-10-PCS; principal; 2018-06-25)
PROC: 3E023GC Introduction of Other Therapeutic Substance into Muscle, Percutaneous Approach (ICD-10-PCS; 2018-06-25)
DX: R77.8 Other specified abnormalities of plasma proteins (principal); K59.00 Constipation, unspecified; R51 Headache; R11.0 Nausea; I11.0 Hypertensive heart disease with heart failure; I48.91 Unspecified atrial fibrillation; I35.0 Nonrheumatic aortic (valve) stenosis; I50.30 Unspecified diastolic (congestive) heart failure; I25.2 Old myocardial infarction; E78.5 Hyperlipidemia, unspecified; E04.9 Nontoxic goiter, unspecified; I82.531 Chronic embolism and thrombosis of right popliteal vein; I82.412 Acute embolism and thrombosis of left femoral vein; Z79.01 Long term (current) use of anticoagulants; Z86.711 Personal history of pulmonary embolism; Z86.73 Personal history of transient ischemic attack (TIA), and cerebral infarction without residual deficits; Z96.643 Presence of artificial hip joint, bilateral; Z96.659 Presence of unspecified artificial knee joint; Z87.891 Personal history of nicotine dependence; Z88.6 Allergy status to analgesic agent; Z91.041 Radiographic dye allergy status
CPT/HCPCS: 36415; 71045-TC-FY; 74176-TC; 80048; 80053; 82550; 83735; 84484; 85025; 85610; 93005; 93010; 93970-TC; 96372; 96374; 96376; 99284-25; G0378

== ENCOUNTER 2019-03-19 06:50 | Emergency (ER) | payer OTHER, BC ==
[2019-03-19 07:10] VITALS: BMI 30.4
[2019-03-19] MEDS ORDERED: SODIUM CHLORIDE 1,000 ML IV STA (07:21)
[2019-03-19 08:23] LABS: BASO % 0.6 % (0-2.0); EOS % 1.7 % (0-4.5); HEMATOCRIT 39.1 % (32.4-45.2); LYMPH % 12.1 % (8-40); MCH 29.7 pg (25.7-33.7); MCHC 33.2 g/dl (32.0-36.0); MEAN CELL VOLUME 89.5 fl (80-96); MEAN PLT VOLUME 9.1 fl (7.5-11.1); MONO % 4.5 % (3.8-10.2); NEUT % 81.1 % (42.8-82.8); PLATELET COUNT 232 K/MM3 (134-434); RBC 4.37 M/mm3 (3.60-5.2)
--- NOTE | 2019-03-19 08:24 | PDOC ---
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 She reports that she has had chronic constipation, and she has been prescribed several laxatives and stool softener by GI. She has been taking Linzess, senna, and miralax daily as prescribed. She has also tried suppositories several times as well as enemas twice over the past week. She reports that none of these interventions have resulted in any improvement; she has not passed any stool at all and does not believe she has passed any gas over the past few days. She does report a history of three open surgeries "years ago" but says that she had a colonoscopy last year that showed no abnormalities or blockages. Ms Adams states that she had relief of her constipation with enemas during a previous hospitalization for the same symptoms. Past History - Past Medical History Allergies/Adverse Reactions: Allergies Allergy/AdvReac Type Severity Reaction Status Date / Time Iodinated Contrast Media Allergy Unknown Hives Verified 03/19/19 07:33 morphine Allergy Nausea for Verified 03/19/19 07:33 long periods IV Contrast dyes Allergy Hives Uncoded 03/19/19 07:33 Home Medications: Ambulatory Orders Atorvastatin Ca [Lipitor] 40 mg PO DAILY 11/27/17 Olmesartan Medoxomil [Benicar -] 40 mg PO DAILY 11/27/17 Rivaroxaban [Xarelto] 20 mg PO DAILY 11/27/17 Metoprolol Succinate [Toprol Xl] 25 mg PO DAILY 12/17/17 Docusate Sodium [Colace -] 100 mg PO TID #90 capsule 06/27/18 Polyethylene Glycol 3350 [Miralax 119 gm Btl -] 17 gm PO DAILY #1 bottle Sennosides [Senna -] 2 tab PO HS #120 tablet 06/27/18 Hydralazine HCl 10 mg PO BID 03/19/19 Linaclotide [Linzess] 290 mcg PO DAILY 03/19/19 Anemia: Yes Asthma: No Cancer: No Cardiac Disorders: Yes (A FIB, [place] 2016) CVA: No COPD: No CHF: Yes DVT: Yes Dementia: No Diabetes: No GI Disorders: No Disorders: No HTN: Yes Hypercholesterolemia: Yes Liver Disease: No Seizures: No Thyroid Disease: No (GOITER) - Surgical History Abdominal Surgery: Yes (ovarian cyst removal, hysterectomy) Appendectomy: Yes Cholecystectomy: No Orthopedic Surgery: Yes (REUBEN HIP REPLACEMENT, TOTAL KNEE REPLACEMENT) - Immunization History Td Vaccination: Yes Immunization Up to Date: (UNKNOWN) - Psycho Social/Smoking Cessation Hx Smoking Status: No Smoking History: Never smoked Have you smoked in the past 12 months: No Number of Cigarettes Smoked Daily: 0 If you are a former smoker, when did you quit?: 60 yrs ago Information on smoking cessation initiated: No Hx Alcohol Use: No Drug/Substance Use Hx: No Substance Use Type: None Hx Substance Use Treatment: No Review of Systems - Review of Systems Comments:: General: No fevers, no chills, no weight or appetite change, no malaise HEENT: No changes in vision, no changes in hearing, no congestion, no sore throat CV: No chest pain, no palpitations, no LE edema Pulm: No SOB, no cough, no wheezing GI: See HPI : No frequency, no urgency, no dysuria Musc: No back pain, no joint swelling, no recent injury Skin: No rash, no lesions, no erythema Endo: No excessive thirst, no heat/cold intolerance Heme: No unusual bruising or bleeding, no swollen glands Neuro: No syncope, no numbness/tingling, no focal weakness Vasc: No claudication Psych: No recent change in mood, no SI or HI *Physical Exam - Vital Signs Last Vital Signs Temp Pulse Resp BP Pulse Ox 97.7 F 68 22 H 175/83 H 96 03/19/19 07:08 03/19/19 07:08 03/19/19 07:08 03/19/19 07:08 03/19/19 07:08 - Physical Exam General: Comfortable, no acute distress HEENT: PERRL, EOMI, MMM, voice normal, normal neck ROM Cards: RRR, no murmur appreciated Pulm: Comfortable on room air, clear to auscultation bilaterally Abd: Soft, Slight diffuse tenderness, nondistended Rectal: Normal tone, no blood noted, no perianal lesions Ext: Atraumatic. No LE edema. ROM intact. WWP Skin: Normal color, no rashes or lesions Neuro: A&Ox3, CN grossly intact, normal speech, motor/sensory grossly intact and symmetric Psych: Mood appropriate to situation ED Treatment Course - LABORATORY CBC & Chemistry Diagram: 03/19/19 08:00 03/19/19 08:00 - Medications Given in the ED: ED Medications Discontinued Medications Generic Name Dose Route Start Last Admin Trade Name Anisa PRN Reason Stop Dose Admin Sodium Chloride 1,000 mls @ 1,000 mls/hr 03/19/19 07:21 03/19/19 08:05 Normal Saline - IV 03/19/19 08:20 1,000 mls/hr ASDIR STA Administration Medical Decision Making - Medical Decision Making 03/19/19 08:21 Arin Adams is an 88yo woman with a 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 She reports abdominal discomfort but no pain. - Presentation concerning for obstruction given report of obstipation as well as constipation. Ddx also includes benign constipation, diverticulitis, mesenteric ischemia though less likely given no h/o abdominal pain - CBC, CMP, lipase, lactate, EKG, trop - CT abd/pelvis with contrast if Cr WNL 03/19/19 09:15 - Labs reviewed. No concerning abnormalities - CT abd/pelvis ordered for evaluation 03/19/19 10:53 - CT compelted. Minimal stool burden, no obstruction, no acute abnormalities. Small hiatal hernia - Updated pt. Likely not having bowel movements because she has minimal stool and was eating very little throughout the week. Pt states that she has been prescribed Nexium but only takes it occasionally. - Famontidine, maalox ordered for continued nausea - Will reassess, most likely to d/c with GI follow up. 03/19/19 12:05 - Patient feels significantly improved - Will d/c home Discussed with Dr Michelle Jon PGY2 Discharge - Discharge Information Problems reviewed: Yes Clinical Impression/Diagnosis: Nausea Condition: Stable Disposition: HOME - Admission No - Follow up/Referral Referrals: Joelle Moeller [Primary Care Provider] - Gume Vickers MD [Staff Physician] - Babatunde Cooley MD [Staff Physician] - Nishant Abraham DO [Staff Physician] - Lina Dash DO [Staff Physician] - - Patient Discharge Instructions Patient Printed Discharge Instructions: DI for Hiatal Hernia Additional Instructions: Discharge Instructions: You were seen in the emergency department for abdominal discomfort, nausea, and constipation. You had a CT scan that did not show any constipation, but you were found to have a small hiatal hernia (hernia of the stomach), which can worsen heartburn and nausea. Home Care: - Continue to take all of your regular home medications as prescribed - It is recommended that you take an acid medication such as Nexium every day until you follow up with GI. This may reduce your nausea and discomfort. Take this medication at least 30 minutes before eating or taking other medications. - Continue to eat a high-fiber diet - Follow up with your regular doctor within the next week. - Make an appointment to see a GI doctor as soon as possible, ideally within the next week. You have been given contact information for several doctors. - Seek immediate care for worsening symptoms, inability to eat, persistent vomiting, or any other medical emergency. - Post Discharge Activity
[2019-03-19 08:32] LABS: ALBUMIN 3.6 g/dl (3.4-5.0); BILIRUBIN,TOTAL 1.3 mg/dL (0.2-1); BLOOD UREA NITROGEN 14.6 mg/dL (7-18); POTASSIUM 3.9 mmol/L (3.5-5.1); TOT PROT 6.6 g/dl (6.4-8.2)
--- NOTE | 2019-03-19 09:16 | PDOC ---
Attending Attestation - Resident Resident Name: DontrellDaniella - ED Attending Attestation I have performed the following: I have examined & evaluated the patient, The case was reviewed & discussed with the resident, I agree w/resident's findings & plan - HPI HPI: 03/19/19 09:14 Lalo 88 YOF with h/o diastolic CHF (preserved EF), TIA, DVT/PE, HTN, HLD, [place] (2017), chronic constipation, presenting with constipation (-)flatus x 1 week. similar presentations to the ED and admissions for constipation Decreased PO intake and appetite. Prior abdominal surgeries including appendectomy, ovarian cystectomy, hysterectomy. 03/19/19 09:15 - Physicial Exam PE: 03/19/19 09:14 Agree with the resident's HPI and PE as documented in the electronic medical record. NAD, well appearing, EOMI, PERRL, nl conjunctiva, anicteric; neck supple. lungs clear, RRR, abdomen soft lower abdominal TTP, surgical scars. no rebound, guarding. Back nontender. LAMBERT x4, no focal neuro deficits. No peripheral edema. normal color for ethnicity, WWP. - Medical Decision Making 03/19/19 09:44 Vital Signs Temp Pulse Resp BP Pulse Ox 97.7 F 72 18 186/89 H 98 03/19/19 09:19 03/19/19 09:19 03/19/19 09:19 03/19/19 09:19 03/19/19 09:19 Differential diagnosis includes constipation, bowel obstruction, intra- abdominal infection, diverticulitis, adhesions, abdominal inflammation/ mesenteric ischemia Laboratory results are within normal limits, normal WBC count and normal lactic acid so unlikely to be ischemic or infectious/septic. UA is also unremarkable for any signs of infection. CT abdomen and pelvis unremarkable, gallstones; no cholecystitis, s/p appendectomy. no constipation or obstruction. hiatal hernia given pepcid and maalox, IVF, with relief. abdomen is soft and nontender, no cp or sob doubt cardiac, ECG unremarkable as documented. doubt ACS sx could be related to hiatal hernia, also on bowel regimen GI outpatient eval for hiatal hernia and reflux symptoms. compliance with PPI advised, diet modification Pt to be discharged in stable condition. Patient and family made aware of clinical impression, treatment recommendations and disposition plan, return precautions discussed (including but not limited to new or persistent/worsening symptoms, pain, fevers, or signs of infection, chest pain, respiratory distress , inability to tolerate oral intake, dehydration, syncope, or neurologic changes ). Follow up with PMD and/or specialist as recommended, follow up information provided, take medications as instructed for duration of time. continue with supportive care, avoid triggers and precipitants. All questions answered to patient's satisfaction and expressed understanding and comfort with this. At the time of discharge, the patient is alert, clinically improved, tolerating po and verbalizes understanding of instructions, satisfied with the care received and felt comfortable with the plan. Patient does not suffer from an acute life- threatening medical condition at this time and is safe for outpatient follow- up. 03/19/19 12:22 Heart Score/ECG Review #1 ECG reviewed & interpreted by me at: 07:40 General ECG Interpretation: Sinus Rhythm, Normal Rate, Normal Intervals Compared to previous ECG there are: No significant change 03/19/19 09:15 EKG normal sinus rhythm at 68 bpm, no interval abnormalities, narrow QRS, ST and T wave segments and morphology normal. Nonspecific T wave abnormalities left anterior fascicular block.
[2019-03-19 09:39] LABS: EPI CELLS 1.4 /HPF (0-5/HPF); HYALINE CASTS 0 /lpf (0-8); URINE APPEARANCE CLEAR; URINE BACTERIA 57.1 /hpf (NEGATIVE); URINE BILIRUBIN NEGATIVE (NEGATIVE); URINE COLOR YELLOW; URINE GLUCOSE (UA) NEGATIVE (NEGATIVE); URINE KETONE NEGATIVE (NEGATIVE); URINE LEUK ESTERASE TRACE (NEGATIVE); URINE NITRITE NEGATIVE (NEGATIVE); URINE PROTEIN NEGATIVE (NEGATIVE); URINE RBC 1 /hpf (0-4); URINE UROBILINOGEN 0.2 mg/dL (0.2-1.0); URINE WBC 3 /hpf (0-5)
[2019-03-19] MEDS ORDERED: FAMOTIDINE 20 MG/50 ML IVPB 20 MG/50 ML MG IVPB ONE ×2 (10:55→11:18)
[2019-03-19] MEDS ORDERED: MAG HYDROX/AL HYDROX/SIMETH -MYLANTA- ORAL SUSPENSION PO ONE (10:55)
[2019-03-19] MEDS ORDERED: MAG HYDROX/AL HYDROX/SIMETH 30 ML UNIT-DOSE CUP ONE (11:18)
[2019-03-19 12:46] VITALS: BP 173/83; PULSE 69; TEMP 97.8
--- NOTE | 2019-03-21 11:32 | EKG ---
Test Reason : Blood Pressure : / mmHG Vent. Rate : 068 BPM Atrial Rate : 066 BPM P-R Int : 000 ms QRS Dur : 124 ms QT Int : 428 ms P-R-T Axes : 000 -48 082 degrees QTc Int : 455 ms ATRIAL FIBRILLATION LEFT ANTERIOR FASCICULAR BLOCK LEFT VENTRICULAR HYPERTROPHY WITH QRS WIDENING AND REPOLARIZATION ABNORMALITY POOR R WAVE PROGRESSION ABNORMAL ECG WHEN COMPARED WITH ECG OF 25-JUN-2018 10:05, NO SIGNIFICANT CHANGE WAS FOUND Confirmed by JOSE MANUEL PUENTES MD ([id number]) on 03/21/2019 11:32:26 AM Referred By: Confirmed By:JOSE MANUEL PUENTES MD
== END 2019-03-19 12:46 ==
LOC: JER 06:50
PROC: 3E033GC Introduction of Other Therapeutic Substance into Peripheral Vein, Percutaneous Approach (ICD-10-PCS; principal; 2019-03-19)
DX: K59.09 Other constipation (principal); I25.10 Atherosclerotic heart disease of native coronary artery without angina pectoris; I11.0 Hypertensive heart disease with heart failure; I50.30 Unspecified diastolic (congestive) heart failure; I48.91 Unspecified atrial fibrillation; Z79.01 Long term (current) use of anticoagulants; I25.2 Old myocardial infarction; D64.9 Anemia, unspecified; E04.9 Nontoxic goiter, unspecified; Z86.711 Personal history of pulmonary embolism; Z86.718 Personal history of other venous thrombosis and embolism; Z96.643 Presence of artificial hip joint, bilateral; Z96.659 Presence of unspecified artificial knee joint; Z88.5 Allergy status to narcotic agent; Z91.041 Radiographic dye allergy status
CPT/HCPCS: 36415; 74177-TC; 80053; 81003; 83605; 83690; 85025; 87077; 87086; 93005; 93010; 96365; 99283-25; J7030

== ENCOUNTER 2019-04-15 16:00 | Emergency (ER) | payer OTHER, BC ==
--- NOTE | 2019-04-15 16:36 | PDOC ---
History of Present Illness - General Chief Complaint: Nausea Stated Complaint: NAUSEA Time Seen by Provider: 04/15/19 16:35 History Source: Patient Exam Limitations: No Limitations Past History - Past Medical History Allergies/Adverse Reactions: Allergies Allergy/AdvReac Type Severity Reaction Status Date / Time Iodinated Contrast Media Allergy Unknown Hives Verified 03/19/19 07:33 morphine Allergy Nausea for Verified 03/19/19 07:33 long periods IV Contrast dyes Allergy Hives Uncoded 03/19/19 07:33 Home Medications: Ambulatory Orders Atorvastatin Ca [Lipitor] 40 mg PO DAILY 11/27/17 Olmesartan Medoxomil [Benicar -] 40 mg PO DAILY 11/27/17 Rivaroxaban [Xarelto] 20 mg PO DAILY 11/27/17 Metoprolol Succinate [Toprol Xl] 25 mg PO DAILY 12/17/17 Hydralazine HCl 10 mg PO BID 03/19/19 Bimatoprost [Lumigan] 1 drop OU HS 04/15/19 Docusate Sodium [Colace -] 100 mg PO TID PRN 04/15/19 Gabapentin [Neurontin] 300 mg PO DAILY PRN 04/15/19 Polyethylene Glycol 3350 [Miralax 119 gm Btl -] 17 gm PO DAILY PRN 04/15/19 Sennosides [Senna -] 2 tab PO HS PRN 04/15/19 Anemia: Yes Asthma: No Cancer: No Cardiac Disorders: Yes (A [place], [place] 2016) CVA: No COPD: No CHF: Yes DVT: Yes Dementia: No Diabetes: No GI Disorders: No Disorders: No HTN: Yes Hypercholesterolemia: Yes Liver Disease: No Seizures: No Thyroid Disease: No (GOITER) - Surgical History Abdominal Surgery: Yes (ovarian cyst removal, hysterectomy) Appendectomy: Yes Cholecystectomy: No Orthopedic Surgery: Yes (REUBEN HIP REPLACEMENT, TOTAL KNEE REPLACEMENT) - Immunization History Td Vaccination: Yes Immunization Up to Date: (UNKNOWN) - Psycho Social/Smoking Cessation Hx Smoking Status: No Smoking History: Never smoked Have you smoked in the past 12 months: No Number of Cigarettes Smoked Daily: 0 If you are a former smoker, when did you quit?: 60 yrs ago Hx Alcohol Use: No Drug/Substance Use Hx: No Substance Use Type: None Hx Substance Use Treatment: No Discharge - Discharge Information Condition: Good - Follow up/Referral Referrals: Iam Rodriguez MD [Primary Care Provider] - - Patient Discharge Instructions - Post Discharge Activity
[2019-04-15 16:41] VITALS: BP 159/90; PULSE 68; TEMP 97.6; BMI 30.4
--- NOTE | 2019-04-15 16:51 | PDOC ---
Attending Attestation - Resident Resident Name: AlixCatracho - ED Attending Attestation I have performed the following: I have examined & evaluated the patient, The case was reviewed & discussed with the resident, I agree w/resident's findings & plan, Exceptions are as noted - HPI HPI: 04/15/19 16:45 88 yo F wit h/o htn hld aortic stenosis,CHF, prior DVT PE on elequis, chronic constipation, afib prior [place] CAD here today c/o progressivly worsening nausea and fatigue. pt states she has not had a solid meal on one week. decreaed urination. denies cp or sob. states she feels weak with walking short distances. denies current vertigo. no f/c no focal weakness. no urinary complaints of dysuria. no other current complaints. pt was seen by dr quinton tan today sent to ED for evaluation. 04/15/19 17:58 pt states in addition she has had occasional blood with stools. no abd pain. did have colonospcpy in the past which was normal. Prior abdominal surgeries including appendectomy, ovarian cystectomy, hysterectomy. - Physicial Exam PE: 04/15/19 16:49 awake alert lungs decreased breath sounds left lung base. heart rrr no mrg abd soft nt nd ext wwp. no edema. no calf tenderness. skin warm and dry. strength with 5/5 left lower ext. right 4/5 . - Medical Decision Making 04/15/19 16:50 88 yo F h/o as, afib. htn cabg, hld, chf her with fatigue and nausea. differential infection such as uti, pneumonia, electrolyte abnormality such as hyponatremia, 04/15/19 18:01 abd soft nt on my exam. pt has had recent ct a/p which shows possible gallstones , but otherwise unremarkable. pt is not vomiting therfore sbo unlikely and nontender abd. labs sent and pending. Heart Score/ECG Review #1 General ECG Interpretation: Sinus Rhythm, Normal Rate, Normal Intervals, No acute ischemic changes Compared to previous ECG there are: Other (left axis.)
--- NOTE | 2019-04-15 18:17 | PDOC ---
History of Present Illness - General Chief Complaint: Nausea Stated Complaint: NAUSEA Time Seen by Provider: 04/15/19 16:35 History Source: Patient Exam Limitations: No Limitations - History of Present Illness Initial Comments: 04/15/19 16:45 88 yo F wit h/o htn hld aortic stenosis,CHF, prior DVT PE on elequis, chronic constipation, afib prior [place] CAD here today c/o progressivly worsening nausea and fatigue. pt states she has not had a solid meal on one week. decreaed urination. denies cp or sob. states she feels weak with walking short distances. denies current vertigo. no f/c no focal weakness. no urinary complaints of dysuria. no other current complaints. pt was seen by dr quinton tan today sent to ED for evaluation. 04/15/19 17:58 pt states in addition she has had occasional blood with stools. no abd pain. did have colonospcpy in the past which was normal. Prior abdominal surgeries including appendectomy, ovarian cystectomy, hysterectomy. 04/15/19 18:16 Past History - Past Medical History Allergies/Adverse Reactions: Allergies Allergy/AdvReac Type Severity Reaction Status Date / Time Iodinated Contrast Media Allergy Unknown Hives Verified 03/19/19 07:33 morphine Allergy Nausea for Verified 03/19/19 07:33 long periods IV Contrast dyes Allergy Hives Uncoded 03/19/19 07:33 Home Medications: Ambulatory Orders Atorvastatin Ca [Lipitor] 40 mg PO DAILY 11/27/17 Olmesartan Medoxomil [Benicar -] 40 mg PO DAILY 11/27/17 Rivaroxaban [Xarelto] 20 mg PO DAILY 11/27/17 Metoprolol Succinate [Toprol Xl] 25 mg PO DAILY 12/17/17 Hydralazine HCl 10 mg PO BID 03/19/19 Bimatoprost [Lumigan] 1 drop OU HS 04/15/19 Cephalexin [Keflex] 500 mg PO TID #21 capsule MDD 3 04/15/19 Docusate Sodium [Colace -] 100 mg PO TID PRN 04/15/19 Gabapentin [Neurontin] 300 mg PO DAILY PRN 04/15/19 Polyethylene Glycol 3350 [Miralax 119 gm Btl -] 17 gm PO DAILY PRN 04/15/19 Sennosides [Senna -] 2 tab PO HS PRN 04/15/19 Anemia: Yes Asthma: No Cancer: No Cardiac Disorders: Yes (A FIB, [place] 2017) CVA: No COPD: No CHF: Yes DVT: Yes Dementia: No Diabetes: No GI Disorders: No Disorders: No HTN: Yes Hypercholesterolemia: Yes Liver Disease: No Seizures: No Thyroid Disease: No (GOITER) - Surgical History Abdominal Surgery: Yes (ovarian cyst removal, hysterectomy) Appendectomy: Yes Cholecystectomy: No Orthopedic Surgery: Yes (REUBEN HIP REPLACEMENT, TOTAL KNEE REPLACEMENT) - Immunization History Td Vaccination: Yes Immunization Up to Date: (UNKNOWN) - Psycho Social/Smoking Cessation Hx Smoking Status: No Smoking History: Never smoked Have you smoked in the past 12 months: No Number of Cigarettes Smoked Daily: 0 If you are a former smoker, when did you quit?: 60 yrs ago Hx Alcohol Use: No Drug/Substance Use Hx: No Substance Use Type: None Hx Substance Use Treatment: No Review of Systems - Review of Systems Constitutional: No: Chills, Diaphoresis, Fever HEENTM: No: Eye Pain, Mouth Swelling Respiratory: No: Cough, Shortness of Breath Cardiac (ROS): No: Chest Pain, Edema, Irregular Heart Rate ABD/GI: Yes: Nausea, Rectal Bleeding : No: Burning, Dysuria, Discharge Integumentary: Yes: Other Neurological: Yes: Weakness All Other Systems: Reviewed and Negative *Physical Exam - Vital Signs Last Vital Signs Temp Pulse Resp BP Pulse Ox 97.6 F 68 18 159/90 97 04/15/19 16:13 04/15/19 16:13 04/15/19 16:13 04/15/19 16:13 04/15/19 16:13 - Physical Exam 04/15/19 18:17 04/15/19 16:49 awake alert lungs decreased breath sounds left lung base. heart rrr no mrg abd soft nt nd ext wwp. no edema. no calf tenderness. skin warm and dry. strength with 5/5 left lower ext. right 4/5 . 04/15/19 18:17 ED Treatment Course - LABORATORY CBC & Chemistry Diagram: 04/15/19 17:50 04/15/19 17:50 - RADIOLOGY Radiology Studies Ordered: Category Date Time Status CHEST PA & LAT [RAD] Stat Radiology 04/15/19 16:35 Ordered Medical Decision Making - Medical Decision Making 04/15/19 16:50 88 yo F h/o as, afib. htn cabg, hld, chf her with fatigue and nausea. differential infection such as uti, pneumonia, electrolyte abnormality such as hyponatremia, 04/15/19 18:01 abd soft nt on my exam. pt has had recent ct a/p which shows possible gallstones , but otherwise unremarkable. pt is not vomiting therfore sbo unlikely and nontender abd. labs sent and pending. 04/15/19 18:18 04/15/19 18:55 pt positive for a uti, refusing to stay in hospital. requesting for iv to be removed and called [facility]. explained she has a uti. will treat with keflex. feels improved following zofran. told to return for fever, vomiting or any concerns. Discharge - Discharge Information Problems reviewed: Yes Clinical Impression/Diagnosis: UTI (urinary tract infection) Condition: Improved Disposition: HOME - Admission No - Additional Discharge Information Prescriptions: Cephalexin [Keflex] 500 mg PO TID #21 capsule MDD 3 - Follow up/Referral Referrals: Iam Cast MD [Primary Care Provider] - - Patient Discharge Instructions Patient Printed Discharge Instructions: Urinary Tract Infection Additional Instructions: you have a urinary tract infection . you should take antiobiotic kelfex 500 mg three times a day for one week. follow up pushpa Cast next week. return for vomiting , dizziness or any concerns. - Post Discharge Activity
[2019-04-15 18:19] LABS: BASO % 0.6 % (0-2.0); EOS % 2.3 % (0-4.5); HEMATOCRIT 39.8 % (32.4-45.2); HEMOGLOBIN 13.2 GM/dl (10.7-15.3); LYMPH % 21.1 % (8-40); MCH 29.8 pg (25.7-33.7); MCHC 33.2 g/dl (32.0-36.0); MEAN CELL VOLUME 89.9 fl (80-96); MEAN PLT VOLUME 9.4 fl (7.5-11.1); MONO % 6.8 % (3.8-10.2); NEUT % 69.2 % (42.8-82.8); PLATELET COUNT 253 K/MM3 (134-434); RBC 4.43 M/mm3 (3.60-5.2); RDW 13.5 % (11.6-15.6); WHITE BLOOD COUNT 7.9 K/mm3 (4.0-10.8)
[2019-04-15 18:28] LABS: BILIRUBIN,TOTAL 1.8 mg/dl (0.2-1); CALCIUM 9.5 mg/dl (8.5-10); CREATININE 0.9 mg/dl (0.55-1.3); INR 2.44 (0.82-1.09); POTASSIUM 4.1 mmol/L (3.5-5.1); PROTHROMBIN TIME (PATIENT) 26.8 SEC (10.2-13.0); TOT PROT 7.1 g/dl (6.4-8.2)
[2019-04-15] MEDS ORDERED: ONDANSETRON 4 MG/2 ML VIAL IVPUSH ONE (18:32)
[2019-04-15] MEDS ORDERED: ONDANSETRON 4 MG/2 ML VIAL ONE (18:40)
[2019-04-15 18:51] LABS: EPITHELIAL CELLS MODERATE /hpf
[2019-04-15] MEDS ORDERED: CEPHALEXIN MONOHYDRATE 500 MG CAPSULE (UD) PO ONE (18:52)
[2019-04-15] MEDS ORDERED: CEPHALEXIN MONOHYDRATE 500 MG CAPSULE (UD) ONE (18:55)
--- NOTE | 2019-04-16 13:34 | EKG ---
Test Reason : Blood Pressure : / mmHG Vent. Rate : 069 BPM Atrial Rate : 070 BPM P-R Int : 000 ms QRS Dur : 122 ms QT Int : 448 ms P-R-T Axes : 000 -44 070 degrees QTc Int : 480 ms ATRIAL FIBRILLATION LEFT AXIS DEVIATION LEFT VENTRICULAR HYPERTROPHY WITH QRS WIDENING ABNORMAL ECG WHEN COMPARED WITH ECG OF 19-MAR-2019 07:38, NO SIGNIFICANT CHANGE WAS FOUND Confirmed by MD DILLAN, ENEIDA ([id number]) on 04/16/2019 1:34:23 PM Referred By: DR BLACKMON Confirmed By:ENEIDA GRIMALDO MD
== END 2019-04-15 19:01 | disposition home or self-care (01) ==
LOC: FER 16:00
PROC: 3E033GC Introduction of Other Therapeutic Substance into Peripheral Vein, Percutaneous Approach (ICD-10-PCS; principal; 2019-04-15)
DX: N39.0 Urinary tract infection, site not specified (principal); I11.0 Hypertensive heart disease with heart failure; I35.0 Nonrheumatic aortic (valve) stenosis; I50.9 Heart failure, unspecified; I25.10 Atherosclerotic heart disease of native coronary artery without angina pectoris; I48.91 Unspecified atrial fibrillation; I25.2 Old myocardial infarction; E78.5 Hyperlipidemia, unspecified; K59.09 Other constipation; E04.9 Nontoxic goiter, unspecified; Z86.718 Personal history of other venous thrombosis and embolism; Z86.711 Personal history of pulmonary embolism; Z79.01 Long term (current) use of anticoagulants; Z88.6 Allergy status to analgesic agent; Z91.041 Radiographic dye allergy status; Z96.643 Presence of artificial hip joint, bilateral; Z96.653 Presence of artificial knee joint, bilateral
CPT/HCPCS: 36415; 71046-TC-FY; 80053; 81003; 81015; 84484; 85025; 85610; 93005; 96374; 99284-25

== ENCOUNTER 2019-04-16 19:31 | Emergency (ER) | payer OTHER, BC ==
--- NOTE | 2019-04-16 19:43 | PDOC ---
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 The patient was walking in her room when she turned to look back her cane caught on the floor and she fell to the ground onto her buttocks. She was unable to stand up again. She denies head trauma or LOC. She initially presented to the ER yesterday from a clinic after she had nausea and was unable to eat for several days. She was found to have a UTI yesterday and was started on Keflex for which she took two doses so far. She has been able to east today and she only complains of pain in the buttocks and upper thighs. PSHX: hip replacements, knee replacements ROS GENERAL/CONSTITUTIONAL: No fever or chills. No weakness. HEAD, EYES, EARS, NOSE AND THROAT: No sore throat. CARDIOVASCULAR: No chest pain + chronic shortness of breath RESPIRATORY: No cough, wheezing, or hemoptysis. GASTROINTESTINAL: No nausea, vomiting, diarrhea or constipation. GENITOURINARY: No dysuria, frequency, or change in urination. MUSCULOSKELETAL: + joint or muscle swelling or pain. No neck or back pain. SKIN: No rash NEUROLOGIC: No headache, vertigo, loss of consciousness, or change in strength/ sensation. PE GENERAL: Awake, alert, and fully oriented, in no acute distress HEAD: No signs of trauma, normocephalic, atraumatic EYES: EOMI, sclera anicteric, conjunctiva clear ENT: oropharynx clear without exudates. Moist mucosa NECK: Normal ROM, supple LUNGS: No distress, speaks full sentences, clear to auscultation bilaterally HEART: Regular rate and rhythm, normal S1 and S2, no murmurs, rubs or gallops, peripheral pulses normal and equal bilaterally. ABDOMEN: Soft, nontender, normoactive bowel sounds. No guarding, no rebound. No masses EXTREMITIES : Normal inspection, Normal range of motion, no edema. No clubbing or cyanosis. NEUROLOGICAL: Cranial nerves II through XII grossly intact. Normal speech, normal gait, no focal sensorimotor deficits SKIN: Warm, Dry, normal turgor, no rashes or lesions noted MDM DDX including but not limited to: r/o ntracranial trauma vs fx vs dislocations ED Course: ekg: afib rate of 66bpmm L axis, lvh, no changes from prior on 04/15/19 CT head and C spine - without acute findings CXR and pelvis XR - no acute pathology elevated troponin to 0.10 patient does not desire to stay in the hospital, amenable to a 3 hour trop Will trend trop 3 hour trop stable at 0.10 with no uptrending value Patient informed of trop, still desires to AMA. She expresses capacity and understanding that risks of leaving include cardaic arrest, hear attack, stroke, , severe or permanent disability and she still desires to leave against medical advise. The risks and outcomes were discussed with her for > 30min. She still desires to leave. F/u instructions and strict return precautions were provided to her and she was encouraged to return to the ER if she developed any worsening or concerning symptoms. Aleta Saravia, PGY2 Emergency Medicine Past History - Past Medical History Allergies/Adverse Reactions: Allergies Allergy/AdvReac Type Severity Reaction Status Date / Time Iodinated Contrast Media Allergy Unknown Hives Verified 03/19/19 07:33 morphine Allergy Nausea for Verified 03/19/19 07:33 long periods IV Contrast dyes Allergy Hives Uncoded 03/19/19 07:33 Home Medications: Ambulatory Orders Atorvastatin Ca [Lipitor] 40 mg PO DAILY 11/27/17 Olmesartan Medoxomil [Benicar -] 40 mg PO DAILY 11/27/17 Rivaroxaban [Xarelto] 20 mg PO DAILY 11/27/17 Metoprolol Succinate [Toprol Xl] 25 mg PO DAILY 12/17/17 Hydralazine HCl 10 mg PO BID 03/19/19 Bimatoprost [Lumigan] 1 drop OU HS 04/15/19 Cephalexin [Keflex] 500 mg PO TID #21 capsule MDD 3 04/15/19 Docusate Sodium [Colace -] 100 mg PO TID PRN 04/15/19 Gabapentin [Neurontin] 300 mg PO DAILY PRN 04/15/19 Polyethylene Glycol 3350 [Miralax 119 gm Btl -] 17 gm PO DAILY PRN 04/15/19 Sennosides [Senna -] 2 tab PO HS PRN 04/15/19 Anemia: Yes Asthma: No Cancer: No Cardiac Disorders: Yes (Fabiano V[place], [place] 2016) CVA: No COPD: No CHF: Yes DVT: Yes Dementia: No Diabetes: No GI Disorders: No Disorders: No HTN: Yes Hypercholesterolemia: Yes Liver Disease: No Seizures: No Thyroid Disease: No (GOITER) - Surgical History Abdominal Surgery: Yes (ovarian cyst removal, hysterectomy) Appendectomy: Yes Cholecystectomy: No Orthopedic Surgery: Yes (REUBEN HIP REPLACEMENT, TOTAL KNEE REPLACEMENT) - Immunization History Td Vaccination: Yes Immunization Up to Date: (UNKNOWN) - Psycho Social/Smoking Cessation Hx Smoking Status: No Smoking History: Never smoked Have you smoked in the past 12 months: No Number of Cigarettes Smoked Daily: 0 If you are a former smoker, when did you quit?: 60 yrs ago Hx Alcohol Use: No Drug/Substance Use Hx: No Substance Use Type: None Hx Substance Use Treatment: No ED Treatment Course - LABORATORY CBC & Chemistry Diagram: 04/16/19 21:00 04/16/19 21:00 Discharge - Discharge Information Problems reviewed: Yes Clinical Impression/Diagnosis: Elevated troponin Condition: Stable Disposition: [facility]ILITY - Admission No - Follow up/Referral - Patient Discharge Instructions Additional Instructions: You were seen in the ED after a fall Your labs were only significant for an elevated troponin that remained stable at the repeat 3 hour dillon You decided to sign out against medical advise You understand that the risks include heart attack, stroke, respiratory or cardiac arrest, permanent disability or Please follow up with your Emergency Medical Services Coordinator Dr. Liu within the next 3 days. See your Primary Care Physician within 1 week. Return to the ED immediately if you experience repeat fall, chest pain, shortness of breath or any other concerning symptoms - Post Discharge Activity
[2019-04-16] MEDS ORDERED: ACETAMINOPHEN 1000 MG/100 ML VIAL (NON FORMULARY) IVPB ONE (19:47)
[2019-04-16] MEDS ORDERED: SODIUM CHLORIDE 1,000 ML IV SCH (20:00)
[2019-04-16] MEDS ORDERED: SODIUM CHLORIDE 500 ML IV SCH (20:00)
[2019-04-16] MEDS ORDERED: ACETAMINOPHEN INJECTION 100 ML IVPB ONE (20:40)
[2019-04-16 21:12] VITALS: BMI 67.2
[2019-04-16 21:13] LABS: BASO % 0.7 % (0-2.0); EOS % 2.8 % (0-4.5); HEMOGLOBIN 12.4 GM/dL (10.7-15.3); LYMPH % 14.8 % (8-40); MCH 29.6 pg (25.7-33.7); MCHC 32.7 g/dl (32.0-36.0); MEAN CELL VOLUME 90.3 fl (80-96); MEAN PLT VOLUME 9.3 fl (7.5-11.1); MONO % 7.9 % (3.8-10.2); NEUT % 73.8 % (42.8-82.8); PLATELET COUNT 235 K/MM3 (134-434); RDW 14.2 % (11.6-15.6); WHITE BLOOD COUNT 8.3 K/mm3 (4.0-10.0)
[2019-04-16 21:35] LABS: INR 1.84 (0.83-1.09); PROTHROMBIN TIME (PATIENT) 21.8 SEC (9.7-13.0)
[2019-04-16 21:38] LABS: ACTIVATED PTT 34.9 SECONDS (25.2-36.5)
[2019-04-16 21:39] LABS: MAGNESIUM 2.1 mg/dL (1.8-2.4)
[2019-04-16 21:41] LABS: ALBUMIN 3.6 g/dl (3.4-5.0); BILIRUBIN,TOTAL 1.4 mg/dL (0.2-1); BLOOD UREA NITROGEN 15.5 mg/dL (7-18); CALCIUM 9.1 mg/dL (8.5-10.1); PHOSPHOROUS 4.1 mg/dL (2.5-4.9); POTASSIUM 4.3 mmol/L (3.5-5.1); TOT PROT 6.5 g/dl (6.4-8.2)
[2019-04-16 21:55] VITALS: BP 157/92; PULSE 62; TEMP 98
--- NOTE | 2019-04-16 22:08 | PDOC ---
Documentation entered by Ronel Adan SCRIBE, acting as scribe for Dory Lincoln MD. Dory Lincoln MD: This documentation has been prepared by the Loco espinoza Nirvannie, SCRIBE, under my direction and personally reviewed by me in its entirety. I confirm that the documentation accurately reflects all work, treatment, procedures, and medical decision making performed by me. Attending Attestation - Resident Resident Name: Aleta Saravia - ED Attending Attestation I have performed the following: I have examined & evaluated the patient, The case was reviewed & discussed with the resident, I agree w/resident's findings & plan, Exceptions are as noted - HPI HPI: 04/16/19 20:36 The patient is an 88 year old female, with a significant past medical history of HTN, HLD, CHF, DVT/PE (on Eliquis). Afib, CAD (s/p [place], aortic sentosis), and recent diagnosis of UTI (04/15), who presents to the emergency department via EMS from [facility] s/p mechanical fall. As per patient she was ambulating with her cane at which time she went to look back and getting her cane stuck onto the floor subsequently falling onto aubree buttocks. She notes not being able to ambulate s/p fall. While in the ED, patient complains of pains to the buttocks and thighs. She denies any LOC. She denies recent fevers, chills, headache or dizziness. She denies recent nausea, vomiting, diarrhea or constipation. She denies recent dysuria, frequency, urgency or hematuria. She denies recent chest pain or shortness of breath. Allergies: Contrast, Morphine - Physicial Exam PE: 04/16/19 21:19 GENERAL: The patient is in no acute distress. ENT: Ears normal, nares patent, oropharynx clear without exudates. Moist mucous membranes. NECK: Normal range of motion, supple, no midline tenderness LUNGS: Breath sounds equal, clear to auscultation bilaterally. No wheezes, and no crackles. HEART:Regular rate and rhythm, normal S1 and S2 without murmur, rub or gallop. ABDOMEN: Soft, nontender, normoactive bowel sounds. EXTREMITIES: Normal range of motion, no edema. NEUROLOGICAL: Cranial nerves II through XII grossly intact. Normal speech. No focal neurological deficits. SKIN: Warm, Dry, normal turgor, no rashes or lesions noted. - Medical Decision Making 04/16/19 22:04 Ms. Adams is an 88 yo F who presents to the emergency department status post a fall at her assisted living facility. Of note patient had a visit to the emergency department yesterday secondary to decreased p.o. intake, and findings of UTI. At that time patient refused admission. She states that today she was in route to the dining plaza. She turned and attempted to use her cane but it got caught and she fell. No loss of consciousness. Patient landed on her bottom. She was unable to get herself to a standing position. Differential diagnosis: Syncope, vasovagal episode, mechanical fall, arrhythmia, ACS Will do: Lab EKG CT head Radiographs of pelvis EKG: Atrial fibrillation, rate of 66 bpm, left axis deviation, LVH, no ST elevations or depressions, T waves are upright 04/16/19 22:06 Laboratory Tests 04/16/19 04/16/19 04/16/19 21:00 21:00 21:00 Hgb 12.4 Hct 38.0 INR BUN 15.5 Creatinine 1.0 Troponin I 0.10 H 04/16/19 21:00 Hgb Hct INR 1.84 H BUN Creatinine Troponin I Troponin 0.1 as compared to 0.03 yesterday Patient denies chest pain, shortness of breath, palpitation Would like to admit this patient given abn trop and her fall today 04/17/19 00:35 Patient refusing admission. She is agreeable to repeat troponin. Troponin repeated Patient will AMA
--- NOTE | 2019-04-17 15:27 | EKG ---
Test Reason : Blood Pressure : / mmHG Vent. Rate : 066 BPM Atrial Rate : 083 BPM P-R Int : 000 ms QRS Dur : 122 ms QT Int : 456 ms P-R-T Axes : 000 -43 091 degrees QTc Int : 478 ms ATRIAL FIBRILLATION WITH A COMPETING JUNCTIONAL PACEMAKER LEFT AXIS DEVIATION LEFT VENTRICULAR HYPERTROPHY WITH QRS WIDENING ABNORMAL QRS-T ANGLE, CONSIDER PRIMARY T WAVE ABNORMALITY ABNORMAL ECG WHEN COMPARED WITH ECG OF 15-APR-2019 16:47, NO SIGNIFICANT CHANGE WAS FOUND Confirmed by MD DILLAN, ENEIDA ([id number]) on 04/17/2019 3:27:13 PM Referred By: Confirmed By:ENEIDA GRIMALDO MD
== END 2019-04-17 06:11 ==
LOC: JER 19:31
DX: R74.8 Abnormal levels of other serum enzymes (principal); M54.5 Low back pain; M79.651 Pain in right thigh; M79.652 Pain in left thigh; W18.39XA Other fall on same level, initial encounter; Y93.89 Activity, other specified; Y92.129 Unspecified place in nursing home as the place of occurrence of the external cause; Y99.8 Other external cause status; Z99.89 Dependence on other enabling machines and devices; I25.10 Atherosclerotic heart disease of native coronary artery without angina pectoris; I11.0 Hypertensive heart disease with heart failure; I50.9 Heart failure, unspecified; I25.2 Old myocardial infarction; Z79.01 Long term (current) use of anticoagulants; I35.0 Nonrheumatic aortic (valve) stenosis; K59.04 Chronic idiopathic constipation; E78.5 Hyperlipidemia, unspecified; Z86.711 Personal history of pulmonary embolism; Z86.718 Personal history of other venous thrombosis and embolism; Z91.041 Radiographic dye allergy status
CPT/HCPCS: 36415; 70450-TC; 71045-TC-FY; 72125-TC; 72170-TC-FY; 80053; 83735; 84100; 84484; 85025; 85610; 85730; 93005; 93010; 99284-25; J0131; J7030

== ENCOUNTER 2019-06-13 12:32 | Emergency (ER) | payer OTHER, BC ==
[2019-06-13 12:42] VITALS: BMI 29.7
--- NOTE | 2019-06-13 13:46 | PDOC ---
History of Present Illness - General Chief Complaint: Wound Stated Complaint: SENT BY PCP Time Seen by Provider: 06/13/19 13:09 History Source: Patient Exam Limitations: No Limitations - History of Present Illness Initial Comments: 06/13/19 13:39 89YOF with h/o recent TAVR (for severe 2-3 weeks ago through b/l groin), AF ( on Xarelto and took this up until the day before her TAVR and restarted the day after the procedure), CAD, CHF, and bilateral DVTs, who was instructed to come into the ED by her PCP Dr. Moeller for worsening LLE warmth, redness, and tenderness for the past 4 days despite taking PO antibiotics as prescribed by Dr. Moeller. She recalls that immediately after the TAVR, she had a developing hematoma from the left groin catheterization site and this turned into a large and tracking bruise which moved down her thigh. However, she notes the redness distal to this is new. She notes nausea 2/2 pain but denies f/c, vomiting, d/c, numbness, tingling, weakness focally, foot or leg lesions, drainage, or other symptoms. Her Xarelto dose was cut in half at the time of the TAVR and she notes that this is the daily dose she has been on since that time. Past History - Past Medical History Allergies/Adverse Reactions: Allergies Allergy/AdvReac Type Severity Reaction Status Date / Time Iodinated Contrast Media Allergy Unknown Hives Verified 06/13/19 12:42 morphine Allergy Nausea for Verified 06/13/19 12:42 long periods IV Contrast dyes Allergy Hives Uncoded 06/13/19 12:42 Home Medications: Ambulatory Orders Atorvastatin Ca [Lipitor] 40 mg PO DAILY 11/27/17 Olmesartan Medoxomil [Benicar -] 40 mg PO DAILY 11/27/17 Rivaroxaban [Xarelto] 20 mg PO DAILY 11/27/17 Metoprolol Succinate [Toprol Xl] 25 mg PO DAILY 12/17/17 Hydralazine HCl 10 mg PO BID 03/19/19 Bimatoprost [Lumigan] 1 drop OU HS 04/15/19 Cephalexin [Keflex] 500 mg PO TID #21 capsule MDD 3 04/15/19 Docusate Sodium [Colace -] 100 mg PO TID PRN 04/15/19 Gabapentin [Neurontin] 300 mg PO DAILY PRN 04/15/19 Polyethylene Glycol 3350 [Miralax 119 gm Btl -] 17 gm PO DAILY PRN 04/15/19 Sennosides [Senna -] 2 tab PO HS PRN 04/15/19 Anemia: Yes Asthma: No Cancer: No Cardiac Disorders: Yes (A FIB, [place] 2017) CVA: No COPD: No CHF: Yes DVT: Yes Dementia: No Diabetes: No GI Disorders: No Disorders: No HTN: Yes Hypercholesterolemia: Yes Liver Disease: No Seizures: No Thyroid Disease: No (GOITER) - Surgical History Abdominal Surgery: Yes (ovarian cyst removal, hysterectomy) Appendectomy: Yes Cardiac Surgery: Yes Cholecystectomy: No Orthopedic Surgery: Yes (REUBEN HIP REPLACEMENT, TOTAL KNEE REPLACEMENT) - Immunization History Td Vaccination: Yes Immunization Up to Date: (UNKNOWN) - Psycho Social/Smoking Cessation Hx Smoking Status: No Smoking History: Never smoked Have you smoked in the past 12 months: No Number of Cigarettes Smoked Daily: 0 If you are a former smoker, when did you quit?: 60 yrs ago Hx Alcohol Use: No Drug/Substance Use Hx: No Substance Use Type: None Hx Substance Use Treatment: No Review of Systems - Review of Systems Able to Perform ROS?: Yes Comments:: 06/13/19 13:54 GEN: no fever, chills, malaise, or generalized weakness HEENT: no ear pain, congestion, sore throat, vision change, or eye pain CV: no chest pain, palpitations, lightheadedness, syncope, or edema RESP: no SOB, wheezing, or cough GI: nausea, no abdominal pain, vomiting, diarrhea, constipation, or rectal bleed : no dysuria, hematuria, or discharge MSK: left lower leg pain/redness/swelling NEURO: no headache, vertigo, numbness, tingling, or focal weakness PSYCH: no SI, HI, or behavior change SKIN: no jaundice, rash, lesions, or unexplained bruises ROS otherwise negative except as noted in HPI *Physical Exam - Vital Signs Last Vital Signs Temp Pulse Resp BP Pulse Ox 98.3 F 74 18 164/80 98 06/13/19 12:38 06/13/19 12:38 06/13/19 12:38 06/13/19 12:38 06/13/19 12:38 - Physical Exam 06/13/19 13:55 GENERAL: frustrated but otherwise nontoxic-appearing, A/Ox4, no distress, answers questions appropriately HEENT: PERRLA, EOMI, moist mucous membranes NECK/BACK: no midline ttp, no spinal stepoff or deformity, no hematoma, full ROM , neck supple CARDIOVASCULAR: irregularly irregular, 3/6 systolic ejection murmur, strong peripheral pulses, capillary refill <2 seconds, extremities wwp, trace RLE edema , 1+ LLE edema LUNGS/RESPIRATORY: no respiratory distress, CTAB GI/ABDOMEN: symmetric [id number], normoactive BS, soft, no ttp, no midline pulsatile masses : no CVA tenderness EXTREMITIES: no muscle atrophy, no acute deformity SKIN: distal anterior LLE with erythema, warmth, and tenderness, warm and dry, no pallor, no jaundice, no skin breakdown, no cuts, no lesions NEUROLOGICAL: GCS 15, CN II-XII grossly intact, 5/5 strength proximally and distally, no facial droop ED Treatment Course - LABORATORY CBC & Chemistry Diagram: 06/13/19 14:50 06/13/19 14:50 Medical Decision Making - Medical Decision Making 06/13/19 14:20 Pt p/w LLE redness/warmth/pain 2-3 wks s/p TAVR in which they accessed her left femoral artery. Initial Vital Signs Temp Pulse Resp BP Pulse Ox 98.3 F 74 18 164/80 98 06/13/19 12:38 06/13/19 12:38 06/13/19 12:38 06/13/19 12:38 06/13/19 12:38 Exam: As noted in Physical Exam section. DDX IBNLT: cellulitis, osteomyelitis, necrotizing soft tissue infection, sepsis , DVT, superficial venous thrombosis, CHF exacerbation, PVD, pulmonary HTN, etc W/U ordered: Labs EKG Duplex X-ray leg to r/o gas. TX ordered: Tylenol, clindamycin IV EKG: Reviewed; results as noted in ECG Review section. US: Negative for DVT Laboratory Tests 06/13/19 06/13/19 14:50 14:50 WBC 6.5 RBC 4.33 Hgb 12.7 Hct 38.8 MCV 89.6 MCH 29.3 MCHC 32.7 RDW 14.6 Plt Count 229 MPV 8.8 Absolute Neuts (auto) 4.8 Neutrophils % 74.4 Lymphocytes % 16.3 Monocytes % 6.2 Eosinophils % 2.2 Basophils % 0.9 Nucleated RBC % 0 Sodium 140 Potassium 4.0 Chloride 103 Carbon Dioxide 29 Anion Gap 8 BUN 14.6 Creatinine 1.0 Est GFR (CKD-EPI)AfAm 58.66 Est GFR (CKD-EPI)NonAf 50.61 Random Glucose 100 Calcium 9.7 Total Bilirubin 1.3 H AST 23 ALT 20 Alkaline Phosphatase 70 Total Protein 7.6 Albumin 4.0 The Pt is unsafe for discharge at this time. They require further hospital observation, workup, and treatment. 06/13/19 15:41 The patient notes she was called by her daughter who just contacted [facility] ( where pt had her TAVR). Patient notes that reportedly her cardiac team who did the TAVR (Dr. Melanie Rutherford) would want to care for her at [facility]. Patient has preference for [facility] where her cardiac care team is located. 06/13/19 16:28 I spoke with the patient who states her cardiac team wants her there on the 5th floor inpatient. States she already has a room reserved which was arranged by her daughter with Dr. Rutherford's team. I have already spoken with the [facility] to get in touch with Dr. Rutherford to initiate transfer. I also spoke with the patient's daughter Eloise Adams who gives me ANJELICA Irwin's number in Dr. Rutherford's office. Alida states Dr. Rutherford has accepted the transfer and does want the patient at [facility] 5th floor. She confirms I can put Dr. Rutherford's name as accepting physician, and that transfer center will call back. She explains [facility] arranges their own ambulance transfer. Meanwhile, the patient remains in no distress albeit slightly confused and has had her clindamycin 600 mg IVPB already. Patient and family informed of plan for transfer and they agree with this plan. 06/13/19 19:00 Transfer paperwork completed and signed by all indicated parties. EMS crew arrives and transfers Pt to ambulance without issue. Vital Signs Temperature 98.4 F 06/13/19 17:01 Pulse Rate 64 06/13/19 19:27 Respiratory Rate 16 06/13/19 19:27 Blood Pressure 167/80 06/13/19 19:27 O2 Sat by Pulse Oximetry (%) 96 06/13/19 17:01 Discharge - Discharge Information Problems reviewed: Yes Clinical Impression/Diagnosis: Left leg cellulitis Condition: Guarded Disposition: TRANSFER ACUTE CARE/OTHER HOSP - Follow up/Referral Referrals: Iam Rodriguez MD [Primary Care Provider] - - Patient Discharge Instructions - Post Discharge Activity - Transfer to Acute Care Facility Receiving Facility Name: [facility] ([facility]) Accepting Physician:: Melanie Rutherford
[2019-06-13] MEDS ORDERED: ACETAMINOPHEN 500 MG TABLET (FP) PO ONE (14:15)
[2019-06-13] MEDS ORDERED: VANCOMYCIN HCL 1,500 MG in DEXTROSE 5%-WATER - 500 ML IVPB ONE (14:23)
[2019-06-13] MEDS ORDERED: CLINDAMYCIN 600MG PREMIX IVPB 600 MG/50 ML BAG IVPB ONE ×2 (14:35→15:30)
--- NOTE | 2019-06-13 15:22 | PDOC ---
Documentation entered by Samreen Martinez SCRIBE, acting as scribe for Chencho Fleming MD. Chenhco Fleming MD: This documentation has been prepared by the Michelle espinoza Xhesika, SCRIBE, under my direction and personally reviewed by me in its entirety. I confirm that the documentation accurately reflects all work, treatment, procedures, and medical decision making performed by me. Attending Attestation - Resident Resident Name: Lavinia Felton - ED Attending Attestation I have performed the following: I have examined & evaluated the patient, The case was reviewed & discussed with the resident, I agree w/resident's findings & plan, Exceptions are as noted - HPI HPI: 06/13/19 13:53 The patient is an 89 year old female, with a significant past medical history of recent TAVR (for severe 2-3 weeks ago through b/l groin), HTN, HLD, CHF, DVT/PE, Afib, CAD (s/p [place], aortic stenosis), and recent diagnosis of UTI (04/15) , who presents to the emergency department advised by PCP, Dr. Moeller for worsening LLE warmth, redness, and pain x 4days. Pt states she was placed on PO abx with no improvement of symptoms. The patient denies chest pain, shortness of breath, and dizziness. Denies fever , chills, cough, nausea, vomiting, and constipation. Denies dysuria, frequency, urgency and hematuria. Allergies: Contrast, Morphine PCP: Dr. Moeller Recycling Attendant: Dr. Liu - Physicial Exam PE: 06/13/19 13:54 Vitals: Triage Vital signs reviewed General Appearance: no acute distress, well nourished well developed, Neck: Supple;No Nuchal rigidity Chest Wall: Nontender Cardiac: Regular rate and rhythm, no murmurs, no rubs, no gallops, Lungs: Clear to auscultation bilateral, good air movement bilaterally, Extremities: +LLE cellulitis. - Medical Decision Making 06/13/19 16:39 Patient presents with complication from groin site infection from recent TAVR Patient's healthcare management requesting transfer to [place] for IV antibiotics and further management They have arranged for an inpatient bed Accepting MD is Dr. Rutherford patient and family aware arranging for transfer to [place] Findings, need for follow-up and strict return instructions discussed with patient.
[2019-06-13 15:41] LABS: BASO % 0.9 % (0-2.0); EOS % 2.2 % (0-4.5); HEMATOCRIT 38.8 % (32.4-45.2); HEMOGLOBIN 12.7 GM/dL (10.7-15.3); LYMPH % 16.3 % (8-40); MCH 29.3 pg (25.7-33.7); MCHC 32.7 g/dl (32.0-36.0); MEAN CELL VOLUME 89.6 fl (80-96); MEAN PLT VOLUME 8.8 fl (7.5-11.1); MONO % 6.2 % (3.8-10.2); NEUT % 74.4 % (42.8-82.8); PLATELET COUNT 229 K/MM3 (134-434); RBC 4.33 M/mm3 (3.60-5.2); RDW 14.6 % (11.6-15.6); WHITE BLOOD COUNT 6.5 K/mm3 (4.0-10.0)
[2019-06-13 16:01] LABS: BILIRUBIN,TOTAL 1.3 mg/dL (0.2-1); BLOOD UREA NITROGEN 14.6 mg/dL (7-18); CALCIUM 9.7 mg/dL (8.5-10.1); TOT PROT 7.6 g/dl (6.4-8.2)
[2019-06-13 17:04] VITALS: TEMP 98.4
[2019-06-13 18:21] LABS: INR 1.37 (0.83-1.09); PROTHROMBIN TIME (PATIENT) 16.2 SEC (9.7-13.0)
[2019-06-13 21:50] VITALS: BP 167/80; PULSE 64
--- NOTE | 2019-06-14 09:40 | EKG ---
Test Reason : Blood Pressure : / mmHG Vent. Rate : 063 BPM Atrial Rate : 416 BPM P-R Int : 000 ms QRS Dur : 168 ms QT Int : 472 ms P-R-T Axes : 000 -42 110 degrees QTc Int : 483 ms POOR DATA QUALITY, INTERPRETATION MAY BE ADVERSELY AFFECTED ATRIAL FIBRILLATION LEFT AXIS DEVIATION LEFT BUNDLE BRANCH BLOCK ABNORMAL ECG WHEN COMPARED WITH ECG OF 16-APR-2019 21:02, LEFT BUNDLE BRANCH BLOCK IS NOW PRESENT Confirmed by Ayush La MD ([id number]) on 06/14/2019 9:40:41 AM Referred By: Confirmed By:Ayush La MD
== END 2019-06-13 19:27 | disposition short-term general hospital (02) ==
LOC: JER 12:32
DX: L03.116 Cellulitis of left lower limb (principal); Y83.8 Other surgical procedures as the cause of abnormal reaction of the patient, or of later complication, without mention of misadventure at the time of the procedure; I25.10 Atherosclerotic heart disease of native coronary artery without angina pectoris; I11.0 Hypertensive heart disease with heart failure; I50.9 Heart failure, unspecified; I48.91 Unspecified atrial fibrillation; I25.2 Old myocardial infarction; I35.0 Nonrheumatic aortic (valve) stenosis; Z79.01 Long term (current) use of anticoagulants; E78.5 Hyperlipidemia, unspecified; Z95.2 Presence of prosthetic heart valve; Z86.711 Personal history of pulmonary embolism; Z86.718 Personal history of other venous thrombosis and embolism; Z87.440 Personal history of urinary (tract) infections; Z91.041 Radiographic dye allergy status; Z88.5 Allergy status to narcotic agent
CPT/HCPCS: 36415; 80053; 85025; 85610; 87040; 93005; 93010; 93971-TC; 96365; 96367; 99285-25